=== PATIENT | male | born 1955 | race Caucasian/White ===

== ENCOUNTER 2023-07-09 11:21 | Outpatient (AMB) | payer MEDICARE, SELFPAY ==
--- NOTE | 2023-07-09 11:21 | MHC.PC.OV ---
Vital Signs 07/09/23 11:22 Height 5 ft 8 in BMI Reason not done Patient refused/unable BP 136/60 Blood Pressure Location Lt brachial Position Sitting Pulse 76 Pulse Source Pulse Oximeter Pulse Oximetry (%) 97 Oxygen Delivery Method Room Air Intake Visit Reasons: DM F/U Heel Curver: Not Required per policy Accompanied by: Self / Same As Patient Allergies levofloxacin [Levaquin] Allergy (Unknown, Verified 07/09/23 11:22) hives Medication List - Last Reconciled 07/09/23 by Abilio Chand MD atorvastatin 80 mg PO DAILY blood sugar diagnostic (OneTouch Ultra Test strips) Test 3 times daily blood sugar diagnostic Onetouch Ultra lancets use to check once a day blood-glucose meter (OneTouch Ultra2 Meter) Test 3 times Daily chair, wheel (Wheel chair) As directed chair, wheel (Wheel chair) As directed clopidogrel 75 mg PO DAILY empagliflozin (Jardiance) 10 mg PO QAM glipizide ER 5 mg PO DAILY insulin detemir U-100 (Levemir FlexTouch U-100 Insulin) 85 units (0.85 mL) subcut DAILY 30 days ketoconazole 2% 1 appl topical BID ketoconazole-hydrocortisone 2-2.5 % tid prn topical; lisinopril-hydrochlorothiazide 10-12.5 mg 1 tab PO DAILY metformin 1,000 mg (2 x 500 mg) PO BID 90 days paroxetine HCl 30 mg PO DAILY pen needle, diabetic As directed with insulin daily tamsulosin 0.4 mg PO DAILY trazodone 50 mg PO BEDTIME PRN Tobacco use date assessed: 12/14/22 Fall risk assessment: No Falls in past year Last assessed Fall Risk: 07/09/23 Dental Screening Dental Screen Date: 07/09/23 Did you have a dental visit in the last 12 months?: No Did you have a dental problem in the last 6 months where you did not have access to dental care?: No Was dental information given to patient?: Patient has dentist HPI DM F/U HPI Details DM hypertension and hyperlipidemia; sees endo; stable PFSH Medical History Obesity Adult general medical exam Screening for prostate cancer Peripheral vascular disease Diabetes mellitus Hyperlipidemia Surgical History History of colonoscopy History of angioplasty of vein Amputated right leg History of foot surgery Family History Father No problems noted. Mother No problems noted. Social History Housing: Apartment Alcohol intake: never Patient Tobacco Use Status: Former Tobacco user Quit Date: 20 years ago e-Cigarette/Vaping Use: Never Used Second Hand Smoke Exposure: No service: No Current occupational status: retired and disabled Cognitive needs: Yes Hearing needs: No Vision needs: Yes Questionnaire PHQ-9 Over the last 2 weeks, how often have you been bothered by any of the following problems? 1. Little interest or pleasure in doing things: not at all 2. Feeling down, depressed, or hopeless: not at all 3. Trouble falling or staying asleep, or sleeping too much: not at all 4. Feeling tired or having little energy: not at all 5. Poor appetite or overeating: not at all 6. Feeling bad about yourself - or that you are a failure or have let yourself or your family down: not at all 7. Trouble concentrating on things, such as reading the newspaper or watching television: not at all 8. Moving or speaking so slowly that other people could have noticed. Or the opposite - being so fidgety or restless that you have been moving around a lot more than usual: not at all 9. Thoughts that you would be better off or of hurting yourself in some way: not at all Total score: 0 Depression Screening Interpretation: Negative Source: Developed by Drs. William Salmeron, Anupama Mayo, Koby Mccray and colleagues, with an educational jayce from [employer]. Thrive Questionnaire Date Thrive assessed: 07/09/23 I am a: Patient What is your living situation today?: I have a steady place to live Within the past 12 months, did the food you bought not last and you didn't have the money to get more?: Never true Within the past 12 months, did you worry whether your food would run out before you got money to buy more?: Never true Do you have trouble paying for medicines?: No Do you have trouble getting transportation to medical appointments?: No Do you have trouble paying your heating and electricity bill?: No Do you have trouble taking care of your child, family member or friend?: No Do you have trouble with day-to-day activities such as bathing, preparing meals, shopping, managing finances, etc.?: No Are you currently unemployed and looking for a job?: No Are you interested in more education?: No Please select the resources that you would like help with: None AUDIT C Alcohol Use Questionnaire (AUDIT-C) 1. How often do you have a drink containing alcohol?: Never 3. How often do you have six or more drinks on one occasion?: Never Total Score: 0 Score Reviewed/Action Taken: No IVY-7 AMB Questionnaire IVY-7 Date IVY - 7 assessed: 07/09/23 Feeling nervous, anxious, or on edge: 0 = Not at all Not being able to stop or control worryin = Not at all Worrying too much about different things: 0 = Not at all Trouble relaxin = Not at all Being so restless that it is hard to sit still: 0 = Not at all Becoming easily annoyed or irritable: 0 = Not at all Feeling afraid as if something awful might happen: 0 = Not at all Total IVY-7 score (0-4 normal; 5-9 mild; 10-14 moderate; 15-21 severe): 0 Source: Developed by Drs. William Salmeron, Anupama Mayo, Koby Mccray and colleagues, with an educational jayce from [employer]. Review of Systems Const Denies chills, Denies headache(s) and Denies weight loss ENT Denies headache(s) Card Denies chest pain, Denies syncope, Denies irregular heart rhythm and Denies dyspnea Resp Denies chest congestion, Denies cough and Denies dyspnea GI Denies abdominal pain, Denies change in stool character, Denies nausea and Denies vomiting Musc Denies deformity and Denies joint swelling Neuro Denies syncope and Denies headache(s) Physical exam (Primary Care) Vital Signs: Last Vital Signs Pulse 76 07/09/23 11:22 BP 136/60 07/09/23 11:22 Pulse Ox 97 07/09/23 11:22 Oxygen Delivery Method Room Air 07/09/23 11:22 Tobacco/Smoking Status: Tobacco use Status Tobacco use date assessed 12/14/22 07/09/23 11:24 Patient Tobacco Use Status Former Tobacco user 07/09/23 11:24 e-Cigarette/Vaping Use Never Used 07/09/23 11:24 PHQ-9: PHQ-9 Score PHQ-9: Total score 0 07/09/23 11:24 Depression Screening Interpretation: Negative Thrive Assessment: Date of Thrive Assessment Date Thrive assessed 07/09/23 07/09/23 11:24 Const General: cooperative, comfortable, no acute distress and alert Neck Neck: Yes no lymphadenopathy Thyroid: Thyroid normal Resp Effort & Inspection: normal respiratory effort Auscultation: clear to auscultation bilaterally Percussion: percussion normal Cardio Jugular venous distension: no JVD Palpation: normal PMI Rate: regular rate Rhythm: regular rhythm Heart sounds: S1 normal heart sound present and S2 normal heart sound present GI Inspection: Yes normal to inspection Palpation (GI): No hepatosplenomegaly present Skin General skin exam: no rashes or lesions noted Extrem General: Yes no clubbing, cyanosis or edema Assessment and Plan Assessment & Plan (1) Hyperlipidemia: Code(s): E78.5 - Hyperlipidemia, unspecified Qualifiers: Hyperlipidemia type: unspecified Qualified Code(s): E78.5 - Hyperlipidemia, unspecified (2) Hypertension: Code(s): I10 - Essential (primary) hypertension Qualifiers: Hypertension type: unspecified Qualified Code(s): I10 - Essential (primary) hypertension (3) Diabetes mellitus with coincident hypertension: Code(s): E11.9 - Type 2 diabetes mellitus without complications; I10 - Essential (primary) hypertension Plan: stable; as per endo Orders: Orders Lipid Panel Today E78.5 - Hyperlipidemia, unspecified Complete Blood Count Auto Diff Today D64.9 - Anemia, unspecified Comprehensive Carbon. Panel Fast Today N28.9 - Disorder of kidney and ureter, unspecified Hemoglobin A1c Today R73.9 - Hyperglycemia, unspecified Thyroid Stimulating Hormone Today E03.9 - Hypothyroidism, unspecified Coding Level of Care Code Est Pt Level 4 (72869) Diagnoses Hyperlipidemia, unspecified hyperlipidemia type E78.5 Hyperlipidemia type: unspecified Hypertension, unspecified type I10 Hypertension type: unspecified Diabetes mellitus with coincident hypertension E11.9; I10 Additional Codes PHQ-9 - 83367 - PHQ-9 Billing: ([id number])
[2023-07-09 11:22] VITALS: BP 136/60; PULSE 76; O2SAT 97
== END 2023-07-09 11:37 | disposition home or self-care (01) ==
PROVIDERS: PCP Internal Medicine; Visit Provider Internal Medicine
DX: E78.5 Hyperlipidemia, unspecified (principal); I10 Essential (primary) hypertension; E11.65 Type 2 diabetes mellitus with hyperglycemia; Z89.611 Acquired absence of right leg above knee
CPT/HCPCS: 99214

== ENCOUNTER 2023-10-23 10:28 | Outpatient (AMB) | payer MEDICARE, SELFPAY ==
[2023-10-23 10:36] VITALS: BP 138/72; PULSE 85; O2SAT 98
--- NOTE | 2023-10-23 10:36 | A.OFFPC_ITS ---
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 Actuary Manager: Not Required per policy Accompanied by: Self / Same As Patient Allergies levofloxacin [Levaquin] Allergy (Unknown, Verified 10/23/23 10:36) hives Medication List - Last Reconciled 10/23/23 by Abilio Chand MD atorvastatin 80 mg PO DAILY blood sugar diagnostic (OneTouch Ultra Test strips) Test 3 times daily blood sugar diagnostic Onetouch Ultra lancets use to check once a day blood-glucose meter (OneTouch Ultra2 Meter) Test 3 times Daily chair, wheel (Wheel chair) As directed chair, wheel (Wheel chair) As directed clopidogrel 75 mg PO DAILY empagliflozin (Jardiance) 10 mg PO QAM glipizide ER 5 mg PO DAILY insulin detemir U-100 (Levemir FlexTouch U-100 Insulin) 85 units (0.85 mL) subcut DAILY 30 days ketoconazole 2% 1 appl topical BID ketoconazole-hydrocortisone 2-2.5 % tid prn topical; lisinopril-hydrochlorothiazide 10-12.5 mg 1 tab PO DAILY metformin 1,000 mg (2 x 500 mg) PO BID 90 days paroxetine HCl 30 mg PO DAILY pen needle, diabetic As directed with insulin daily tamsulosin 0.4 mg PO DAILY trazodone 50 mg PO BEDTIME PRN Tobacco use date assessed: 10/23/23 Fall risk assessment: No Falls in past year Last assessed Fall Risk: 10/23/23 Dental Screening Dental Screen Date: 10/23/23 Did you have a dental visit in the last 12 months?: No Did you have a dental problem in the last 6 months where you did not have access to dental care?: No Was dental information given to patient?: Patient has dentist HPI 3 month f/u HPI Details DM hyperlip and htn; stable [facility] Medical History Obesity Adult general medical exam Screening for prostate cancer Peripheral vascular disease Diabetes mellitus Hyperlipidemia Surgical History History of colonoscopy History of angioplasty of vein Amputated right leg History of foot surgery Family History Father No problems noted. Mother No problems noted. Social History Housing: Apartment Alcohol intake: never Patient Tobacco Use Status: Former Tobacco user Quit Date: 20 years ago e-Cigarette/Vaping Use: Never Used Second Hand Smoke Exposure: No service: No Current occupational status: retired and disabled Cognitive needs: Yes Hearing needs: No Vision needs: Yes Questionnaire PHQ-9 Over the last 2 weeks, how often have you been bothered by any of the following problems? 1. Little interest or pleasure in doing things: not at all 2. Feeling down, depressed, or hopeless: not at all 3. Trouble falling or staying asleep, or sleeping too much: not at all 4. Feeling tired or having little energy: not at all 5. Poor appetite or overeating: not at all 6. Feeling bad about yourself - or that you are a failure or have let yourself or your family down: not at all 7. Trouble concentrating on things, such as reading the newspaper or watching television: not at all 8. Moving or speaking so slowly that other people could have noticed. Or the opposite - being so fidgety or restless that you have been moving around a lot more than usual: not at all 9. Thoughts that you would be better off or of hurting yourself in some way: not at all Total score: 0 Depression Screening Interpretation: Negative Depression Screening Done: Yes 14943 - PHQ-9 Billing: Yes Source: Developed by Drs. William Salmeron, Anupama Mayo, Koby Mccray and colleagues, with an educational jayce from [employer]. Thrive Questionnaire Date Thrive assessed: 10/23/23 I am a: Patient What is your living situation today?: I have a steady place to live Within the past 12 months, did the food you bought not last and you didn't have the money to get more?: Never true Within the past 12 months, did you worry whether your food would run out before you got money to buy more?: Never true Do you have trouble paying for medicines?: No Do you have trouble getting transportation to medical appointments?: No Do you have trouble paying your heating and electricity bill?: No Do you have trouble taking care of your child, family member or friend?: No Do you have trouble with day-to-day activities such as bathing, preparing meals, shopping, managing finances, etc.?: No Are you currently unemployed and looking for a job?: No Are you interested in more education?: No Please select the resources that you would like help with: None AUDIT C Alcohol Use Questionnaire (AUDIT-C) 1. How often do you have a drink containing alcohol?: Never 3. How often do you have six or more drinks on one occasion?: Never Total Score: 0 Score Reviewed/Action Taken: No IVY-7 AMB Questionnaire IVY-7 Date IVY - 7 assessed: 10/23/23 Feeling nervous, anxious, or on edge: 0 = Not at all Not being able to stop or control worryin = Not at all Worrying too much about different things: 0 = Not at all Trouble relaxin = Not at all Being so restless that it is hard to sit still: 0 = Not at all Becoming easily annoyed or irritable: 0 = Not at all Feeling afraid as if something awful might happen: 0 = Not at all Total IVY-7 score (0-4 normal; 5-9 mild; 10-14 moderate; 15-21 severe): 0 Source: Developed by Drs. William Salmeron, Anupama Mayo, Koby Mccray and colleagues, with an educational jayce from [employer]. IVY-7 Assessment Billing IVY-7 Assessment Tool: IVY-7 Assessment 45327 Review of Systems Const Denies chills, Denies headache(s) and Denies weight loss ENT Denies headache(s) Card Denies chest pain, Denies syncope, Denies irregular heart rhythm and Denies dyspnea Resp Denies chest congestion, Denies cough and Denies dyspnea GI Denies abdominal pain, Denies change in stool character, Denies nausea and Denies vomiting Musc Denies deformity and Denies joint swelling Neuro Denies syncope and Denies headache(s) Physical exam (Primary Care) Vital Signs: Last Vital Signs Pulse 85 10/23/23 10:36 BP 138/72 10/23/23 10:36 Pulse Ox 98 10/23/23 10:36 Oxygen Delivery Method Room Air 10/23/23 10:36 Tobacco/Smoking Status: Tobacco use Status Tobacco use date assessed 10/23/23 10/23/23 10:37 Patient Tobacco Use Status Former Tobacco user 10/23/23 10:36 e-Cigarette/Vaping Use Never Used 10/23/23 10:36 PHQ-9: PHQ-9 Score PHQ-9: Total score 0 10/23/23 11:00 Depression Screening Interpretation: Negative Thrive Assessment: Date of Thrive Assessment Date Thrive assessed 10/23/23 10/23/23 10:37 Const General: cooperative, comfortable, no acute distress and alert Neck Neck: Yes no lymphadenopathy Thyroid: Thyroid normal Resp Effort & Inspection: normal respiratory effort Auscultation: clear to auscultation bilaterally Percussion: percussion normal Cardio Jugular venous distension: no JVD Palpation: normal PMI Rate: regular rate Rhythm: regular rhythm Heart sounds: S1 normal heart sound present and S2 normal heart sound present GI Inspection: Yes normal to inspection Palpation (GI): No hepatosplenomegaly present Skin General skin exam: no rashes or lesions noted Extrem General: Yes no clubbing, cyanosis or edema Results AMB Hemoglobin A1c AMB Hemoglobin A1c 7.4 % Last Edit by PEÑA Hood on 10/23/23 11:01 Results Reviewed Results Reviewed: Laboratory Last Values Hgb A1c (Clinic) 7.4 % (4.0-6.0) H 10/23/23 10:37 Assessment and Plan Assessment & Plan (1) Diabetes mellitus with coincident hypertension: Code(s): E11.9 - Type 2 diabetes mellitus without complications; I10 - Essential (saurabh tobin) hypertension Plan: sees endo; stable (2) Hypertension: Code(s): I10 - Essential (primary) hypertension Qualifiers: Hypertension type: unspecified Qualified Code(s): I10 - Essential (primary) hypertension Plan: stable; same rx (3) Hyperlipidemia: Code(s): E78.5 - Hyperlipidemia, unspecified Qualifiers: Hyperlipidemia type: unspecified Qualified Code(s): E78.5 - Hyperlipidemia, unspecified Plan: stable; same rx Orders: Orders AMB Hemoglobin A1c Today E11.9 - Type 2 diabetes mellitus without complications, I10 - Essential (primary) hypertension Lipid Panel Today E78.5 - Hyperlipidemia, unspecified Glucose Fasting Today R73.9 - Hyperglycemia, unspecified Hemoglobin A1c Today R73.9 - Hyperglycemia, unspecified Referrals Urology Referral N43.3 - Hydrocele, unspecified Coding Level of Care Code Est Pt Level 4 (58376) Diagnoses Diabetes mellitus with coincident hypertension E11.9; I10 Hypertension, unspecified type I10 Hypertension type: unspecified Hyperlipidemia, unspecified hyperlipidemia type E78.5 Hyperlipidemia type: unspecified Additional Codes IVY-7 Assessment Billing - IVY-7 Assessment Tool: IVY-7 Assessment 22201 ([id number])
== END 2023-10-23 10:57 | disposition home or self-care (01) ==
PROVIDERS: PCP Internal Medicine; Visit Provider Internal Medicine
DX: E11.69 Type 2 diabetes mellitus with other specified complication (principal); Z89.611 Acquired absence of right leg above knee; I10 Essential (primary) hypertension; E78.5 Hyperlipidemia, unspecified
CPT/HCPCS: 83036; 99214

== ENCOUNTER 2023-12-06 09:00 | Outpatient (AMB) | payer MEDICARE, SELFPAY ==
--- NOTE | 2023-12-06 09:04 | A.OFFVIS_ITS ---
Intake Intake Visit Reasons: ?hydrocele Intake Note: New patient presents for initial visit for possible hydrocele Urology Medication: Tamsulosin Blood Thinners: Clopidogrel Objects Conservator Required: No Accompanied by: Self / Same As Patient Allergies levofloxacin [Levaquin] Allergy (Unknown, Verified 12/06/23 16:55) hives Medication List - Last Reconciled 12/06/23 by REJI Alfaro- blood sugar diagnostic (OneTouch Ultra Test strips) Test 3 times daily blood sugar diagnostic Onetouch Ultra lancets use to check once a day blood-glucose meter (OneTouch Ultra2 Meter) Test 3 times Daily chair, wheel (Wheel chair) As directed chair, wheel (Wheel chair) As directed clopidogrel 75 mg PO DAILY empagliflozin (Jardiance) 10 mg PO QAM glipizide ER 5 mg PO DAILY insulin glargine units subcut ketoconazole 2% 1 appl topical BID lisinopril-hydrochlorothiazide 10-12.5 mg 1 tab PO DAILY metformin 1,000 mg (2 x 500 mg) PO BID 90 days paroxetine HCl 30 mg PO DAILY pen needle, diabetic As directed with insulin daily tamsulosin 0.4 mg PO DAILY trazodone 50 mg PO BEDTIME PRN HPI HPI Comments 2 History of Present Illness Details Fco is a 68-year-old male patient of Dr. Chand. He has a past medical history of obesity, peripheral vascular disease, diabetes, hyperlipidemia, right-sided above the knee leg amputation, and partial left- sided toe amputations. He presents to the office today as a new patient for l eft-sided hydrocele. In discussion with the patient today he reports having had previous hydrocelectomy on the left side approximately 10 years ago at [facility] however has noted increased in hydrocele over the last few years however feels it is becoming more bothersome. In assessment of the patient today large left-sided hydrocele noted. Patient with fungal like appearing rash to his groin area. Discussed at length further treatment options for hydrocele with in office drainage verses surgical intervention under anesthesia. Discussed risks and benefits of these treatment options. Also discussed surveillance monitoring however patient does feel hydrocele is very bothersome. In review of patient's chart it appears A1c 10/31 7.4. Discussed importance of managing diabetes as well as tight glucose control for healing process of hydrocelectomy. He otherwise denies any bothersome urinary issues. He denies urinary urgency, urinary frequency, incontinence, nocturia, hematuria, dysuria, foul smelling urine, changes to urinary stream, flank pain, fever, and or chills. He is happy with his current voiding parameters. He discusses losing his in 2016 in shortly thereafter underwent right-sided [id number] leg amputation. [facility] Medical History Obesity Adult general medical exam Screening for prostate cancer Peripheral vascular disease Diabetes mellitus Hyperlipidemia Surgical History History of colonoscopy History of angioplasty of vein Amputated right leg History of foot surgery Family History Father No problems noted. Mother No problems noted. Social History Housing: Apartment Alcohol intake: never Patient Tobacco Use Status: Former Tobacco user Quit Date: 20 years ago e-Cigarette/Vaping Use: Never Used Second Hand Smoke Exposure: No service: No Current occupational status: retired and disabled Cognitive needs: Yes Hearing needs: No Vision needs: Yes Review of Systems ENT Reports no additional complaints and Reports epistaxis Card Reports as per HPI Resp Reports no additional complaints GI Reports no additional complaints Reports as per HPI Musc Reports as per HPI Neuro Reports no additional complaints Psych Reports no additional complaints Endo Reports as per HPI Eliud/Lymph Reports no additional complaints Aller/Immun Reports no additional complaints Physical Exam Const General: cooperative, comfortable, no acute distress, well developed, alert, awake and poor hygiene Nutritional Appearance: overweight Orientation/consciousness: patient oriented x3 Limitations: wheelchair HEENT Head: Yes normal to inspection, Yes normocephalic and Yes atraumatic Eyes General: appearance normal, both eyes and all related structures Neck Neck: Yes normal visual inspection Chest Chest palpation & inspection: normal inspection of the chest Resp Effort & Inspection: normal respiratory effort and able to speak in complete s entences Cardio Rate: regular rate GI Inspection: Yes normal to inspection General: Yes no CVA tenderness Penis: normal penis Meatus: meatus normal Scrotum: Hydrocele present (large) on the left Back/Spine/Pelvis Back: no CVA tenderness Neuro General: patient oriented x3 Extrem Other: Right above the knee leg amputation Left foot wrapped Psych Appearance: grossly normal Mental Status: mental status grossly normal Speech and movement: Normal speech and movement present and Clear speech present Affect: normal affect Attitude: cooperative Thought process: Normal thought process present Thought content: Normal thought content present Insight: Fair insight present (Psych) Judgement: Fair judgement present (Psych) Assessment & Plan Assessment & Plan (1) Hydrocele: Code(s): N43.3 - Hydrocele, unspecified Plan: Risks, benefits and alternatives to therapy were discussed. These include but are not limited to infection, bleeding, damage to local organs and tissues, need for further interventions. ? Anesthetic risks regarding cardiac arrhythmia, blood clots, and potential mortality were discussed. The patient understands the typical recovery time and the outpatient nature of the procedure. After consideration of these risks the patient gives full informed consent and they wish to move ahead with the procedure. Plan In assessment of the patient today large left-sided hydrocele Dr. Hylton in to assess patient Discussed at length surgical option versus surveillance monitoring verses in office drainage; discussed risks and benefits of these interventions Discussed possible surgical clearance given comorbidities. Discussed holding anticoagulation. Patient currently denies any bothersome urinary issues or concerns. He is happy with current voiding parameters. Discussed, educated, and stressed the importance of managing diabetes for improvement in overall health and well-being as well as for healing process of hydrocelectomy. Will schedule for left-sided hydrocelectomy with Dr. Hylton as discussed Follow-up status post left-sided hydrocelectomy per Dr. Hylton's order; or sooner with any issues, concerns, and or questions. Orders: Orders AMB Urinalysis Automated Today Z13.9 - Encounter for screening, unspecified Medications: New nystatin apply to bilateral groin area 1 appl topical TID 90 days 60 grams 0RF Patient Instructions: The patient had an opportunity to ask questions regarding the treatment plan. All questions were answered. Physical exam, labs, and imaging were discussed and reviewed in detail. As well as risks, benefits, and discussion of treatment choices. No major barriers to understanding were identified. The patient expressed understanding and agreement with the above treatment plan. The patient was made aware they should contact our office by phone for worsening of their current condition, the appearance of new symptoms, or with any ques tions or concerns. Compliance is encouraged with any medications and follow up testing that is ordered. It is a privilege to be allowed the opportunity to participate in? your urological care.? Again, if you have any questions or concerns If you have any questions or concerns please do not hesitate to contact me. The office is [phone]. This note is constructed using voice recognition software. While every effort has been made to ensure accuracy licensed appraiser errors may have been included. Yours sincerely, GORAN Alfaro Coding Level of Care Code New Pt Level 4 (05564) Diagnoses Hydrocele N43.3
== END 2023-12-06 09:46 | disposition home or self-care (01) ==
PROVIDERS: PCP Internal Medicine; Visit Provider Nurse Practitioner Family
DX: N43.3 Hydrocele, unspecified (principal)
CPT/HCPCS: 99204

== ENCOUNTER → 2023-12-06 09:00 | Outpatient (BNVA) | payer MEDICARE, SELFPAY | PROVIDERS: PCP Internal Medicine; Visit Provider Nurse Practitioner Family | DX: N43.3 Hydrocele, unspecified (principal) | CPT/HCPCS: 99202 ==

== ENCOUNTER 2024-02-11 07:35 | Day surgery (SDC) | payer MEDICARE, SELFPAY ==
[2024-02-07 11:25] VITALS: BMI 33.8
[2024-02-11 09:11] VITALS: BP 161/70; PULSE 75; RESP 16; TEMP 37.2; O2SAT 95; BMI 33.0
--- NOTE | 2024-02-11 09:26 | HO.ANESPROP2 ---
[facility] Active Problems Active Problems: All Active Problems Hydrocele (Acute) Diabetes mellitus with coincident hypertension (Acute) Cystocele, male (Acute) Hypertension (Acute) Depression (Acute) Obesity (Acute) Adult general medical exam (Acute) Screening for prostate cancer (Acute) Diabetes mellitus (Acute) Hyperlipidemia (Acute) Past Medical History Medical History HTN (hypertension) Obesity Adult general medical exam Screening for prostate cancer Peripheral vascular disease Diabetes mellitus Hyperlipidemia Family History Family History Father No problems noted. Mother No problems noted. Surgical History Surgical History History of colonoscopy History of angioplasty of vein Amputated right leg History of foot surgery History of Problems with Anesthesia: No Social History Social History Housing: Apartment Alcohol intake: never Patient Tobacco Use Status: Former Tobacco user Quit Date: 20 yrs ago e-Cigarette/Vaping Use: Never Used Second Hand Smoke Exposure: No Use of substances other than those prescribed or required for medical reasons: No Are you DNR?: No Advance Directives: No Advance Directives Information Provided: Yes service: No Current occupational status: retired and disabled Cognitive needs: Yes Hearing needs: No Vision needs: Yes Meds Allergies Allergy/AdvReac Type Severity Reaction Status Date / Time levofloxacin [Levaquin] Allergy Unknown hives Verified 02/11/24 08:53 Home Medications ?Medication ?Instructions ?Recorded ?Confirmed ?Last Taken ?Type clopidogrel 75 mg tablet 75 mg PO DAILY 05/26/21 10/23/23 02/04/24 History insulin glargine 100 unit/mL (3 unit subcut 12/06/23 Unknown History mL) subcutaneous pen Exam Height,Weight and Vital Signs: Height 5 ft 7.72 in Weight 97.522 kg Last Vital Signs Temp 98.9 F 02/11/24 09:11 Pulse 75 02/11/24 09:11 Resp 16 02/11/24 09:11 BP 161/70 H 02/11/24 09:11 Pulse Ox 95 02/11/24 09:11 O2 Del Method Room Air 02/11/24 09:11 Airway Mallampati Class: III TM Dist: >3cm Neck ROM: Full Partial: Upper Loose/Missing/Broken Teeth: Yes, Upper and Lower Heart: RRR Lungs: CTA Assessment and Plan Assessment Anesthesia Assessment: Anesthesia Plan Discussed and Chart Reviewed Final Anesthetic Review History of Problems with Anesthesia: No NPO: Yes ASA Class: III Final Preanesthetic Review: Meds/Allgs Chart Reviewed, Consent Obtained/Reviewed and Anes Risks/Benef Reviewed Patient Risk: Intermediate Procedure Risk: Low Anesthetic Plan Anesthetic Plan: GA Disposition: Standard PACU
[2024-02-11 09:40] LABS: Glucose, Whole Blood 148 mg/dL (60-115)
--- NOTE | 2024-02-11 11:40 | MHC.SHP ---
Pre-Procedural Eval Section A - 24 Hr Update-Section A only Date of Service: 02/11/24 The patient is an INPATIENT: No Changes since office visit: No Cold of Flu in the past 2 weeks, No New Medical Problems, No Changes in Medication and No Patient answered all questions The patient has been examined within 24 hours of the surgical procedure. The History & Physical has been completed within 30 days and I have reviewed it.: No Section B - Complete if H&P > 30 days Chief Complaint: Hydrocele, unspecified Relevant Family History (Specify if Yes): No Relevant Social History: Tobacco Use Present Medications: see Short Stay Collaborative assessment Medical History: Significant History History of Previous Operations: Relevant previous surgery/procedure and date(s) Allergies: Allergies Allergy/AdvReac Type Severity Reaction Status Date / Time levofloxacin [Levaquin] Allergy Unknown hives Verified 02/11/24 08:53 Review of Systems Sugical H&P ROS: Negative: Constitution, Cardiovascular, Respiratory, Neurological, Psychiatric, Hem-Onc, Allergic/Immunologic, Gastrointestinal, Genitourinary, Musculoskeletal, Integumentary, Endocrine and Eyes/Ears/Nose/Throat Exam Surgical H&P Exam: Normal: HEENT, Normal: Heart, Normal: Lungs, Normal: Extremities, Normal: Abdomen, Normal: Skin and Normal: Neurological Plan Diagnosis/Plan: Unchanged (Recurrent left hydrocele here for hydrocelectomy) I have reviewed the history and physical and performed a pertinent physical examination on my patient. No changes have occurred unless specified. Time Spent With Patient Time: Total time managing care of this patient today ____ minutes.
--- NOTE | 2024-02-11 13:02 | W.PM.OPN ---
Operative Note Operative Note Date of Service: 02/11/24 Narrative: PreOperative Diagnosis: Large left recurrent hydrocele Post Operative Diagnosis: Large left recurrent hydrocele Procedure: Hydrocelectomy Surgeon: Dr James Hylton Anesthesia: General Indications for procedure: Recurrent left hydrocele with persistent discomfort Procedure: After informed consent was verified the patient was brought to the operating room and placed in a supine position. Anesthesia was administered per protocol. Patient was appropriately shaved and genitals were prepped and draped in sterile fashion. Safety pause time-out was performed. Antibiotics being given. Local anesthetic was infiltrated under the skin in a horizontal fashion on the scrotum. Skin incision was made using a blade through the subdermal layer. The tunica around the testicle was elevated and dissected free from surrounding tissue. The avascular plane around the tunica was entered and using a wet sponge blunt dissection was performed. Any small bleeding perforators were cauterized. The testicle was delivered out of the scrotum and opened in a longitudinal fashion.. Fluid was removed - 650 cc. The testicle sac was inverted. Excess thickened sac was dissected and removed using a Thunderbeat cautery instrument to minimize porst procedure bleeding. A bottle neck procedure was performed to approximate edges using a running 3-0 Vicryl suture. Skin edges of the tunica were cauterized carefully in order to try to minimize postprocedure hematoma. Small accessory appendices were removed from the head of epididymis. The testicle with resected sac was placed back into a dependent portion of the scrotum. Overlying skin fascia layer was closed with a running 3-0 Vicryl suture. Two layers Skin was closed with interrupted 4-0 chromic sutures. Soft fluff sponges were placed with mesh pants as dressing. Local anesthetic was placed in inguinal cord for post procedure pain relief. Patient tolerated procedure well was extubated in operating room transferred in stable condition to the recovery area Pathology: Hydrocele sac Drains: None
[2024-02-11 13:12] VITALS: BP 114/68; PULSE 81; RESP 16; TEMP 36.4; O2SAT 96
[2024-02-11 13:17] VITALS: BP 102/71; PULSE 81; RESP 17; O2SAT 94
[2024-02-11 13:22] VITALS: BP 133/55; PULSE 75; RESP 17; O2SAT 94
[2024-02-11 13:27] VITALS: BP 123/59; PULSE 71; RESP 17; O2SAT 95
[2024-02-11 13:42] VITALS: BP 125/55; PULSE 74; RESP 16; TEMP 36.6; O2SAT 97
== END 2024-02-11 14:37 | disposition home or self-care (01) ==
PROVIDERS: PCP Internal Medicine; Visit Provider Urology
PROC: (CPT 55060; principal; 2024-02-11 09:50)
DX: N43.3 Hydrocele, unspecified (principal); R21 Rash and other nonspecific skin eruption; I73.9 Peripheral vascular disease, unspecified; E78.5 Hyperlipidemia, unspecified; E11.9 Type 2 diabetes mellitus without complications; Z89.611 Acquired absence of right leg above knee; Z89.422 Acquired absence of other left toe(s); E66.9 Obesity, unspecified; Z79.4 Long term (current) use of insulin; Z79.84 Long term (current) use of oral hypoglycemic drugs; Z79.899 Other long term (current) drug therapy; Z88.1 Allergy status to other antibiotic agents; Z87.891 Personal history of nicotine dependence
CPT/HCPCS: 55040; 82947; 88302; J0690; J2795; J3010

== ENCOUNTER → 2024-02-11 07:35 | Outpatient (BNV) | payer MEDICARE, SELFPAY | PROVIDERS: PCP Internal Medicine; Visit Provider Urology | DX: N43.3 Hydrocele, unspecified (principal) | CPT/HCPCS: 55040 ==

== ENCOUNTER 2024-03-13 10:25 | Outpatient (AMB) | payer MEDICARE, SELFPAY ==
--- NOTE | 2024-03-13 10:57 | A.OFFVIS_ITS ---
Intake Visit Reasons: Hydrocelectomy follow up Intake Note: Patient is Present for Follow Up Hydrocelectomy Urology Medication: Tamsulosin Antibiotic Allergies:Levofloxacin Blood Thinners:Clopidogrel Allergies levofloxacin [Levaquin] Allergy (Unknown, Verified 02/11/24 08:53) hives HPI Comments Details: Fco is a pleasant male. He is a patient of Dr. Chand. He has seen for the following urologic conditions - hydrocele Post hydrocelectomy Was recurrent Well healed Will call if has any issues COUNT INCLUDES [facility] Medical History HTN (hypertension) Obesity Adult general medical exam Screening for prostate cancer Peripheral vascular disease Diabetes mellitus Hyperlipidemia Surgical History History of colonoscopy History of angioplasty of vein Amputated right leg History of foot surgery Family History Father No problems noted. Mother No problems noted. Social History Housing: Apartment Alcohol intake: never Patient Tobacco Use Status: Former Tobacco user e-Cigarette/Vaping Use: Never Used Second Hand Smoke Exposure: No service: No Current occupational status: retired and disabled Cognitive needs: Yes Hearing needs: No Vision needs: Yes Review of Systems Const Denies chills and Denies fever(s) Card Reports no additional complaints and Denies syncope Resp Denies cough GI Denies abdominal pain and Denies heartburn Reports as per HPI and Denies change in libido Neuro Denies syncope Psych Denies change in libido Endo Denies change in libido Physical Exam Const General: cooperative, healthy appearing, comfortable and no acute distress Orientation/consciousness: patient oriented x3 HEENT Face and sinus: Yes normal facial exam Mouth: moist mucous membranes Neck Neck: Yes normal visual inspection, Yes full ROM and Yes trachea midline Chest Chest palpation & inspection: normal inspection of the chest Resp Effort & Inspection: normal respiratory effort, able to speak in complete sentences and no respiratory distress GI Inspection: Yes normal to inspection Back/Spine/Pelvis Cervical Spine: normal cervical lordosis Thoracic/Lumbar Spine: thoracic and lumbar spine normal to inspection Skin General skin exam: no rashes or lesions noted Neuro General: patient oriented x3, gait normal, tone normal and moves all extremities Extrem General: Yes normal to inspection and Yes capillary refill normal Assessment & Plan Assessment & Plan (1) Hydrocele: Code(s): N43.3 - Hydrocele, unspecified Category: Medical Plan P.r.n. follow-up Patient Instructions: Imaging studies, laboratory and physical exam results were discussed and reviewed in detail. No major barriers to patient understanding were identified. An opportunity to ask questions regarding the treatment plan was provided. All questions were answered. The patient expressed understanding and agreement with the above treatment plan. The patient is aware they should contact our office by phone for worsening of their current condition or the appearance of new urologic symptoms. Compliance is encouraged with any medications and followup testing that is ordered. It is a privilege to participate in the urologic care of your patient. If you have any questions or concerns regarding treatment for the above conditions, or other urologic issues, please do not hesitate to contact me. The office telephone contact is [phone]. This note is constructed using voice recognition software. While every effort has been made to ensure accuracy system specialist errors may have been included. Yours sincerely, Dr James Hylton MD, [facility] - Urology Providers of Expert, Compassionate Care for the Genitourinary System Coding Level of Care Code Global (03021) Diagnoses Hydrocele N43.3
== END 2024-03-13 11:33 | disposition home or self-care (01) ==
PROVIDERS: PCP Internal Medicine; Visit Provider Urology
DX: N43.3 Hydrocele, unspecified (principal)
CPT/HCPCS: 99024

== ENCOUNTER → 2024-03-13 10:25 | Outpatient (BNVA) | payer MEDICARE, SELFPAY | PROVIDERS: PCP Internal Medicine; Visit Provider Urology | DX: N43.3 Hydrocele, unspecified (principal) | CPT/HCPCS: 99212 ==

== ENCOUNTER 2024-04-28 12:59 | Outpatient (AMB) | payer MEDICARE, SELFPAY ==
[2024-04-28 13:03] VITALS: BP 130/62; PULSE 71; O2SAT 98
--- NOTE | 2024-04-28 13:03 | A.OFFPC_ITS ---
Vital Signs 04/28/24 13:03 Height 5 ft 7.72 in BMI Reason not done Patient refused/unable BP 130/62 Blood Pressure Location Lt brachial Position Sitting Pulse 71 Pulse Source Pulse Oximeter Pulse Oximetry (%) 98 Oxygen Delivery Method Room Air Intake Visit Reasons: [employer] Electric Meter Inspector Required: No Appeals Coordinator: Not Required per policy Accompanied by: Self / Same As Patient Allergies levofloxacin [Levaquin] Allergy (Unknown, Verified 04/28/24 13:04) hives Tobacco use date assessed: 10/23/23 Fall risk assessment: No Falls in past year Last assessed Fall Risk: 04/28/24 Dental Screening Dental Screen Date: 10/23/23 HPI AnnualPe HPI Details DM and HTN; stable on rx PFSH Medical History HTN (hypertension) Obesity Adult general medical exam Screening for prostate cancer Peripheral vascular disease Diabetes mellitus Hyperlipidemia Surgical History History of colonoscopy History of angioplasty of vein Amputated right leg History of foot surgery Family History Father No problems noted. Mother No problems noted. Social History Housing: Apartment Alcohol intake: never Patient Tobacco Use Status: Former Tobacco user e-Cigarette/Vaping Use: Never Used Second Hand Smoke Exposure: No service: No Current occupational status: retired and disabled Cognitive needs: Yes Hearing needs: No Vision needs: Yes Questionnaire Thrive Questionnaire Date Thrive assessed: 10/23/23 IVY-7 AMB Questionnaire IVY-7 Date IVY - 7 assessed: 10/23/23 Source: Developed by Drs. William Salmeron, Anupama Mayo, Koby Mccray and colleagues, with an educational jayce from [employer]. Review of Systems Const Denies chills, Denies fatigue, Denies headache(s) and Denies weight loss Eyes Denies change in vision, Denies diplopia and Denies eye pain ENT Denies vertigo, Denies dizziness, Denies headache(s) and Denies nasal discharge Card Denies chest pain, Denies rapid heart rate and Denies dyspnea on exertion Resp Denies chest congestion, Denies cough, Denies pain with cough and Denies dyspnea on exertion GI Denies abdominal pain, Denies hematochezia and Denies change in bowel habits Musc Denies myalgias, Denies arthralgias and Denies joint swelling Skin/Breast Denies lesions and Denies unusual bruising Neuro Denies vertigo, Denies dizziness, Denies headache(s) and Denies focal weakness Endo Denies fatigue Physical exam (Primary Care) Vital Signs: Last Vital Signs Pulse 71 04/28/24 13:03 BP 130/62 04/28/24 13:03 Pulse Ox 98 04/28/24 13:03 Oxygen Delivery Method Room Air 04/28/24 13:03 Tobacco/Smoking Status: Tobacco use Status Tobacco use date assessed 10/23/23 04/28/24 13:04 Patient Tobacco Use Status Former Tobacco user 04/28/24 13:04 e-Cigarette/Vaping Use Never Used 04/28/24 13:04 Thrive Assessment: Date of Thrive Assessment Date Thrive assessed 10/23/23 04/28/24 13:04 Const General: cooperative, healthy appearing and no acute distress Orientation/consciousness: oriented to person, oriented to place and oriented to time HENMT Head: Yes normal to inspection, Yes normocephalic and Yes atraumatic Mouth: Normal oral and palatal mucosa present and tongue normal Throat: Yes posterior oropharynx normal and Yes uvula midline Eyes General: appearance normal, both eyes and all related structures Neck Neck: Yes normal visual inspection, Yes full ROM and Yes no lymphadenopathy Thyroid: Thyroid normal Carotids: normal carotid upstroke Chest Chest palpation & inspection: normal inspection of the chest Resp Effort & Inspection: normal respiratory effort and able to speak in complete sentences Auscultation: clear to auscultation bilaterally Cardio Jugular venous distension: no JVD Palpation: normal PMI Rate: regular rate Rhythm: regular rhythm Heart sounds: S1 normal heart sound present and S2 normal heart sound present GI Inspection: Yes normal to inspection Palpation (GI): Soft to palpation and No hepatosplenomegaly present Auscultation: normal bowel sounds General: Yes no CVA tenderness Back/Spine/Pelvis Back: no CVA tenderness Skin General skin exam: no rashes or lesions noted Neuro General: oriented to person, oriented to place and oriented to time Extrem Other: right AKA Results AMB Hemoglobin A1c AMB Hemoglobin A1c 7.1 % Last Edit by PEÑA Hood on 04/28/24 13:17 Results Reviewed Results Reviewed: Laboratory Last Values Hgb A1c (Clinic) 7.1 % (4.0-6.0) H 04/28/24 13:05 Assessment and Plan Assessment & Plan (1) Adult general medical exam: Code(s): Z00.00 - Encounter for general adult medical examination without abnormal findings Plan: stable; do labs (2) Diabetes mellitus: Code(s): E11.9 - Type 2 diabetes mellitus without complications Plan: sees endo; stable (3) Hypertension: Code(s): I10 - Essential (primary) hypertension Qualifiers: Hypertension type: unspecified Qualified Code(s): I10 - Essential (primary) hypertension Plan: stable ;same rx Orders: Orders Thyroid Stimulating Hormone 04/28/24 Z13.29 - Encounter for screening for other suspected endocrine disorder Comprehensive [place]. Panel Fast 04/28/24 Z13.9 - Encounter for screening, unspecified Comprehensive [place]. Panel Fast Today Z13.9 - Encounter for screening, unspecified Hemoglobin A1c Today R73.9 - Hyperglycemia, unspecified Thyroid Stimulating Hormone Today Z13.29 - Encounter for screening for other suspected endocrine disorder AMB Hemoglobin A1c 04/28/24 E11.9 - Type 2 diabetes mellitus without complications, I10 - Essential (primary) hypertension Lipid Panel 04/28/24 Z13.220 - Encounter for screening for lipoid disorders Complete Blood Count Auto Diff 04/28/24 Z13.0 - Encounter for screening for diseases of the blood and blood-forming organs and certain disorders involving the immune mechanism Prostate Specific Antigen Scr 04/28/24 Z00.00 - Encounter for general adult medical examination without abnormal findings Lipid Panel Today Z13.220 - Encounter for screening for lipoid disorders Microalbumin, Random (w Creat) Today E11.69 - Type 2 diabetes mellitus with other specified complication, E66.01 - Morbid (severe) obesity due to excess calories Coding Level of Care Code Est Pt Prev Care >65y(03224) Diagnoses Adult general medical exam Z00.00 Diabetes mellitus E11.9 Hypertension, unspecified type I10 Hypertension type: unspecified
== END 2024-04-28 13:24 | disposition home or self-care (01) ==
PROVIDERS: PCP Internal Medicine; Visit Provider Internal Medicine
DX: E11.9 Type 2 diabetes mellitus without complications (principal); I10 Essential (primary) hypertension
CPT/HCPCS: 83036; 99397

== ENCOUNTER 2024-07-29 11:35 | Outpatient (AMB) | payer MEDICARE, SELFPAY ==
[2024-07-29 11:45] VITALS: BP 142/74; PULSE 93; O2SAT 95
--- NOTE | 2024-07-29 11:45 | MHC.PC.OV ---
Vital Signs 07/29/24 11:45 Height 5 ft 8 in BMI Reason not done Patient refused/unable BP 142/74 H Blood Pressure Location Lt brachial Position Sitting Pulse 93 Pulse Source Pulse Oximeter Pulse Oximetry (%) 95 Oxygen Delivery Method Room Air Intake Visit Reasons: 3mth f/u Rac Specialist Required: No Accompanied by: Self / Same As Patient Allergies levofloxacin [Levaquin] Allergy (Unknown, Verified 07/29/24 11:46) hives Medication List - Last Reconciled 07/30/24 by Abilio Chand MD blood sugar diagnostic Onetouch Ultra lancets use to check once a day blood sugar diagnostic (OneTouch Ultra Test strips) Test 3 times daily blood-glucose meter (OneTouch Ultra2 Meter) Test 3 times Daily chair, wheel (Wheel chair) As directed chair, wheel (Wheel chair) As directed clopidogrel 75 mg PO DAILY empagliflozin (Jardiance) 20 mg (2 x 10 mg) PO QAM glipizide ER 5 mg PO DAILY hydrocodone-acetaminophen 5-325 mg 1 tab PO Q4H PRN 7 days insulin glargine units subcut ketoconazole 2% 1 appl topical BID lisinopril-hydrochlorothiazide 10-12.5 mg 1 tab PO DAILY metformin 1,000 mg (2 x 500 mg) PO BID 90 days nystatin 1 appl topical TID 90 days paroxetine HCl 30 mg PO DAILY pen needle, diabetic As directed with insulin daily sulfamethoxazole-trimethoprim 400-80 mg (Bactrim) 1 tab PO DAILY tamsulosin 0.4 mg PO DAILY trazodone 50 mg PO BEDTIME PRN Tobacco use date assessed: 10/23/23 Fall risk assessment: No Falls in past year Last assessed Fall Risk: 07/29/24 Dental Screening Dental Screen Date: 10/23/23 HPI 3mth f/u HPI Details HTN on Rx; doing well and compliant [facility] Medical History HTN (hypertension) Obesity Adult general medical exam Screening for prostate cancer Peripheral vascular disease Diabetes mellitus Hyperlipidemia Surgical History History of colonoscopy History of angioplasty of vein Amputated right leg History of foot surgery Family History Father No problems noted. Mother No problems noted. Social History Housing: Apartment Alcohol intake: never Patient Tobacco Use Status: Former Tobacco user Tobacco use type: Cigarette e-Cigarette/Vaping Use: Never Used Second Hand Smoke Exposure: No service: No Current occupational status: retired and disabled Cognitive needs: Yes Hearing needs: No Vision needs: Yes Questionnaire Thrive Questionnaire Date Thrive assessed: 10/23/23 IVY-7 AMB Questionnaire IVY-7 Date IVY - 7 assessed: 10/23/23 Source: Developed by Drs. William Salmeron, Anupama Mayo, Koby Mccray and colleagues, with an educational jayce from [employer]. Review of Systems Const Denies chills, Denies headache(s) and Denies weight loss ENT Denies headache(s) Card Denies chest pain, Denies syncope, Denies irregular heart rhythm and Denies dyspnea Resp Denies chest congestion, Denies cough and Denies dyspnea GI Denies abdominal pain, Denies change in stool character, Denies nausea and Denies vomiting Musc Denies deformity and Denies joint swelling Neuro Denies syncope and Denies headache(s) Physical exam (Primary Care) Vital Signs: Last Vital Signs Pulse 93 07/29/24 11:45 BP 142/74 H 07/29/24 11:45 Pulse Ox 95 07/29/24 11:45 Oxygen Delivery Method Room Air 07/29/24 11:45 Tobacco/Smoking Status: Tobacco use Status Tobacco use date assessed 10/23/23 07/29/24 11:50 Patient Tobacco Use Status Former Tobacco user 07/29/24 11:50 Tobacco use type Cigarette 07/29/24 11:50 e-Cigarette/Vaping Use Never Used 07/29/24 11:50 Thrive Assessment: Date of Thrive Assessment Date Thrive assessed 10/23/23 07/29/24 11:50 Const General: cooperative, comfortable, no acute distress and alert Neck Neck: Yes no lymphadenopathy Thyroid: Thyroid normal Resp Effort & Inspection: normal respiratory effort Auscultation: clear to auscultation bilaterally Percussion: percussion normal Cardio Jugular venous distension: no JVD Palpation: normal PMI Rate: regular rate Rhythm: regular rhythm Heart sounds: S1 normal heart sound present and S2 normal heart sound present GI Inspection: Yes normal to inspection Palpation (GI): No hepatosplenomegaly present Skin General skin exam: no rashes or lesions noted Extrem General: Yes no clubbing, cyanosis or edema Coding Level of Care Code Est Pt Level 3 (14776) Diagnoses Hypertension, unspecified type I10 Hypertension type: unspecified Assessment & Plan Assessment & Plan (1) Hypertension: Code(s): I10 - Essential (primary) hypertension Category: Medical Qualifiers: Hypertension type: unspecified Qualified Code(s): I10 - Essential (primary) hypertension Plan: stable; same rx
== END 2024-07-29 12:08 | disposition home or self-care (01) ==
PROVIDERS: PCP Internal Medicine; Visit Provider Internal Medicine
DX: I10 Essential (primary) hypertension (principal)

== ENCOUNTER → 2024-07-29 11:35 | Outpatient (BNVA) | payer MEDICARE, SELFPAY | PROVIDERS: PCP Internal Medicine; Visit Provider Internal Medicine | DX: I10 Essential (primary) hypertension (principal); Z79.899 Other long term (current) drug therapy | CPT/HCPCS: 99212 ==

== ENCOUNTER 2025-01-02 14:16 | Outpatient (AMB) | payer MEDICARE, SELFPAY ==
--- NOTE | 2025-01-02 14:17 | MHC.PC.OV ---
Intake Visit Reasons: [facility] 12/29/24/Discharge f/u Intake Note: Patient is here for hospital discharge follow up. Patient was discharged from [facility] on 12/29/24. Lighting Adviser Required: No Sports Broadcasting Internship: Not Required per policy Accompanied by: Self / Same As Patient Allergies levofloxacin [Levaquin] Allergy (Unknown, Verified 01/02/25 14:19) hives Tobacco use date assessed: 01/02/25 Fall risk assessment: No Falls in past year Last assessed Fall Risk: 01/02/25 Dental Screening Dental Screen Date: 01/02/25 Did you have a dental visit in the last 12 months?: No Did you have a dental problem in the last 6 months where you did not have access to dental care?: No Was dental information given to patient?: No HPI HPI Comments History of Present Illness Details 69 y/o male patient who presents today for Tele-health appointment after [facility] (SNF) discharge. S/p Left BKA and was admitted on 12/24 - 12/29 for Physical Therapy. He reports that he has wounds that need to be managed by a Wound Nurse and he has not seen anyone come to his house after discharge. Reports calling Vascular surgery and to be told that they are working on getting him a wound care Nurse. After the discharge he needed to purchase special toilet sit, transfer board and Hospital bed - reports that no one provided these supplies for him and ended up purchasing them out of his pocket. Pt frustrated that no one is helping him. [facility] Medical History HTN (hypertension) Obesity Adult general medical exam Screening for prostate cancer Peripheral vascular disease Diabetes mellitus Hyperlipidemia Surgical History (Updated 01/02/25 @ 14:45 by Kim Mark NP) S/P below knee amputation History of colonoscopy History of angioplasty of vein Amputated right leg History of foot surgery Family History Father No problems noted. Mother No problems noted. Social History Housing: Apartment Alcohol intake: never Patient Tobacco Use Status: Former Tobacco user Tobacco use type: Cigarette e-Cigarette/Vaping Use: Never Used Second Hand Smoke Exposure: No service: No Current occupational status: retired and disabled Cognitive needs: Yes Hearing needs: No Vision needs: Yes Questionnaire PHQ-9 Over the last 2 weeks, how often have you been bothered by any of the following problems? 1. Little interest or pleasure in doing things: not at all 2. Feeling down, depressed, or hopeless: not at all 3. Trouble falling or staying asleep, or sleeping too much: not at all 4. Feeling tired or having little energy: not at all 5. Poor appetite or overeating: not at all 6. Feeling bad about yourself - or that you are a failure or have let yourself or your family down: not at all 7. Trouble concentrating on things, such as reading the newspaper or watching television: not at all 8. Moving or speaking so slowly that other people could have noticed. Or the opposite - being so fidgety or restless that you have been moving around a lot more than usual: not at all 9. Thoughts that you would be better off or of hurting yourself in some way: not at all Total score: 0 Depression Screening Interpretation: Negative Depression Screening Done: Yes Source: Developed by Drs. William Salmeron, Anupama Mayo, Koby Mccray and colleagues, with an educational jayce from [employer]. Thrive Questionnaire Date Thrive assessed: 01/02/25 I am a: Patient What is your living situation today?: I have a steady place to live Within the past 12 months, did the food you bought not last and you didn't have the money to get more?: Never true Within the past 12 months, did you worry whether your food would run out before you got money to buy more?: Never true Do you have trouble paying for medicines?: No Do you have trouble getting transportation to medical appointments?: No Do you have trouble paying your heating and electricity bill?: No Do you have trouble taking care of your child, family member or friend?: No Do you have trouble with day-to-day activities such as bathing, preparing meals, shopping, managing finances, etc.?: No Are you currently unemployed and looking for a job?: No Are you interested in more education?: No Please select the resources that you would like help with: None Currently or been in a relationship where the following occur: No concerns reported THRIVE Score: 0 IVY-7 AMB Questionnaire IVY-7 Date IVY - 7 assessed: 10/23/23 Source: Developed by Drs. William Salmeron, Anupama Mayo, Kboy Mccray and colleagues, with an educational jayce from [employer]. Review of Systems Const All systems reviewed & are unremarkable except as noted in HPI and below Physical exam (Primary Care) Tobacco/Smoking Status: Tobacco use Status Tobacco use date assessed 01/02/25 01/02/25 14:21 Patient Tobacco Use Status Former Tobacco user 01/02/25 14:21 Tobacco use type Cigarette 01/02/25 14:21 e-Cigarette/Vaping Use Never Used 01/02/25 14:21 PHQ-9: PHQ-9 Score PHQ-9: Total score 0 01/02/25 14:45 Depression Screening Interpretation: Negative Thrive Assessment: Date of Thrive Assessment Date Thrive assessed 01/02/25 01/02/25 14:21 Currently or been in a relationship where the following occur: No concerns reported Const Other: PHYSICAL EXAM NOT PERFORMED DUE TO THE NATURE OF THE APPOINTMENT BEING TELEMEDICINE. Telehealth Telehealth Telehealth Platform: [facility] Location of provider rendering services: practice address Location of patient: address on file Patient Identification confirmed using: Name, : Yes Telehealth method: video Patient verbally consented to treatment: Yes Patient verbally consented to billing insurance company: Yes Patient informed of any privacy concerns related to visit: Yes Coding Level of Care Code Est Pt Level 4 (16089) Diagnoses Status post below-knee amputation of left lower extremity Z89.512 Laterality: left Time Spent (min) 20 Assessment & Plan Assessment & Plan (1) S/P below knee amputation: Code(s): Z89.519 - Acquired absence of unspecified leg below knee Category: Surgical Qualifiers: Laterality: left Qualified Code(s): Z89.512 - Acquired absence of left leg below knee Plan: Managed by Vascular team Message PCP to arrange wound care clinic for the patient.
== END 2025-01-02 14:54 | disposition home or self-care (01) ==
LOC: HO.HMCH 14:16
PROVIDERS: Visit Provider Nurse Practitioner Family
DX: Z89.512 Acquired absence of left leg below knee (principal)

== ENCOUNTER → 2025-01-02 14:16 | Outpatient (BNVA) | payer MEDICARE, SELFPAY | PROVIDERS: Visit Provider Nurse Practitioner Family | DX: Z89.512 Acquired absence of left leg below knee (principal) | CPT/HCPCS: 99212 ==

== ENCOUNTER → 2025-01-15 23:59 | Outpatient (BNV) | payer MEDICARE, SELFPAY | DX: T87.81 Dehiscence of amputation stump (principal); L89.313 Pressure ulcer of right buttock, stage 3; E11.51 Type 2 diabetes mellitus with diabetic peripheral angiopathy without gangrene | CPT/HCPCS: G0180 ==

== ENCOUNTER 2025-04-03 09:36 | Outpatient (AMB) | payer MEDICARE, SELFPAY ==
--- NOTE | 2025-04-03 09:41 | A.OFFPC_ITS ---
Vital Signs 04/03/25 09:43 Height 5 ft 7.72 in BMI Reason not done Patient refused/unable BP 120/68 Blood Pressure Location Lt brachial Position Sitting Pulse 84 Pulse Source Pulse Oximeter Temp 97.3 F Temp Source Temporal Artery Scan Pulse Oximetry (%) 96 Oxygen Delivery Method Room Air Intake Visit Reasons: CARLEE Dr Chand - see comments Intake Note: Patient is here today for CARLEE from Dr Chand Electrical Equipment Tester Required: No Soa Integration Architect: Not Required per policy Accompanied by: Self / Same As Patient Allergies levofloxacin (Levaquin) Allergy (Unknown, Verified 04/03/25 10:05) hives Medication List - Last Reconciled 04/03/25 by Alanna John PA-C blood sugar diagnostic Onetouch Ultra lancets use to check once a day blood sugar diagnostic (OneTouch Ultra Test strips) Test 3 times daily blood-glucose meter (OneTouch Ultra2 Meter) Test 3 times Daily chair, wheel (Wheel chair) As directed chair, wheel (Wheel chair) As directed clopidogrel 75 mg PO DAILY doxycycline hyclate 100 mg PO BID empagliflozin (Jardiance) 20 mg (2 x 10 mg) PO QAM glipizide ER 5 mg PO DAILY hydrocodone-acetaminophen 5-325 mg 1 tab PO Q4H PRN 7 days insulin glargine units subcut ketoconazole 2% 1 appl topical BID lisinopril-hydrochlorothiazide 10-12.5 mg 1 tab PO DAILY metformin 1,000 mg (2 x 500 mg) PO BID 90 days nystatin 1 appl topical TID 90 days paroxetine HCl 30 mg PO DAILY pen needle, diabetic As directed with insulin daily tamsulosin 0.4 mg PO DAILY trazodone 50 mg PO BEDTIME PRN Tobacco use date assessed: 04/03/25 Fall risk assessment: No Falls in past year Last assessed Fall Risk: 04/03/25 Dental Screening Dental Screen Date: 01/02/[address] Chand - see comments HPI Details 69-year-old male with past medical histo ry of hyperlipidemia, diabetes mellitus, obesity, depression, hypertension and [id number] amputation last seen 12/2024 by nurse practitioner coming in for CARLEE. Patient was seen via telehealth at that time after d/c from Rehab s/p left BKA. Presenting for management of diabetes mellitus and follow-up on a wound on the amputated limb. Managed by an flatwork feeder with good control, A1c at 6.3. Uses Lantus insulin, adjusting dose based on blood sugar levels, typically 40-50 units. Underwent foot amputation in October due to poor circulation. Follows up with vascular surgeon biweekly for a new wound on the amputated limb. Wound Developed a few weeks ago, receiving wound care thrice weekly, packed with Aquasil, on doxycycline for infection. Depression is Managed with paroxetine, well-controlled. [facility] Medical History HTN (hypertension) Obesity Adult general medical exam Screening for prostate cancer Peripheral vascular disease Diabetes mellitus Hyperlipidemia Surgical History S/P below knee amputation History of colonoscopy History of angioplasty of vein Amputated right leg History of foot surgery Family History Father No problems noted. Mother No problems noted. Social History Housing: Apartment Alcohol intake: never Patient Tobacco Use Status: Former Tobacco user Tobacco use type: Cigarette e-Cigarette/Vaping Use: Never Used Second Hand Smoke Exposure: Yes service: No Current occupational status: retired and disabled Cognitive needs: Yes (Wheelchair) Hearing needs: No Vision needs: Yes Questionnaire PHQ-9 Over the last 2 weeks, how often have you been bothered by any of the following problems? 1. Little interest or pleasure in doing things: not at all 2. Feeling down, depressed, or hopeless: not at all 3. Trouble falling or staying asleep, or sleeping too much: not at all 4. Feeling tired or having little energy: not at all 5. Poor appetite or overeating: not at all 6. Feeling bad about yourself - or that you are a failure or have let yourself or your family down: not at all 7. Trouble concentrating on things, such as reading the newspaper or watching television: not at all 8. Moving or speaking so slowly that other people could have noticed. Or the opposite - being so fidgety or restless that you have been moving around a lot more than usual: not at all 9. Thoughts that you would be better off or of hurting yourself in some way: not at all Total score: 0 Depression Screening Interpretation: Negative Depression Screening Done: Yes 93217 - PHQ-9 Billing: Yes Source: Developed by Drs. William Salmeron, Anupama Mayo, Koby Mccray and colleagues, with an educational jayce from [employer]. Thrive Questionnaire Date Thrive assessed: 01/02/25 I am a: Patient What is your living situation today?: I have a steady place to live Within the past 12 months, did the food you bought not last and you didn't have the money to get more?: Never true Within the past 12 months, did you worry whether your food would run out before you got money to buy more?: Never true Do you have trouble paying for medicines?: No Do you have trouble getting transportation to medical appointments?: No Do you have trouble paying your heating and electricity bill?: No Do you have trouble taking care of your child, family member or friend?: No Do you have trouble with day-to-day activities such as bathing, preparing meals, shopping, managing finances, etc.?: Yes Are you currently unemployed and looking for a job?: Yes Are you interested in more education?: No Please select the resources that you would like help with: None Currently or been in a relationship where the following occur: No concerns reported THRIVE Score: 0 AUDIT C Alcohol Use Questionnaire (AUDIT-C) 1. How often do you have a drink containing alcohol?: Never Total Score: 0 IVY-7 AMB Questionnaire IVY-7 Date IVY - 7 assessed: 04/03/25 Feeling nervous, anxious, or on edge: 0 = Not at all Not being able to stop or control worryin = Not at all Worrying too much about different things: 0 = Not at all Trouble relaxin = Not at all Being so restless that it is hard to sit still: 0 = Not at all Becoming easily annoyed or irritable: 0 = Not at all Feeling afraid as if something awful might happen: 0 = Not at all Total IVY-7 score (0-4 normal; 5-9 mild; 10-14 moderate; 15-21 severe): 0 Source: Developed by Drs. William Salmeron, Anupama Mayo, Koby Mccray and colleagues, with an educational jayce from [employer]. IVY-7 Assessment Billing IVY-7 Assessment Tool: IVY-7 Assessment 81000 Review of Systems Const Denies body aches, Denies chills, Denies fever(s), Denies headache(s) and Denies poor appetite Eyes Reports no additional complaints ENT Denies dysphagia, Denies dizziness, Denies headache(s) and Denies odynophagia Card Denies chest pain, Denies syncope, Denies edema, Denies irregular heart rhythm, Denies lightheadedness and Denies dyspnea Resp Denies cough and Denies dyspnea GI Denies abdominal pain, Denies constipation, Denies dysphagia, Denies diarrhea, Denies nausea, Denies odynophagia and Denies vomiting Reports no additional complaints Musc Reports no additional complaints Skin/Breast Reports system reviewed and no additional complaints, except as documented Neuro Denies dizziness, Denies syncope and Denies headache(s) Psych Reports no additional complaints Physical exam (Primary Care) Vital Signs: Last Vital Signs Temp 97.3 F 04/03/25 09:43 Pulse 84 04/03/25 09:43 BP 120/68 04/03/25 09:43 Pulse Ox 96 04/03/25 09:43 Oxygen Delivery Method Room Air 04/03/25 09:43 Tobacco/Smoking Status: Tobacco use Status Tobacco use date assessed 04/03/25 04/03/25 09:52 Patient Tobacco Use Status Former Tobacco user 04/03/25 09:52 Tobacco use type Cigarette 04/03/25 09:52 e-Cigarette/Vaping Use Never Used 04/03/25 09:52 PHQ-9: PHQ-9 Score PHQ-9: Total score 0 04/03/25 10:17 Depression Screening Interpretation: Negative Thrive Assessment: Date of Thrive Assessment Date Thrive assessed 01/02/25 04/03/25 09:52 Currently or been in a relationship where the following occur: No concerns reported Const General: cooperative, healthy appearing, comfortable and no acute distress Orientation/consciousness: patient oriented x3 HENMT Head: Yes normocephalic Ears: hearing grossly normal bilaterally General nose exam: Normal external nose present Eyes General: appearance normal, both eyes and all related structures Conjunctivae: conjunctivae normal Neck Neck: Yes full ROM and Yes no lymphadenopathy Resp Effort & Inspection: normal respiratory effort Auscultation: clear to auscultation bilaterally, no crackles, no rales, no rhonchi and no wheezes Cardio Rate: regular rate Rhythm: regular rhythm Skin General skin exam: no rashes or lesions noted Neuro General: patient oriented x3 Gait exam (Neuro): Normal gait present Extrem Other: Bilateral lower extremity amputations General: Yes normal to inspection, Yes full ROM and No edema Psych Affect: normal affect Attitude: cooperative Insight: Good insight present (Psych) Judgement: Good judgement present (Psych) Results AMB Hemoglobin A1c AMB Hemoglobin A1c 6.3 % Last Edit by PEÑA Saba on 04/03/25 10:03 Results Reviewed Results Reviewed: Laboratory Last Values Hgb A1c (Clinic) 6.3 % (4.0-6.0) H 04/03/25 09:41 Coding Level of Care Code Est Pt Level 3 (00830) Diagnoses Hypertension, unspecified type I10 Hypertension type: unspecified Depression, unspecified depression type F32.9 Depression Type: unspecified Hyperlipidemia, unspecified hyperlipidemia type E78.5 Hyperlipidemia type: unspecified Diabetes mellitus E11.9 Status post below-knee amputation of left lower extremity Z89.512 Laterality: left Open wound T14.8XXA Additional Codes IVY-7 Assessment Billing - IVY-7 Assessment Tool: IVY-7 Assessment 86008 ([id number]) PHQ-9 - 19758 - PHQ-9 Billing: Yes ([id number]) Assessment & Plan Assessment & Plan (1) Hypertension: Code(s): I10 - Essential (primary) hypertension Category: Medical Qualifiers: Hypertension type: unspecified Qualified Code(s): I10 - Essential (primary) hypertension Plan: Continue on current blood pressure medication. Avoid salt intake and encourage healthy diet and regular exercise. (2) Depression: Code(s): F32.9 - Major depressive disorder, single episode, unspecified Category: Medical Qualifiers: Depression Type: unspecified Qualified Code(s): F32.9 - Major depressive disorder, single episode, unspecified Plan: Well managed on paroxetine. (3) Hyperlipidemia: Code(s): E78.5 - Hyperlipidemia, unspecified Category: Medical Qualifiers: Hyperlipidemia type: unspecified Qualified Code(s): E78.5 - Hyperlipidemia, unspecified Plan: Avoid foods that are high in cholesterol such as red meat, fried foods, eggs and baked goods. Triglyceride goal of less than 150 and LDL goal of less than 100. Patient was taken off of statin by Dr. Chand due to diarrhea. Updated labs ordered (4) Diabetes mellitus: Code(s): E11.9 - Type 2 diabetes mellitus without complications Category: Medical Plan: Decrease the amount of carbohydrates such as pasta, bread, rice, and potatoes and limit the amount of sweets. Although fruits are generally healthy they should be eaten in moderation as they are still high in sugar. Hemoglobin A1c goal of less than 7%. His A1c in the clinic today is 6.3% continue on current medication regimen and continue to follow with endocrinology in [place]. (5) S/P below knee amputation: Code(s): Z89.519 - Acquired absence of unspecified leg below knee Category: Medical Qualifiers: Laterality: left Qualified Code(s): Z89.512 - Acquired absence of left leg below knee Plan: Continue to follow with vascular surgery in [place]. (6) Open wound: Code(s): T14.8XXA - Other injury of unspecified body region, initial encounter Category: Medical Plan: Patient has an open wound on the left stump that is being managed by vascular surgery and [facility]. He has an appointment later today with [facility] and would like to leave the dressing in place until being seen by them. He agrees to take a picture of the wound and update our office. He is on doxycycline by his vascular surgeon and is seeing them every 2 weeks. Continue to follow with [facility] and vascular surgery. Plan The patient will continue diabetes management with regular monitoring of blood sugar levels and A1c testing, maintaining the current insulin regimen. The wound on the amputated limb will be monitored closely with regular dressing changes and follow-up with the vascular surgeon every two weeks. The patient is on doxycycline for infection management and will continue this course as prescribed. Depression management with paroxetine will be maintained as it is effectively controlling symptoms. Cholesterol levels will be re-evaluated with a plan to repeat testing biannually, and adjustments to medication will be c onsidered based on results. Follow-up appointments will be scheduled as needed, with a telehealth visit planned in three months to review blood work and overall progress. This note was constructed using voice recognition software. While every effort has been made to ensure accuracy and data technical lead, still areas may have been included sometimes these areas may affect the content or meeting of the given symptoms. Total time spent caring for the patient today was 30 minutes. This includes time spent before the visit reviewing the chart, time spent during the visit, and time spent after the visit and documentation. Patient was informed and verbally consented to the use of an ambient scribe for clinic note documentation during this visit. Orders: Orders AMB Hemoglobin A1c Today E11.9 - Type 2 diabetes mellitus without complications Lipid Panel Today E78.00 - Pure hypercholesterolemia, unspecified Comprehensive Met. Panel Today E11.9 - Type 2 diabetes mellitus without complications, I10 - Essential (primary) hypertension, Z00.00 - Encounter for general adult medical examination without abnormal findings Complete Blood Count Auto Diff Today E11.9 - Type 2 diabetes mellitus without complications, I10 - Essential (primary) hypertension, Z00.00 - Encounter for general adult medical examination without abnormal findings TSH reflex Free T4 Today E11.9 - Type 2 diabetes mellitus without complications, I10 - Essential (primary) hypertension, Z00.00 - Encounter for general adult medical examination without abnormal findings Vitamin B12 and Folate Today E11.9 - Type 2 diabetes mellitus without complications, I10 - Essential (primary) hypertension, Z13.21 - Encounter for screening for nutritional disorder Medications: Changed From insulin glargine subcut To insulin glargine 40 units subcut Discontinued hydrocodone-acetaminophen 5-325 mg Partial Fill upon patient request. Discontinued Reason: Patient no longer taking 1 tab PO Q4H 7 days PRN 14 tabs 0RF pain
[2025-04-03 09:43] VITALS: BP 120/68; PULSE 84; TEMP 36.3; O2SAT 96
--- OUTSIDE RECORDS SUMMARY | 2025-04-03 10:05 | XMS_ITS | Patient Health Record ---
Author Organization [facility] Address [address] [place] [address] Care Team Providers Care Embedded Linux Developer Name Role Phone Mannie NAVA, Abilio Primary Care Provider Sreekanth Galvan Unavailable [phone] Allergies Allergen (clinical drug ingredient) Drug/Non Drug Allergy documented on EMR Reaction Allergy Type Onset Date Status Levaquin swelling Drug Allergy Active Reason For Referral No Information Medications Medication SIG (Take, Route, Frequency, Duration) Notes Start Date End Date Status Neosporin Active metFORMIN HCl 500 mg twice daily Active Jardiance 10 MG 1 tablet Orally Once a day Active Lantus 40 units 0.1 ml Subcutaneous Once a day; Duration: 30 day(s) Not-Taking Ketoconazole Active Tylenol 325 MG 1 tablet as needed Orally every 4 hrs Not-Taking Levemir FlexPen Acti ve Paxil 30 MG 1 tablet in the morn ing Orally Once a day Not-Taking Lisinopril-hydroCHLOROth iazide 10-12.5 MG 1 tablet Orally Once a day; Duration: 30 day(s) Active Dakins (1/4 strength) Not-Taking Pravastatin Sodium 40 mg Not-Taking Doxycycline Hyclate 100 MG TAKE ONE TABLET BY MOUTH TWICE A DAY WITH FOOD Oral; Duration: 14 Not-Taking Clopidogrel Bisulfate 75 MG 1 tablet Orally Once a day Active Amitriptyline HCl 25 MG TAKE ONE TABLET( S) AT BEDTIME; Duration: 30 Not-Taking glipiZIDE 5 MG 1 tablet 30 minutes before breakfast Orally Once a day Active clonazePAM 0.5 mg No t-Taking Cephalexin 500 MG 1 capsule Orally puneet ry 12 hrs; Duration: 10 day(s) Not-Taking Torsemide 20 MG 1 tablet Once a day Not-Taking Cephalexin 500 MG 1 capsule Orally puneet ry 12 hrs; Duration: 10 day(s) Not-Taking Aspirin 81 mg Not-Ta juliano Atorvastatin Calcium 80 MG 1 tablet Orally Once a day Not-Taking Tresiba FlexTouch 100 UNIT/ML INJECT 100 UNITS UNDER THE SKIN EVERY EVENING Subcutaneous; Duration: 30 Not-Taking Compression Stockings 20-30mm Hg as directed . Dx: intractable edema bilateral legs; Duration: . 02/18/2013 Active Plavix 75 MG 1 tablet Orally Once a day Not-Taking BD Pen Needle Zeinab U/F 32G X 4 MM USE TO INJECT INSULIN ONCE DAILY; Duration: 30 Not-Juan ing Trulicity Not-Taking Tamsulosin HCl 0.4 MG 1 capsule Orally O nce a day; Duration: 30 day(s) Active Trazodone & Diet Manage Prod 50 mg Active Vitamin B12 Active zzzExtra Depth Orthopedic Shoes (1 Pair) with Customized Heat Molded Multidensity Innersoles (3 Pair) . . . Dx: IDDM (E10.9), Hammertoe Foot Deformity (M20.41,M20.42), Preulcerative Skin Lesion(s) (L85.1); Duration: . 11/30/2015 Active PARoxetine HCl 30 mg Active Immunizations Vaccine Route Administration Date Status Comme nts Influenza Unknown 12/20/2015 Administered Influenza Unknown 08/24/2016 Administered Influenza Unknown 07/08/2018 Administered Influenza Unknown 02/17/2019 Administered Influenza Unknown 08/05/2019 Administered Pneumococcal Unknown 12/20/2015 Administered Social History Tobacco Use: Social History Observation Description Date Details (start date - stop date) Former Smoker NA - NA Tobacco Use/Smoking Question Answer Notes Are you a: former smoker When did you stop smoking? 15 yrs yrs ago Alcohol Screen Question Answer Notes Did you have a drink containing alcohol in the p ast year? No Points 0 Interpretation Negative Tobacco use other than smoking: Question Answer Notes Are you an other tobacco user? No Section Notes: A1C 07/23/15 7.8 Flu Shot 07/23/15 Eye Exam 04/2015 A1C 07/23/15 7.8 Flu Shot 07/23/15 Eye Exam 04/2015 Problems Problem Type SNOMED Code ICD Code Onset Dates Problem Status W/U Status Risk Notes Problem Information temporarily unavailable Type 2 diabetes mellitus with diabetic polyneuropathy (E11.42) Active confirmed Problem Information temporarily unavailable Unspecified atherosclerosis of telida arteries of extremities, bilateral legs (I70.203) Active confirmed Problem Information temporarily unavailable Non-pressure chronic ulcer of other part of left foot with fat layer exposed (L97.522) Active confirmed Problem Information temporarily unavailable Primary osteoarthritis, left ankle and foot (M19.072) Active confirmed Problem Information temporarily unavailable Type 1 diabetes mellitus with diabetic polyneuropathy (E10.42) Active confirmed Problem Information temporarily unavailable Unspecified atherosclerosis of telida arteries of extremities, bilateral legs (I70.203) Active confirmed Problem Information temporarily unavailable Non-pressure chronic ulcer of other part of left foot limited to breakdown of skin (L97.521) Active confirmed Problem Information temporarily unavailable Other hammer toe(s) (acquired), left foot (M20.42) Active confirmed Problem Information temporarily unavailable Osteomyelitis of left foot, unspecified type (M86.9) Active confirmed Plan Of Treatment Pending Test Test Name Order Date Hemoglobin A1c 10/28/2018 X ray : Foot, left 3V 01/22/2024 91047-NPMUFTY NAIL, 6 OR MORE 04/07/2016 82081-DTKKVAP NAIL, 6 OR MORE 06/06/2016 22469-TVVHOUT NAIL, 6 OR MORE 08/11/2016 42789-UVOOOSG NAIL, 6 OR MORE 10/10/2016 48169-XDZXAQH NAIL, 6 OR MORE 12/12/2016 26229-NUHJSGE NAIL, 6 OR MORE 09/19/2011 54387-YQPOOUU NAIL, 6 OR MORE 10/20/2011 12809-FOLHEMM NAIL, 6 OR MORE 11/24/2011 77415-CEHUMOZ NAIL, 6 OR MORE 01/19/2012 51204-TTBYONN NAIL, 6 OR MORE 03/29/2012 93992-UUFWLVL NAIL, 6 OR MORE 06/04/2012 21929-FXEQAML NAIL, 6 OR MORE 08/06/2012 74110-XDBTJNO NAIL, 6 OR MORE 10/15/2012 72792-GKHMEUR NAIL, 6 OR MORE 12/17/2012 68542-DRYLKZE NAIL, 6 OR MORE 02/18/2013 29101-MEJEWAE NAIL, 6 OR MORE 05/09/2013 06338-ZRWUEUF NAIL, 6 OR MORE 07/11/2013 44379-LPGJSYL NAIL, 6 OR MORE 09/30/2013 70806-NXXYARZ NAIL, 6 OR MORE 12/09/2013 48861-RJZJQRP NAIL, 6 OR MORE 02/17/2014 47993-RCAQLEJ NAIL, 6 OR MORE 04/24/2014 38789-PIBAOIS NAIL, 6 OR MORE 06/30/2014 51093-VKWCYZF NAIL, 6 OR MORE 09/01/2014 45260-DOSTQIE NAIL, 6 OR MORE 12/11/2014 28703-BIUCIVN NAIL, 6 OR MORE 02/23/2015 42918-EPSIJNJ NAIL, 6 OR MORE 04/27/2015 45624-HYNPGZB NAIL, 6 OR MORE 07/06/2015 78559-BOGDQGW NAIL, 6 OR MORE 09/28/2015 24031-IUZNFNY NAIL, 6 OR MORE 11/30/2015 88604-EHUOTTC NAIL, 6 OR MORE 02/01/2016 35233-BSPHAJK NAIL, 1-5 11/28/2018 21923-XSGQYEE NAIL, 1-5 03/06/2019 80493-Awuywdck Plate 03/03/2016 45354- Debride <25 sq cm 03/03/2016 31224- Debride <25 sq cm 03/17/2016 63885- Debride <25 sq cm 03/09/2015 88845- Debride <25 sq cm 02/15/2016 09049- Debride <25 sq cm 11/21/2013 96671- Debride <25 sq cm 12/09/2013 71620- Debride <25 sq cm 09/30/2013 50146- Debride <25 sq cm 07/11/2013 34735- Debride <25 sq cm 05/09/2013 15901- Debride <25 sq cm 10/20/2011 29835- Debride <25 sq cm 09/19/2011 50006- Debride <25 sq cm 07/18/2011 75355- Debride <25 sq cm 08/25/2011 03762- Debride <25 sq cm 09/12/2016 09769- Debride <25 sq cm 01/22/2024 65501- Debride <25 sq cm 05/09/2016 94550- Debride <25 sq cm 06/06/2016 19381- Debride <25 sq cm 04/07/2016 52313-KRAETMD SKIN/TISSUE 08/29/2016 02743-XQPVKPA SKIN/TISSUE 08/11/2016 61329-HGWMIVI SKIN/TISSUE 12/12/2016 94972-KNPOTDH SKIN/TISSUE 11/07/2016 14989-FAUGRGC SKIN/TISSUE 11/21/2016 50117-BAXNOJF SKIN/TISSUE 01/22/2024 98109-YZCNCTO SKIN/TISSUE 10/10/2019 00532-FMDMDRR SKIN/TISSUE 08/20/2013 82234-SIFIZES SKIN/TISSUE 11/11/2013 17948-BDKPGQZ SKIN/TISSUE 11/21/2013 26073-MQEYKMD SKIN/TISSUE 02/23/2015 39484 I&D ABSCESS- SIMPLE,SINGLE 016 61430 I&D ABSCESS- SIMPLE,SINGLE 011 17140-DFDD SKIN LESIONS, OVER 4 09/30/20 13 97179-HXGT SKIN LESIONS, OVER 4 05/09/20 13 71259-XFGG SKIN LESIONS, OVER 4 07/11/20 13 42231-MPAG SKIN LESIONS, OVER 4 02/19/20 13 34348-HUPE SKIN LESIONS, OVER 4 12/18/19 13 14371-OCAO SKIN LESIONS, OVER 4 10/15/19 13 77399-UTQL SKIN LESIONS, OVER 4 08/06/20 12 95415-VKDI SKIN LESIONS, OVER 4 09/19/20 11 43004-HMNR SKIN LESIONS, OVER 4 10/20/19 12 94364-WBWQ SKIN LESIONS, OVER 4 06/04/20 12 91371-FPMY SKIN LESIONS, OVER 4 03/29/20 12 19387-NKIZ SKIN LESIONS, OVER 4 01/19/20 12 03582-HURZ SKIN LESIONS, OVER 4 11/24/19 12 29791-YNHQ SKIN LESIONS, OVER 4 02/01/20 16 76785-OEZD SKIN LESIONS, OVER 4 11/30/19 16 07211-MIWS SKIN LESIONS, OVER 4 04/27/20 15 46906-YUPB SKIN LESIONS, OVER 4 09/28/20 15 06964-ZRBQ SKIN LESIONS, OVER 4 07/06/20 15 93130-UYXV SKIN LESIONS, OVER 4 12/10/19 14 33147-TXJP SKIN LESIONS, OVER 4 04/24/20 14 37619-HSJA SKIN LESIONS, OVER 4 02/18/20 14 13278-FEOR SKIN LESIONS, OVER 4 02/24/20 15 25799-KGSV SKIN LESIONS, OVER 4 12/12/19 15 94170-THXP SKIN LESIONS, OVER 4 09/01/20 14 96346-HZEW SKIN LESIONS, OVER 4 06/30/20 14 90548-ETOZ SKIN LESIONS, OVER 4 01/22/20 24 45278-WKQR SKIN LESIONS, OVER 4 10/10/19 17 59527-QLAS SKIN LESIONS, OVER 4 12/13/19 17 21666-ETLI SKIN LESIONS, OVER 4 08/11/20 16 27867-BCCG SKIN LESIONS, OVER 4 04/07/20 16 46996-LPDE SKIN LESIONS, OVER 4 06/06/20 16 74352-TUHX SKIN LESIONS, 2 TO 4 11/28/19 19 96244-KRUJ SKIN LESIONS, 2 TO 4 03/06/20 19 03698-IDNIJBSY OF HEMATOMA/FLUID 019 67373-JCOCAYVO OF HEMATOMA/FLUID 011 Insurance Providers Payer Name Payer Address Payer Phone Subscriber Number Group Number Insured Name Patient Relationship to Insured Coverage Start Date Coverage End Date [employer] Medicare [id number] [address] [address] [place] [address] [id number] Fco Burns Self - patient is the insured Medical (General) History Medical History History ICD Code diabetes mellitus hypertension measles mumps neuropathy Osteomylitis Peripheral vascular disease Cataracts covid-19 Poor circulation ulcer Surgical History Surgery Date(Month/Year) foot surgery stent insertion right leg 09/16/12 angioplasty 09/06/15 Vein blockage on RT [facility] 08/24/20 16 veins opened to check for bl ood flow, no blood flow, tried to save leg and then amputated it below knee. 12/2016 sx to clean out amputation knee and above - Right 7 Stent removed from rt leg 10/2017 incision and drainage 10/16/17 great toe, amputation Hospitalization History Reason Date(Month/Year) [facility] -03/2017 [facility] -01/2017 [facility] angioplasty, Dr Xie 09/06/15 [facility]- stent insertion right le g 09/16/12
== END 2025-04-03 10:27 | disposition home or self-care (01) ==
LOC: HO.HMCH 09:36
DX: I10 Essential (primary) hypertension (principal); F32.9 Major depressive disorder, single episode, unspecified; E11.69 Type 2 diabetes mellitus with other specified complication; Z89.512 Acquired absence of left leg below knee; E78.5 Hyperlipidemia, unspecified; T14.8XXA Other injury of unspecified body region, initial encounter

== ENCOUNTER → 2025-04-03 09:36 | Outpatient (BNVA) | payer MEDICARE, SELFPAY | DX: I10 Essential (primary) hypertension (principal); F32.9 Major depressive disorder, single episode, unspecified; E78.5 Hyperlipidemia, unspecified; E11.9 Type 2 diabetes mellitus without complications; Z89.512 Acquired absence of left leg below knee | CPT/HCPCS: 83036; 96127; 99212 ==

== ENCOUNTER → 2025-06-17 23:59 | Outpatient (BNV) | payer MEDICARE, SELFPAY | DX: E11.51 Type 2 diabetes mellitus with diabetic peripheral angiopathy without gangrene (principal); E11.65 Type 2 diabetes mellitus with hyperglycemia; N39.0 Urinary tract infection, site not specified | CPT/HCPCS: G0180 ==

== ENCOUNTER 2025-07-07 09:41 | Outpatient (AMB) | payer MEDICARE, SELFPAY ==
--- NOTE | 2025-07-07 09:41 | MHC.PC.OV ---
Intake Visit Reasons: f/u [facility] telehealth Intake Note: Patient is here to follow up on [facility]. Glost Kiln Placer Required: No Computer Hardware Technician: Not Required per policy Accompanied by: Self / Same As Patient Allergies levofloxacin (Levaquin) Allergy (Unknown, Verified 07/07/25 09:46) hives Medication List - Last Reconciled 07/07/25 by Alanna John PA-C blood sugar diagnostic Onetouch Ultra lancets use to check once a day blood sugar diagnostic (OneTouch Ultra Test strips) Test 3 times daily blood-glucose meter (OneTouch Ultra2 Meter) Test 3 times Daily chair, wheel (Wheel chair) As directed chair, wheel (Wheel chair) As directed clopidogrel 75 mg PO DAILY empagliflozin (Jardiance) 25 mg PO DAILY glipizide ER 5 mg PO DAILY insulin glargine 40 units subcut QPM ketoconazole 2% 1 appl topical BID lisinopril-hydrochlorothiazide 10-12.5 mg 1 tab PO DAILY metformin 1,000 mg (2 x 500 mg) PO BID 90 days paroxetine HCl 30 mg PO DAILY pen needle, diabetic As directed with insulin daily simvastatin 20 mg PO BEDTIME tamsulosin 0.4 mg PO DAILY trazodone 50 mg PO BEDTIME PRN Tobacco use date assessed: 04/03/25 Fall risk assessment: No Falls in past year Last assessed Fall Risk: 07/07/25 Dental Screening Dental Screen Date: 01/02/25 HPI f/u [facility] telehealth HPI Details 69-year-old male with past medical history of hyperlipidemia, diabetes mellitus, obesity, depression, hypertension and yhdag-ueg-bucw amputation last seen 04/01 presenting via telehealth for follow up. In review of the notes, patient was seen by vascular surgery 06/10/2025 advised to follow up on as-needed basis. Patient tells us today he missed his most recent appointment as he had recurrent cellulitis resulting in admission to the hospital and subsequent rehab facility. He is feeling generally well and has seen improvement in his overall strength since discharge from rehab. He was questioning if he should be on cholesterol medication as he was previously taken off of Simvastatin due to diarrhea. He has not yet completed his labs. [facility] Medical History HTN (hypertension) Obesity Adult general medical exam Screening for prostate cancer Peripheral vascular disease Diabetes mellitus Hyperlipidemia Surgical History S/P below knee amputation History of colonoscopy History of angioplasty of vein Amputated right leg History of foot surgery Family History Father No problems noted. Mother No problems noted. Social History Housing: Apartment Alcohol intake: never Patient Tobacco Use Status: Former Tobacco user Tobacco use type: Cigarette e-Cigarette/Vaping Use: Never Used Second Hand Smoke Exposure: Yes service: No Current occupational status: retired and disabled Cognitive needs: Yes (Wheelchair) Hearing needs: No Vision needs: Yes Questionnaire Thrive Questionnaire Date Thrive assessed: 01/02/25 IVY-7 AMB Questionnaire IVY-7 Date IVY - 7 assessed: 04/03/25 Source: Developed by Drs. William Salmeron, Anupama Mayo, Koby Mccray and colleagues, with an educational jayce from [employer]. Review of Systems Const Denies body aches, Denies chills, Denies fever(s), Denies headache(s) and Denies poor appetite Eyes Reports no additional complaints ENT Denies dizziness and Denies headache(s) Card Denies chest pain, Denies lightheadedness and Denies dyspnea Resp Denies dyspnea GI Denies abdominal pain, Denies diarrhea, Denies nausea and Denies vomiting Neuro Denies dizziness and Denies headache(s) Psych Reports no additional complaints Physical exam (Primary Care) Vital Signs: Vital signs and PE not performed today due to nature of telehealth visit. Tobacco/Smoking Status: Tobacco use Status Tobacco use date assessed 04/03/25 07/07/25 09:46 Patient Tobacco Use Status Former Tobacco user 07/07/25 09:46 Tobacco use type Cigarette 07/07/25 09:46 e-Cigarette/Vaping Use Never Used 07/07/25 09:46 Thrive Assessment: Date of Thrive Assessment Date Thrive assessed 01/02/25 07/07/25 09:46 Telehealth Telehealth Telehealth Platform: Telephone Location of provider rendering services: practice address Location of patient: address on file Patient Identification confirmed using: Name, : Yes Telehealth method: voice only Patient verbally consented to treatment: Yes Patient verbally consented to billing insurance company: Yes Patient informed of any privacy concerns related to visit: Yes Coding Level of Care Code Tele Est Pt Level 3 (84217) Diagnoses Hypertension, unspecified type I10 Hypertension type: unspecified Hyperlipidemia, unspecified hyperlipidemia type E78.5 Hyperlipidemia type: unspecified Diabetes mellitus E11.9 Status post below-knee amputation of left lower extremity Z89.512 Laterality: left Assessment & Plan Assessment & Plan (1) Hypertension: Code(s): I10 - Essential (primary) hypertension Category: Medical Qualifiers: Hypertension type: unspecified Qualified Code(s): I10 - Essential (primary) hypertension Plan: Continue on current blood pressure medication. Avoid salt intake and encourage healthy diet and regular exercise. Unable to determine blood pressure today but states his BP readings at home have been WNL (2) Hyperlipidemia: Code(s): E78.5 - Hyperlipidemia, unspecified Category: Medical Qualifiers: Hyperlipidemia type: unspecified Qualified Code(s): E78.5 - Hyperlipidemia, unspecified Plan: Avoid foods that are high in cholesterol such as red meat, fried foods, eggs and baked goods. Triglyceride goal of less than 150 and LDL goal of less than 100. Patient was taken off of statin by Dr. Chand due to diarrhea. Updated labs ordered and reminded about blood work. PLan to fax order to lab local to the patient. Given history of diabetes mellitus statin is indicated and low dose Atorvastatin was sent to pharmacy. (3) Diabetes mellitus: Code(s): E11.9 - Type 2 diabetes mellitus without complications Category: Medical Plan: Decrease the amount of carbohydrates such as pasta, bread, rice, and potatoes and limit the amount of sweets. Although fruits are generally healthy they should be eaten in moderation as they are still high in sugar. Hemoglobin A1c goal of less than 7%. His A1c in at [facility] last visit 6.3% continue on current medication regimen and continue to follow with endocrinology in [place]. (4) S/P below knee amputation: Code(s): Z89.519 - Acquired absence of unspecified leg below knee Category: Surgical Qualifiers: Laterality: left Qualified Code(s): Z89.512 - Acquired absence of left leg below knee Plan: Recently seen by [facility] vascular surgery 06/10/2025 he was provided with a stump mold machine operator and advised to follow up as needed Plan This note was constructed using voice recognition software. While every effort has been made to ensure accuracy and cable testers helper, still areas may have been included sometimes these areas may affect the content or meeting of the given symptoms. Total time spent caring for the patient today was 20 minutes. This includes time spent before the visit reviewing the chart, time spent during the visit, and time spent after the visit and documentation. Orders: Orders Hemoglobin A1c Today Alanna John PA-C E11.65 - Type 2 diabetes mellitus with hyperglycemia Medications: New atorvastatin (Lipitor) 10 mg PO BEDTIME 90 tabs 0RF Alanna John PA-C Changed From glipizide ER 5 mg PO DAILY 90 tabs 7RF E11.9 - Type 2 diabetes mellitus without complications To glipizide ER 1 TAB IN AM AND 2 TAB AT NIGHT 5 mg PO DAILY E11.9 - Type 2 diabetes mellitus without complications Abilio Chand MD
--- OUTSIDE RECORDS SUMMARY | 2025-07-07 10:33 | XMS_ITS | Encounter Summary ---
Author Organization [facility] Address [address] [place] [address] Care Team Providers Care Insurance Producer Name Role Phone Abilio Chand MD Primary Care Provider [phone] Encounter Details Date Type Department Care Team (Latest Contact Info) Description 10/29/2024 Lab Requisition [facility] - Main Lab [address] [facility] [place] [phone] Tremayne Collazo MD [address] [place] [id number] Peripheral vascular disease, unspecified (CMS/HCC V24); Type 2 diabetes mellitus with foot ulcer (CODE) (CMS/HCC V24, CMS/HCC V28); Vitamin D deficiency, unspecified; Type 2 diabetes mellitus with unspecified complications (CMS/HCC V24, CMS/HCC V28) Social History Tobacco Use Types Packs/Day Years Used Date Smoking Tobacco: Former Smokeless Tobacco: Never Alcohol Use Standard Drinks/Week Comments Yes 0 (1 standard drink = 0.6 oz pur e alcohol) Sex and Gender Information Value Date Recorded Sex Assigned at Not on file Legal Sex Male 9:01 AM EST Gender Identity Not on file Sexual Orientation Not on file documented as of this encounter Plan of Treatment Not on file documented as of this encounter Procedures Procedure Name Priority Date/Time Associated Diagnosis Comments LIPID PANEL WITH REFLEX TO DIRECT LDL Routine 10/29/2024 7:09 AM EST Peripheral vascular disease, unspecified (CMS/HCC) Type 2 diabetes mellitus with foot ulcer (CODE) (CMS/HCC) Vitamin D deficiency, unspecified Type 2 diabetes mellitus with unspecified complications (CMS/HCC) CBC WITH AUTO DIFFERENTIAL Routine 10/29/2024 7:09 AM EST Peripheral vascular disease, unspecified (CMS/HCC) Type 2 diabetes mellitus with foot ulcer (CODE) (CMS/HCC) Vitamin D deficiency, unspecified Type 2 diabetes mellitus with unspecified complications (CMS/HCC) VITAMIN D 25 HYDROXY Routine 10/29/2024 7:09 AM EST Peripheral vascular disease, unspecified (CMS/HCC) Type 2 diabetes mellitus with foot ulcer (CODE) (CMS/HCC) Vitamin D deficiency, unspecified Type 2 diabetes mellitus with unspecified complications (CMS/HCC) CBC AND DIFFERENTIAL Routine 10/29/2024 7:09 AM EST Peripheral vascular disease, unspecified (CMS/HCC) Type 2 diabetes mellitus with foot ulcer (CODE) (CMS/HCC) Vitamin D deficiency, unspecified Type 2 diabetes mellitus with unspecified complications (CMS/HCC) THYROID STIMULATING HORMONE Routine 10/29/2024 7:09 AM EST Peripheral vascular disease, unspecified (CMS/HCC) Type 2 diabetes mellitus with foot ulcer (CODE) (CMS/HCC) Vitamin D deficiency, unspecified Type 2 diabetes mellitus with unspecified complications (CMS/HCC) HEMOGLOBIN A1C Routine 10/29/2024 7:09 AM EST Peripheral vascular disease, unspecified (CMS/HCC) Type 2 diabetes mellitus with foot ulcer (CODE) (CMS/HCC) Vitamin D deficiency, unspecified Type 2 diabetes mellitus with unspecified complications (CMS/HCC) FOLATE Routine 10/29/2024 7:09 AM EST Peripheral vascular disease, unspecified (CMS/HCC) Type 2 diabetes mellitus with foot ulcer (CODE) (CMS/HCC) Vitamin D deficiency, unspecified Type 2 diabetes mellitus with unspecified complications (CMS/HCC) VITAMIN B12 Routine 10/29/2024 7:09 AM EST Peripheral vascular disease, unspecified (CMS/HCC) Type 2 diabetes mellitus with foot ulcer (CODE) (CMS/HCC) Vitamin D deficiency, unspecified Type 2 diabetes mellitus with unspecified complications (CMS/HCC) COMPREHENSIVE METABOLIC PANEL Routine 10/29/2024 7:09 AM EST Peripheral vascular disease, unspecified (CMS/HCC) Type 2 diabetes mellitus with foot ulcer (CODE) (CMS/HCC) Vitamin D deficiency, unspecified Type 2 diabetes mellitus with unspecified complications (CMS/HCC) documented in this encounter Results * (ABNORMAL) CBC auto differential (10/29/2024 7:09 AM EST) WBC 13.8(H) 4.8 - 10.8 K/mcL LAB HEMETOLOGY METHOD 10/29/2024 10:37 AM [facility] RBC 3.30(L) 4.50 - 5.50 M/mcL LAB HEMETOLOGY METHOD 10/29/2024 10:37 AM [facility] Hemoglobin 9.5(L) 13.5 - 17.5 g/dL LAB HEMETOLOGY METHOD 10/29/2024 10:37 AM [facility] Hematocrit 31.3(L) 42.0 - 54.0 % LAB HEMETOLOGY METHOD 10/29/2024 10:37 AM [facility] MCV 96.3 79.0 - 98.0 FL LAB HEMETOLOGY METHOD 10/29/2024 10:37 AM [facility] MCH 29.2 27.0 - 32.0 pcg LAB HEMETOLOGY METHOD 10/29/2024 10:37 AM [facility] MCHC 30.4(L) 32.0 - 37.0 g/dL LAB HEMETOLOGY METHOD 10/29/2024 10:37 AM [facility] RDW 14.1 11.0 - 15.0 % LAB HEMETOLOGY METHOD 10/29/2024 10:37 AM [facility] Platelets 479(H) 130 - 400 K/mcL LAB HEMETOLOGY METHOD 10/29/2024 10:37 AM [facility] MPV 9.1 7.0 - 11.0 FL LAB HEMETOLOGY METHOD 10/29/2024 10:37 AM [facility] NRBC 0.0 <1.0 % LAB HEMETOLOGY METHOD 10/29/2024 10:37 AM [facility] NRBC Absolute 0.00 <0.10 K/mcL LAB HEMETOLOGY METHOD 10/29/2024 10:37 AM [facility] Neutrophils Relative 93.0 % LAB HEMETOLOGY METHOD 10/29/2024 10:37 AM [facility] Lymphocytes Relative 1.0 % LAB HEMETOLOGY METHOD 10/29/2024 10:37 AM [facility] Monocytes Relative 4.5 % LAB HEMETOLOGY METHOD 10/29/2024 10:37 AM [facility] Eosinophils Relative 0.4 % LAB HEMETOLOGY METHOD 10/29/2024 10:37 AM [facility] Basophils Relative 0.1 % LAB HEMETOLOGY METHOD 10/29/2024 10:37 AM [facility] Immature Granulocytes Relative 1.0 % LAB HEMETOLOGY METHOD 10/29/2024 10:37 AM [facility] Neutrophils Absolute 12.81(H) 1.50 - 7.00 K/mcL LAB HEMETOLOGY METHOD 10/29/2024 10:37 AM [facility] Lymphocytes Absolute 0.14(L) 1.00 - 5.00 K/mcL LAB HEMETOLOGY METHOD 10/29/2024 10:37 AM [facility] Monocytes Absolute 0.62 0.20 - 1.00 K/mcL LAB HEMETOLOGY METHOD 10/29/2024 10:37 AM [facility] Eosinophils Absolute 0.06 0.00 - 0.50 K/mcL LAB HEMETOLOGY METHOD 10/29/2024 10:37 AM [facility] Basophils Absolute 0.02 0.00 - 0.20 K/mcL LAB HEMETOLOGY METHOD 10/29/2024 10:37 AM [facility] Immature Granulocytes Absolute 0.14(H) 0.00 - 0.03 K/[facility] LAB HEMETOLOGY METHOD 10/29/2024 10:37 AM [facility] Blood Venous blood specimen / Unknown Venipuncture / Unknown 10/29/2024 7:09 AM EST 10/29/2024 10:19 AM EST us Tremayne Collazo MD LAB BLOOD ORDERABLES Final Resu lt [facility] [address] [place] [address], [place] [phone] * (ABNORMAL) Lipid panel with reflex to direct LDL (10/29/2024 7:09 AM EST) Cholesterol 118 0 - 200 mg/dL LAB CHEMISTRY METHOD 10/29/2024 12:24 PM [facility] Triglycerides 81 0 - 150 mg/dL LAB CHEMISTRY METHOD 10/29/2024 12:24 PM [facility] HDL 31(L) >=40 mg/dL LAB CHEMISTRY METHOD 10/29/2024 12:24 PM [facility] LDL Calculated 71 0 - 100 mg/dL LAB CHEMISTRY METHOD 10/29/2024 12:24 PM [facility] VLDL Cholesterol Laron 16.2 mg/dL LAB CHEMISTRY METHOD 10/29/2024 12:24 PM [facility] Non HDL Chol. (LDL+VLDL) 87 <145 mg/dL LAB CHEMISTRY METHOD 10/29/2024 12:24 PM [facility] Chol/HDL Ratio 3.8 0.0 - 4.4 LAB CHEMISTRY METHOD 10/29/2024 12:24 PM [facility] Blood Venous blood specimen / Unknown Venipuncture / Unknown 10/29/2024 7:09 AM EST 10/29/2024 10:19 AM EST us Tremayne Collazo MD LAB BLOOD ORDERABLES Final Resu lt Performing Organization Address City/[facility]/ZIP Co de Phone Number [facility] [address] [place] [address], [place] [phone] * (ABNORMAL) Vitamin D 25 hydroxy (10/29/2024 7:09 AM EST) [facility] Vit D, 25-Hydroxy 16.2(L) 30.0 - 80.0 ng/mL LAB CHEMISTRY METHOD 10/29/2024 11:58 AM EST [facility] Blood Venous blood specimen / Unknown Venipuncture / Unknown 10/29/2024 7:09 AM EST 10/29/2024 10:19 AM EST us Tremayne Collazo MD LAB BLOOD ORDERABLES Final Resu lt Performing Organization Address City/[facility]/ZIP Co de Phone Number [facility] [address] [place] [address], [place] [phone] * Vitamin B12 (10/29/2024 7:09 AM EST) [facility] Vitamin B-12 860 250 - 900 pcg/mL LAB CHEMISTRY METHOD 10/29/2024 12:24 PM EST [facility] Blood Venous blood specimen / Unknown Venipuncture / Unknown 10/29/2024 7:09 AM EST 10/29/2024 10:19 AM EST us Tremayne Collazo MD LAB BLOOD ORDERABLES Final Resu lt Performing Organization Address City/[facility]/ZIP Co de Phone Number [facility] [address] [place] [address], [place] [phone] * Folate (10/29/2024 7:09 AM EST) [facility] Folate 3.2 2.8 - 17.0 ng/ml LAB CHEMISTRY METHOD 10/29/2024 12:24 PM EST [facility] Blood Venous blood specimen / Unknown Venipuncture / Unknown 10/29/2024 7:09 AM EST 10/29/2024 10:19 AM EST us Tremayne Collazo MD LAB BLOOD ORDERABLES Final Resu lt [facility] [address] [place] [address], [place] [phone] * Thyroid stimulating hormone (10/29/2024 7:09 AM EST) TSH 0.58 0.40 - 4.00 mcIU/mL LAB CHEMISTRY METHOD 10/29/2024 11:58 AM EST [facility] Blood Venous blood specimen / Unknown Venipuncture / Unknown 10/29/2024 7:09 AM EST 10/29/2024 10:19 AM EST us Tremayne Collazo MD LAB BLOOD ORDERABLES Final Resu lt [facility] [address] [place] [address], [place] [phone] * (ABNORMAL) Hemoglobin A1c (10/29/2024 7:09 AM EST) Hemoglobin A1C 6.9(H) <6.5 % LAB CHEMISTRY METHOD 10/29/2024 11:42 AM EST [facility] Mean Bld Glu Estim. 151 mg/dL LAB CHEMISTRY METHOD 10/29/2024 11:42 AM EST [facility] Blood Venous blood specimen / Unknown Venipuncture / Unknown 10/29/2024 7:09 AM EST 10/29/2024 10:19 AM EST us Tremayne Collazo MD LAB BLOOD ORDERABLES Final Resu lt [facility] [address] [place] [address], * (ABNORMAL) Comprehensive metabolic panel (10/29/2024 7:09 AM EST) Sodium 137 133 - 145 mmol/L LAB CHEMISTRY METHOD 10/29/2024 12:24 PM [facility] Potassium 5.2 3.5 - 5.5 mmol/L LAB CHEMISTRY METHOD 10/29/2024 12:24 PM [facility] Chloride 103 96 - 110 mmol/L LAB CHEMISTRY METHOD 10/29/2024 12:24 PM [facility] CO2 28 21 - 32 mmol/L LAB CHEMISTRY METHOD 10/29/2024 12:24 PM [facility] Anion Gap 6 3 - 11 LAB CHEMISTRY METHOD 10/29/2024 12:24 PM [facility] Glucose 164(H) 70 - 100 mg/dL LAB CHEMISTRY METHOD 10/29/2024 12:24 PM [facility] BUN 26(H) 5 - 25 mg/dL LAB CHEMISTRY METHOD 10/29/2024 12:24 PM [facility] Creatinine 0.77 0.70 - 1.30 mg/dL LAB CHEMISTRY METHOD 10/29/2024 12:24 PM [facility] eGFR 96 >=60 mL/min/1. 73m2 LAB CHEMISTRY METHOD 10/29/2024 12:24 PM [facility] Comment:Calculation based on the Chronic Kidney Disease Epidemiology Collaboration (CKD-EPI) equation refit without adjustment for race. BUN/Creatinine Ratio 33.8 LAB CHEMISTRY METHOD 10/29/2024 12:24 PM [facility] Calcium 8.0(L) 8.5 - 10.5 mg/dL LAB CHEMISTRY METHOD 10/29/2024 12:24 PM [facility] AST (SGOT) 15 10 - 42 unit/L LAB CHEMISTRY METHOD 10/29/2024 12:24 PM [facility] ALT (SGPT) 15 10 - 60 unit/L LAB CHEMISTRY METHOD 10/29/2024 12:24 PM [facility] Alkaline Phosphatase 56 42 - 121 unit/L LAB CHEMISTRY METHOD 10/29/2024 12:24 PM [facility] Total Protein 5.3(L) 6.0 - 8.0 g/dL LAB CHEMISTRY METHOD 10/29/2024 12:24 PM [facility] Albumin 2.0(L) 3.2 - 5.0 g/dL LAB CHEMISTRY METHOD 10/29/2024 12:24 PM [facility] Total Bilirubin 0.3 0.0 - 1.4 mg/dL LAB CHEMISTRY METHOD 10/29/2024 12:24 PM [facility] Blood Venous blood specimen / Unknown Venipuncture / Unknown 10/29/2024 7:09 AM EST 10/29/2024 10:19 AM EST us Tremayne Collazo MD LAB BLOOD ORDERABLES Final Resu lt [facility] [address] [place] [address], documented in this encounter Visit Diagnoses Diagnosis Peripheral vascular disease, unspecified (CMS/HCC V24) Peripheral vascular disease, unspecified Type 2 diabetes mellitus with foot ulcer (CODE) (CMS/HCC V24, CMS/HCC V28) Vitamin D deficiency, unspecified Type 2 diabetes mellitus with unspecified complications (CMS/HCC V24, CMS/HCC V28) documented in this encounter Care Teams Insurance Producer Relationship Specialty Start Date End Date Abilio Chand MD [address] [place] [address] PCP - General Internal Medicine 10/24/24 documented as of this encounter
--- OUTSIDE RECORDS SUMMARY | 2025-07-07 10:33 | XMS_ITS | Encounter Summary ---
Author Organization [facility] Address [address] [place] [address] Care Team Providers Care Welding Equipment Sales Representative Name Role Phone Abilio Chand MD Primary Care Provider [phone] Encounter Details Date Type Department Care Team (Latest Contact Info) Description 05/26/2025 Lab Requisition [facility] - Main Lab [address] [facility] [place] [phone] Tremayne Collazo MD [address] [place] [address] Type 2 diabetes mellitus without complications (CMS/HCC V24, CMS/HCC V28); Peripheral vascular disease, unspecified (CMS/HCC V24) Social History Tobacco Use Types Packs/Day Years [...] Procedure Name Priority Date/Time Associated Diagnosis Comments COMPLETE BLOOD COUNT Routine 05/26/2025 5:07 AM EDT Type 2 diabetes mellitus without complications (CMS/HCC V24, CMS/HCC V28) Peripheral vascular disease, unspecified (CMS/HCC V24) HEMOGLOBIN A1C Routine 05/26/2025 5:07 AM EDT Type 2 diabetes mellitus without complications (CMS/HCC V24, CMS/HCC V28) Peripheral vascular disease, unspecified (CMS/HCC V24) BASIC METABOLIC PANEL Routine 05/26/2025 5:07 AM EDT Type 2 diabetes mellitus without complications ([facility] V24, [facility] V28) Peripheral vascular disease, unspecified ([facility] V24) documented in this encounter Results * (ABNORMAL) Hemoglobin A1c (05/26/2025 5:07 AM EDT) Pathologist [facility] Hemoglobin A1C 6.8(H) <6.5 % LAB CHEMISTRY METHOD 05/26/2025 1:31 PM EDT [facility] Mean Bld Glu Estim. 148 mg/dL LAB CHEMISTRY METHOD 05/26/2025 1:31 PM EDT [facility] Blood Venous blood specimen / Unknown Venipuncture / Unknown 05/26/2025 5:07 AM EDT 05/26/2025 7:33 AM EDT us Tremayne Collazo MD LAB BLOOD ORDERABLES Final Resu lt [facility] [address] [place] [address], [place] [phone] * (ABNORMAL) Basic metabolic panel (05/26/2025 5:07 AM EDT) [facility] Sodium 142 133 - 145 mmol/L LAB CHEMISTRY METHOD 05/26/2025 8:42 AM EDT [facility] Potassium 4.2 3.5 - 5.5 mmol/L LAB CHEMISTRY METHOD 05/26/2025 8:42 AM EDT [facility] Chloride 107 96 - 110 mmol/L LAB CHEMISTRY METHOD 05/26/2025 8:42 AM EDT [facility] CO2 31 21 - 32 mmol/L LAB CHEMISTRY METHOD 05/26/2025 8:42 AM EDT [facility] Anion Gap 4 3 - 11 LAB CHEMISTRY METHOD 05/26/2025 8:42 AM EDT [facility] Glucose 56(L) 70 - 100 mg/dL LAB CHEMISTRY METHOD 05/26/2025 8:42 AM EDT [facility] BUN 13 5 - 25 mg/dL LAB CHEMISTRY METHOD 05/26/2025 8:42 AM EDT [facility] Comment:Results verified by repeat testing Creatinine 0.60(L) 0.70 - 1.30 mg/dL LAB CHEMISTRY METHOD 05/26/2025 8:42 AM EDT [facility] eGFR 103 >=60 mL/min/1. 73m2 LAB CHEMISTRY METHOD 05/26/2025 8:42 AM EDT [facility] Comment:Calculation based on the Chronic Kidney Disease Epidemiology Collaboration (CKD-EPI) equation refit without adjustment for race. BUN/Creatinine Ratio 21.7 LAB CHEMISTRY METHOD 05/26/2025 8:42 AM [facility] Calcium 7.9(L) 8.5 - 10.5 mg/dL LAB CHEMISTRY METHOD 05/26/2025 8:42 AM T [facility] Blood Venous blood specimen / Unknown Venipuncture / Unknown 05/26/2025 5:07 AM EDT 05/26/2025 7:33 AM EDT us Tremayne Collazo MD LAB BLOOD ORDERABLES Final Resu lt [facility] [address] [place] [address], * (ABNORMAL) Complete blood count (05/26/2025 5:07 AM EDT) WBC 6.2 4.8 - 10.8 K/mcL LAB HEMETOLOGY METHOD 05/26/2025 8:07 AM EDT [facility] RBC 3.50(L) 4.50 - 5.50 M/mcL LAB HEMETOLOGY METHOD 05/26/2025 8:07 AM EDT [facility] Hemoglobin 10.0(L) 13.5 - 17.5 g/dL LAB HEMETOLOGY METHOD 05/26/2025 8:07 AM EDT [facility] Hematocrit 33.6(L) 42.0 - 54.0 % LAB HEMETOLOGY METHOD 05/26/2025 8:07 AM EDT [facility] MCV 95.5 79.0 - 98.0 FL LAB HEMETOLOGY METHOD 05/26/2025 8:07 AM EDT [facility] MCH 28.4 27.0 - 32.0 pcg LAB HEMETOLOGY METHOD 05/26/2025 8:07 AM EDT [facility] MCHC 29.8(L) 32.0 - 37.0 g/dL LAB HEMETOLOGY METHOD 05/26/2025 8:07 AM EDT [facility] RDW 15.0 11.0 - 15.0 % LAB HEMETOLOGY METHOD 05/26/2025 8:07 AM EDT [facility] Platelets 322 130 - 400 K/mcL LAB HEMETOLOGY METHOD 05/26/2025 8:07 AM EDT [facility] MPV 9.5 7.0 - 11.0 FL LAB HEMETOLOGY METHOD 05/26/2025 8:07 AM EDT [facility] NRBC 0.0 <1.0 % LAB HEMETOLOGY METHOD 05/26/2025 8:07 AM EDT [facility] NRBC Absolute 0.00 <0.10 K/mcL LAB HEMETOLOGY METHOD 05/26/2025 8:07 AM EDT [facility] Blood Venous blood specimen / Unknown Venipuncture / Unknown 05/26/2025 5:07 AM EDT 05/26/2025 7:33 AM EDT us Tremayne Collazo MD LAB BLOOD ORDERABLES Final Resu lt [facility] [address] [place] [address], documented in this encounter Visit Diagnoses Diagnosis Type 2 diabetes mellitus without complications (CMS/HCC V24, CMS/HCC V28) Peripheral vascular disease, unspecified (CMS/HCC V24) Peripheral vascular disease, unspecified documented in this encounter Care Teams Welding Equipment Sales Representative Relationship Specialty Start Date End Date Abilio Chand MD [address] [place] [address] PCP - General Internal Medicine 10/24/24 documented as of this encounter
--- OUTSIDE RECORDS SUMMARY | 2025-07-07 10:33 | XMS_ITS | Encounter Summary ---
Author Organization [facility] Address [address] [place] [address] Care Team Providers Care Instrumentation And Controls Designer Name Role Phone Aiblio Chand MD Primary Care Provider [phone] Encounter Details Date Type Department Care Team (Late st Contact Info) Description 11/25/2024 Lab Requisition [facility] - Main Lab [address] [place] [phone] Tremayne Collazo MD [address] [place] [id number] Vitamin D deficiency, unspecified Social History Tobacco Use Types Packs/Day Years [...] Procedure Name Priority Date/Time Associated Diagnosis Comments VITAMIN D 25 HYDROXY Routine 11/26/2024 6:48 AM EST Vitamin D deficiency, unspecified documented in this encounter Results * (ABNORMAL) Vitamin D 25 hydroxy (11/26/2024 6:48 AM EST) Vit D, 25-Hydroxy 22.6(L) 30.0 - 80.0 ng/mL LAB CHEMISTRY METHOD 11/26/2024 12:00 PM EST [facility] Blood Venous blood specimen / Unknown Venipuncture / Unknown 11/26/2024 6:48 AM EST 11/26/2024 12:00 PM EST us Tremayne Collazo MD LAB BLOOD ORDERABLES Final [facility] [address] [place] [address], documented in this encounter Visit Diagnoses Diagnosis Vitamin D deficiency, unspecified documented in this encounter Care Teams Instrumentation And Controls Designer Relationship Specialty Start Date End Date Abilio Chand MD [address] [place] [address] PCP - General Internal Medicine 10/24/24 documented as of this encounter
--- OUTSIDE RECORDS SUMMARY | 2025-07-07 10:33 | XMS_ITS | Patient Health Record ---
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, bilateral legs (I70.203) Active confirmed Problem Information temporarily unavailable Non-pressure chronic ulcer of other part of left foot with fat layer exposed (L97.522) Active confirmed Problem Information temporarily unavailable Primary osteoarthritis, left ankle and foot (M19.072) Active confirmed Problem Information temporarily unavailable Type 1 diabetes mellitus with diabetic polyneuropathy (E10.42) Active confirmed Problem Information temporarily unavailable 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, bilateral legs (I70.203) Active [...] X ray : Foot, left 3V 01/22/2024 82438-YYBVNLM NAIL, 6 OR MORE 04/07/2016 37228-XKPHBRD NAIL, 6 OR MORE 06/06/2016 87971-VOCUZHY NAIL, 6 OR MORE 08/11/2016 48058-XTRJHGA NAIL, 6 OR MORE 10/10/2016 40338-CDISJRI NAIL, 6 OR MORE 12/12/2016 90702-VWMVXCA NAIL, 6 OR MORE 09/19/2011 93838-IMUEFQV NAIL, 6 OR MORE 10/20/2011 30600-NTNFKGP NAIL, 6 OR MORE 11/24/2011 38362-MLHSUHD NAIL, 6 OR MORE 01/19/2012 24172-CNFWUYK NAIL, 6 OR MORE 03/29/2012 62284-UYXPURQ NAIL, 6 OR MORE 06/04/2012 56237-CMGVEMG NAIL, 6 OR MORE 08/06/2012 43581-CLJNNVF NAIL, 6 OR MORE 10/15/2012 36521-ANZVFAN NAIL, 6 OR MORE 12/17/2012 39357-QXGGJQY NAIL, 6 OR MORE 02/18/2013 15128-VFILOIN NAIL, 6 OR MORE 05/09/2013 34338-AZFZAKO NAIL, 6 OR MORE 07/11/2013 27922-OEHCAKM NAIL, 6 OR MORE 09/30/2013 08293-KEIAMAU NAIL, 6 OR MORE 12/09/2013 61412-ZGJERNI NAIL, 6 OR MORE 02/17/2014 45366-DKCWGVO NAIL, 6 OR MORE 04/24/2014 20692-EEVEVWV NAIL, 6 OR MORE 06/30/2014 51774-ZYUYSPA NAIL, 6 OR MORE 09/01/2014 93066-QXEFBDY NAIL, 6 OR MORE 12/11/2014 08621-OJTIMQN NAIL, 6 OR MORE 02/23/2015 70298-QVFYSNU NAIL, 6 OR MORE 04/27/2015 00329-TCDOZKE NAIL, 6 OR MORE 07/06/2015 87333-NNIBDZF NAIL, 6 OR MORE 09/28/2015 94484-JFFSETL NAIL, 6 OR MORE 11/30/2015 93207-ALBQJAM NAIL, 6 OR MORE 02/01/2016 56562-RZCTFCU NAIL, 1-5 11/28/2018 65651-QUGWHIH NAIL, 1-5 03/06/2019 21787-Zdvdmhlg Plate 03/03/2016 52366- Debride <25 sq cm 03/03/2016 27217- Debride <25 sq cm 03/17/2016 19554- Debride <25 sq cm 03/09/2015 67562- Debride <25 sq cm 02/15/2016 04759- Debride <25 sq cm 11/21/2013 65827- Debride <25 sq cm 12/09/2013 98130- Debride <25 sq cm 09/30/2013 29797- Debride <25 sq cm 07/11/2013 34965- Debride <25 sq cm 05/09/2013 39698- Debride <25 sq cm 10/20/2011 90035- Debride <25 sq cm 09/19/2011 39919- Debride <25 sq cm 07/18/2011 21994- Debride <25 sq cm 08/25/2011 08214- Debride <25 sq cm 09/12/2016 98595- Debride <25 sq cm 01/22/2024 10171- Debride <25 sq cm 05/09/2016 93377- Debride <25 sq cm 06/06/2016 43504- Debride <25 sq cm 04/07/2016 57534-QSXVKRB SKIN/TISSUE 08/29/2016 20936-CZCGMXA SKIN/TISSUE 08/11/2016 23553-UVQTNQD SKIN/TISSUE 12/12/2016 66645-ODQAQCR SKIN/TISSUE 11/07/2016 66744-XKMBQUE SKIN/TISSUE 11/21/2016 57985-FZUCWIZ SKIN/TISSUE 01/22/2024 48084-QFSWNRB SKIN/TISSUE 10/10/2019 62332-KHXZPLB SKIN/TISSUE 08/20/2013 53861-HQKXNBR SKIN/TISSUE 11/11/2013 98947-ISQQXFG SKIN/TISSUE 11/21/2013 85903-IHZHIEQ SKIN/TISSUE 02/23/2015 48826 I&D ABSCESS- SIMPLE,SINGLE 016 14819 I&D ABSCESS- SIMPLE,SINGLE 011 86511-QYJN SKIN LESIONS, OVER 4 09/30/20 13 27210-SIBI SKIN LESIONS, OVER 4 05/09/20 13 50701-LEVE SKIN LESIONS, OVER 4 07/11/20 13 84977-XUVR SKIN LESIONS, OVER 4 02/19/20 13 13580-DTMK SKIN LESIONS, OVER 4 12/18/19 13 53684-WHRE SKIN LESIONS, OVER 4 10/15/19 13 16354-NOVU SKIN LESIONS, OVER 4 08/06/20 12 69302-GABB SKIN LESIONS, OVER 4 09/19/20 11 19115-MDKF SKIN LESIONS, OVER 4 10/20/19 12 72425-SRGX SKIN LESIONS, OVER 4 06/04/20 12 57510-SCPZ SKIN LESIONS, OVER 4 03/29/20 12 06428-SRQF SKIN LESIONS, OVER 4 01/19/20 12 47997-CMEW SKIN LESIONS, OVER 4 11/24/19 12 79999-IYIL SKIN LESIONS, OVER 4 02/01/20 16 72002-VBCT SKIN LESIONS, OVER 4 11/30/19 16 29154-QRSO SKIN LESIONS, OVER 4 04/27/20 15 55471-DZED SKIN LESIONS, OVER 4 09/28/20 15 61497-RZIK SKIN LESIONS, OVER 4 07/06/20 15 84476-BHFW SKIN LESIONS, OVER 4 12/10/19 14 61366-XIZK SKIN LESIONS, OVER 4 04/24/20 14 58490-FOQN SKIN LESIONS, OVER 4 02/18/20 14 52218-GRRM SKIN LESIONS, OVER 4 02/24/20 15 71005-QUFW SKIN LESIONS, OVER 4 12/12/19 15 37589-QPFL SKIN LESIONS, OVER 4 09/01/20 14 32723-FUNG SKIN LESIONS, OVER 4 06/30/20 14 00122-BKPS SKIN LESIONS, OVER 4 01/22/20 24 24352-IJSU SKIN LESIONS, OVER 4 10/10/19 17 63297-QCCJ SKIN LESIONS, OVER 4 12/13/19 17 53072-DHJV SKIN LESIONS, OVER 4 08/11/20 16 81485-OMBH SKIN LESIONS, OVER 4 04/07/20 16 89187-ZCPY SKIN LESIONS, OVER 4 06/06/20 16 45349-FMYU SKIN LESIONS, 2 TO 4 11/28/19 19 98940-KQGH SKIN LESIONS, 2 TO 4 03/06/20 19 07408-AKZAXVCE OF HEMATOMA/FLUID 019 55973-QQFLDMYJ OF HEMATOMA/FLUID 011 Insurance Providers Payer Name Payer Address Payer Phone Subscriber Number Group Number Insured Name Patient Relationship to Insured Coverage Start Date Coverage End Date [employer] Medicare Adv-[id number] [address] [address] [place] [address] [id number] [employer] Bursn Self - patient is the insured Medical (General) History Medical History History ICD Code diabetes mellitus hypertension measles mumps neuropathy Osteomylitis Peripheral vascular disease Cataracts covid-19 Poor circulation ulcer Surgical History Surgery Date(Month/Year) foot surgery stent insertion right leg 09/16/12 angioplasty 09/06/15 Vein blockage on RT [facility] 08/24/20 16 veins opened to check for bl ood flow, no blood flow, tried to save leg and then amputated it below knee. 12/2016 sx to clean out amputation knee and above - Right 7 Stent removed from rt leg 10/2017 incision and drainage 10/16/17 great toe, amputation Hospitalization History Reason Date(Month/Year) [place] -03/2017 [facility] -01/2017 [facility] angioplasty, Dr Xie 09/06/15 [facility]- stent insertion right le g 09/16/12
--- OUTSIDE RECORDS SUMMARY | 2025-07-07 10:33 | XMS_ITS | Encounter Summary ---
Author Organization [facility] Address [address] [address] Phone Care Team Providers Care Core Rescuer Name Role Phone Sanya Araya MD Unavailable [phone] Abilio Chand MD Primary Care Provider [phone] Reason for Visit * Reason Onset Date Comments Medication Refill 07/03/2025 Encounter Details Date Type Department Care Team (Late st Contact Info) Description 07/03/2025 Refill [facility] [address] [place] [address] Brook Villarreal MD [address] [place] [phone] [email or web address] Medication Refill Social History Tobacco Use Types Packs/Day Years Used Date Smoking Tobacco: Former Cigarettes 1 2007 Passive Smoke Exposure: Past Smokeless Tobacco: Never Alcohol Use Standard Drinks/Week Comments Never 0 (1 standard drink = 0.6 oz pur e alcohol) Education Answer Date Recorded Are you interested in more education? Not on [place] e 02/02/2023 Are you concerned about learning? Not on file 02/02/2023 No 02/02/2023 No 02/02/2023 Digital Access Answer Date Recorded No 03/06/2023 No 03/06/2023 Reliable internet access at home? Not on file 03/06/2023 Device with a working camera? Not on file Sex and Gender Information Value Date Recorded Sex Assigned at Not on file Legal Sex Male 11:38 AM EST Gender Identity Not on file Sexual Orientation Not on file documented as of this encounter Progress Notes * Suzanne Ren, MA - 07/03/2025 2:47 PM EDTAddended by: SUZANNE REN on: 07/03/2025 02:47 PM Modules accepted: Orders * Suzanne Ren MA - 07/03/2025 2:47 PM EDT Rx Care Gap Status - Instructions for Clinical Staff (prescriber discretion applies): > Mismatch review guide > At least one request does not meet full criteria. Specifics below. > Labs due: Please remind patient. > Orders needed: Click OPA and Accept to open SmartSet. A1c BMP Lipid panel - Needs order * Visit Info Last visit: 01/13/2025 Erica Ovalle PA-C - Endocrinology [facility] > Requested f/u: Return in about 4 months (around 05/15/2025). Upcoming visit: 09/14/2025 Brook Villarreal MD - Endocrinology [facility] ACTIONS TAKEN BY Suzanne Ren MA - Labs needed - Teed up orders and/or reminded pt. Diabetes Rx Protocol (on Diabetes Registry) - insulin glargine,hum.rec.anlog Criteria not met; renew for up to 3 months. Visit in the past 14 months: Yes Clinical criteria: - BMP within past year: None (has active order) - A1c within past 6 months: None (has active order) - Lipid panel within past year: No (No prior value) - Urine microalbumin within past year or on CALLUM/ARB: Yes Lab Results Component Value Date SODIUM 141 04/03/2023 POTASSIUM 4.9 04/03/2023 CHLORIDE 103 04/03/2023 CO2 28 04/03/2023 BUN 21 (H) 04/03/2023 CREATININE 0.90 04/03/2023 EGFR 92 04/03/2023 Lab Results Component Value Date HEMOGLOBIN A1C 7.6 (H) 04/03/2023 Health Maintenance Labs Due / Due Soon Topic Date Due CREATININE LEVEL 02/07/2025 POTASSIUM LEVEL 02/07/2025 HEMOGLOBIN A1C 04/28/2025 * Darinel Shaver - 07/03/2025 2:38 PM EDT Pt lvm looking for a refill of LANTUS SOLOSTAR U-100 INSULIN 100 unit/mL (3 mL) InPn injection pen Thanks. documented in this encounter Plan of Treatment Upcoming Encounters Date Type Department Care Team (Late st Contact Info) Description 09/14/2025 10:00 AM EST Office Visit [facility] [address] [place] [address] [place] [address] Brook Villarreal MD [address] [place] [phone] [email or web address] documented as of this encounter Visit Diagnoses Diagnosis Type 2 diabetes mellitus with diabetic peripheral angiopathy without gangrene, with long-term current use of insulin documented in this encounter Care Teams Core Rescuer Relationship Specialty Start Date End Date Abilio Chand MD [address] [place] [address] PCP - General Internal Medicine 04/07/24 Sanya Araya MD [address] [address] Vascular Surgery 04/08/23 documented as of this encounter Additional Source Comments The information contained in this document represents components of the legal health record. It is not the complete legal health record.[facility]
--- OUTSIDE RECORDS SUMMARY | 2025-07-07 10:33 | XMS_ITS | Encounter Summary ---
Author Organization [facility] Address [address] [place] [address] Care Team Providers Care Sole Buffer Name Role Phone Abilio Chand MD Primary Care Provider [phone] Encounter Details Date Type Department Care Team (Late st Contact Info) Description 10/30/2024 Lab Requisition [facility] - [facility] Lab [address] [place] [id number] Tremayne Collazo MD [address] [place] [id number] Encounter for other specified aftercare Social History Tobacco Use Types Packs/Day Years [...] Associated Diagnosis Comments COMPLETE BLOOD COUNT Routine 10/30/2024 4:57 AM EST Encounter for other specified aftercare BASIC METABOLIC PANEL Routine 10/30/2024 4:57 AM EST Encounter for other specified aftercare documented in this encounter Results * (ABNORMAL) Basic metabolic panel (10/30/2024 4:57 AM EST) Sodium 135 133 - 145 mmol/L LAB CHEMISTRY METHOD 10/30/2024 9:[address] [facility] Potassium 4.1 3.5 - 5.5 mmol/L LAB CHEMISTRY METHOD 10/30/2024 9:16 AM [facility] Chloride 102 96 - 110 mmol/L LAB CHEMISTRY METHOD 10/30/2024 9:16 AM [facility] CO2 27 21 - 32 mmol/L LAB CHEMISTRY METHOD 10/30/2024 9:16 AM [facility] Anion Gap 6 3 - 11 LAB CHEMISTRY METHOD 10/30/2024 9:16 AM [facility] Glucose 79 70 - 100 mg/dL LAB CHEMISTRY METHOD 10/30/2024 9:16 AM [facility] BUN 38(H) 5 - 25 mg/dL LAB CHEMISTRY METHOD 10/30/2024 9:16 AM [facility] Creatinine 0.88 0.70 - 1.30 mg/dL LAB CHEMISTRY METHOD 10/30/2024 9:16 AM [facility] eGFR 92 >=60 mL/min/1. 73m2 LAB CHEMISTRY METHOD 10/30/2024 9:16 AM [facility] Comment:Calculation based on the Chronic Kidney Disease Epidemiology Collaboration (CKD-EPI) equation refit without adjustment for race. BUN/Creatinine Ratio 43.2 LAB CHEMISTRY METHOD 10/30/2024 9:16 AM [facility] Calcium 7.2(L) 8.5 - 10.5 mg/dL LAB CHEMISTRY METHOD 10/30/2024 9:16 AM [facility] Blood Venous blood specimen / Unknown Venipuncture / Unknown 10/30/2024 4:57 AM EST 10/30/2024 8:32 AM EST us Tremayne Collazo MD LAB BLOOD ORDERABLES Final Resu lt [facility] [address] [place] [address], [place] [phone] * (ABNORMAL) Complete blood count (10/30/2024 4:57 AM EST) [facility] WBC 5.2 4.8 - 10.8 K/mcL LAB HEMETOLOGY METHOD 10/30/2024 9:04 AM [facility] RBC 2.60(L) 4.50 - 5.50 M/mcL LAB HEMETOLOGY METHOD 10/30/2024 9:04 AM [facility] Hemoglobin 7.5(L) 13.5 - 17.5 g/dL LAB HEMETOLOGY METHOD 10/30/2024 9:04 AM [facility] Hematocrit 24.7(L) 42.0 - 54.0 % LAB HEMETOLOGY METHOD 10/30/2024 9:04 AM [facility] MCV 93.9 79.0 - 98.0 FL LAB HEMETOLOGY METHOD 10/30/2024 9:04 AM [facility] MCH 28.5 27.0 - 32.0 pcg LAB HEMETOLOGY METHOD 10/30/2024 9:04 AM [facility] MCHC 30.4(L) 32.0 - 37.0 g/dL LAB HEMETOLOGY METHOD 10/30/2024 9:04 AM [facility] RDW 14.3 11.0 - 15.0 % LAB HEMETOLOGY METHOD 10/30/2024 9:04 AM [facility] Platelets 397 130 - 400 K/mcL LAB HEMETOLOGY METHOD 10/30/2024 9:04 AM [facility] MPV 9.1 7.0 - 11.0 FL LAB HEMETOLOGY METHOD 10/30/2024 9:04 AM [facility] NRBC 0.0 <1.0 % LAB HEMETOLOGY METHOD 10/30/2024 9:04 AM [facility] NRBC Absolute 0.00 <0.10 K/mcL LAB HEMETOLOGY METHOD 10/30/2024 9:[address] [facility] Blood Venous blood specimen / Unknown Venipuncture / Unknown 10/30/2024 4:57 AM EST 10/30/2024 8:32 AM EST us Tremayne Collazo MD LAB BLOOD ORDERABLES Final Resu lt [facility] [address] [place] [address], documented in this encounter Visit Diagnoses Diagnosis Encounter for other specified aftercare documented in this encounter Care Teams Sole Buffer Relationship Specialty Start Date End Date Abilio Chand MD [address] [place] [address] PCP - General Internal Medicine 10/24/24 documented as of this encounter
--- OUTSIDE RECORDS SUMMARY | 2025-07-07 10:33 | XMS_ITS | Clinical Summary ---
Author Organization [facility] Address [address] [id number] Phone Care Team Providers Care Supervisor Reinforced Steel Placing Name Role Phone Sanya Araya MD Unavailable Abilio Chand MD Primary Care Provider [phone] Allergies No known active allergies Medications traZODone (DESYREL) 50 MG tablet 3 Active tamsulosin (FLOMAX) 0.4 mg Cap 3 Active PARoxetine (PAXIL) 30 MG tablet 3 Active lisinopril-hydr oCHLOROthiazide (PRINZIDE,ZESTO RETIC) 10-12.5 mg per tablet Take 1 tablet by mouth daily. 3 Active ketoconazole 2 % cream daily as needed. 3 Active cyanocobalamin, vitamin B-12, 250 MCG tablet Take 250 mcg by mouth daily. Active clopidogrel (PLAVIX) 75 mg tablet Take 75 mg by mouth daily. 3 Active metFORMIN (GLUCOPHAGE) 500 MG tablet Take 2 tablets (1,000 mg total) by mouth 2 (two) times a day. 360 tablet 2 4 Active ONETOUCH DELICA PLUS LANCET 33 gauge Misc Inject 1 each into the skin 2 (two) times a day. 200 each 3 4 Active COMFORT EZ PEN NEEDLES 33 gauge x 1/4 Ndle Inject 1 each under the skin daily. 100 each 3 4 Active ONETOUCH ULTRA TEST Strp strips Place 1 strip onto the skin 2 (two) times a day. 200 strip 3 4 Active glipiZIDE (GLUCOTROL XL) 5 MG 24 hr tablet Take 3 tablets (15 mg total) by mouth daily. 1 in the am 2 in the pm 270 tablet 2 4 Active empagliflozin (JARDIANCE) 25 mg tablet Take 1 tablet (25 mg total) by mouth daily. 90 tablet 1 5 Active LANTUS SOLOSTAR U-100 INSULIN 100 unit/mL (3 mL) InPn injection penIndications: Type 2 diabetes mellitus with diabetic peripheral angiopathy without gangrene, with long-term current use of insulin Inject 46-50 Units under the skin nightly at bedtime. 15 mL 5 5 Active LANTUS SOLOSTAR U-100 INSULIN 100 unit/mL (3 mL) InPn injection penIndications: Type 2 diabetes mellitus with diabetic peripheral angiopathy without gangrene, with long-term current use of insulin Inject 46-50 Units under the skin nightly at bedtime. 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 PAD. Lt 1 toe amp. Lt 4-5th toe partial amp. 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 Angioplasty 2020-Dr Araya. DRP, s/p bleed-laser. Dr Frausto. U micro/eGFR nl Assessment & Plan (01/13/2025 9:26 AM EDT): Control is improving based upon the patient's recalls of his SMBG readings since being home from rehab. No frequent or severe hypoglycemia. He recalls having a low to 47 while in rehab. Since being home his glucose levels have been better. Will maintain his regimen. Continue to work on eating healthy and being active. To call or message with any issues managing his glucose levels. Needs to reschedule ophtho. Will order labs at next visit Assessment & Plan (07/15/2024 9:27 AM EDT): Control is good based upon the patient's SMBG readings. No frequent or severe hypoglycemia. He had a low this morning to 61. He had take too much insulin last night. He corrected and then was fine. We are having to change his glargine to Lantus due to insurance coverage. Continue to work on eating healthy and being active. To call or message with any issues managing his glucose levels. Up to date with ophtho. Labs ordered today Assessment & Plan (04/27/2024 4:19 PM EDT): Suboptimal control by meter download and last A1c of 7.5% in 02/2024. Had mild fasting hypoglycemia to the 50s when using 52 units of Lantus at bedtime reasonable fasting glucose levels when using 48 units. Reviewed symptoms, prevention and treatment of hypoglycemia. -Discussed titration of Lantus depending on fasting glucose. For now use no more than 48 units at bedtime. If fasting glucose over 140 repeatedly and no overnight hypoglycemia, patient may increase it by 2 units. -Will increase Jardiance, use up to 10 mg tablets by taking 2 tabs in the morning and if no side effects I will change prescription to the 25 mg tablet daily. -Discussed the importance of insulin injection site rotation to improve absorption. -Continue current metformin and glipizide. -Call if blood sugar below 70/250 repeatedly. -Reports diarrhea on a atorvastatin. Encouraged to discuss alternative lipid- lowering agent with PCP. Assessment & Plan (01/11/2024 12:38 PM EDT): Control is reasonable/good based upon the patient's SMBG readings. No frequent or severe hypoglycemia. He had a couple episodes of hypoglycemia recently due to taking too much insulin for what he ate. He corrected and then was fine. We are having to change his glargine to Lantus due to insurance coverage. Continue to work on eating healthy and being active. To call or message with any issues managing his glucose levels. Up to date with opho. Sees vascular and podiatry for his foot. Labs ordered today Assessment & Plan (10/05/2023 3:29 PM EST): Suboptimal control by meter download with fasting hypoglycemia to the 50s with symptoms almost daily. No severe hypoglycemia. He has been adjusting his Levemir between 52 to 60 units depending on bedtime blood sugars. Last A1c 7.6% in 03/2023 in our records. [facility], will request report. We reviewed symptoms, prevention and treatment of hypoglycemia. Plan to decrease the Levemir to 46 units at bedtime and keep this dose for few days then if fasting glucose is over 130-140 repeatedly and no overnight hypoglycemia he would increase his Levemir dose by 2 units. After treatment of hypoglycemia before breakfast he could take his morning dose of medications including the metformin, 5 mg of glipizide and 10 mg of Jardiance and eat within 30 minutes. Take the glipizide together with the metformin about 30 minutes before dinner as well. Call if blood sugar below 70 or over 250 repeatedly. Assessment & Plan (07/11/2023 12:31 PM EDT): Control is reasonable based upon the patient's SMBG readings. No frequent or severe hypoglycemia. He had a couple episodes of hypoglycemia recently due to taking too much insulin for what he ate. He corrected and then was fine. Will maintain his regimen. Continue to work on eating healthy and being active. To call or message with any issues managing her glucose levels. Up to date with opho. Sees vascular for his foot. Labs ordered today Assessment & Plan (04/08/2023 10:33 PM EDT): Reviewed symptoms, prevention and treatment of hypoglycemia.67 yo man w/ T2 DM since age 38. Complications include PAD and DRP. Control improved by 10/2022 w/ A1c down to 7.2%. No frequent or severe hypoglycemia. Pt is adjusting his Levemir dose at HS b/w 53-63 Units. Currently has a 3 mm abrasion on the Lt 2nd toe tip dorsal surface. He will call his geoduck diver, Dr Rasmussen. He has f/u w/ vascular surgeon Dr Araya in April. Atorvastatin is on hold b/o diarrhea. Will continue current DM Rx. Labs today. Reviewed symptoms, prevention, treatment of hypoglycemia call if blood sugar below 70 or over 250 repeatedly Encounters Date Type Department Care Team Description 07/03/2025 Refill [facility] [address] [place] [address] Brook Villarreal MD Medication Refill from Last 3 Months Family History Medical History Relation Comments Stroke Father Cancer Mother Relation Status Comments Father Mother Social History Tobacco Use Types Packs/Day Years Used Date Smoking Tobacco: Former Cigarettes 1 2007 Passive Smoke Exposure: Past Smokeless Tobacco: Never Tobacco Cessation:Counseling Given: Not Answered Alcohol Use Standard Drinks/Week Comments Never 0 [...] on file Sexual Orientation Not on file Last Filed Vital Signs Vital Sign Reading Time Taken Comments Blood Pressure 98/50 07/15/2024 9:01 AM EDT Pulse 92 07/15/2024 9:01 AM EDT Temperature 36.4 C (97.5 F) 01/11/2024 9:42 AM EDT Respiratory Rate - - Oxygen Saturation 98% 07/15/2024 9:01 AM EDT Inhaled Oxygen Concentration - - Weight 97.5 kg (215 lb) 07/15/2024 9:01 AM EDT Height 172.7 cm (5' 7.99 ) 07/15/2024 9:01 AM ED T Body Mass Index 32.7 07/15/2024 9:01 AM EDT Plan of Treatment Upcoming Encounters Date Type Department Care Team (Late st Contact Info) Description 09/14/2025 10:00 AM EST Office Visit [facility] [address] [place] [address] [place] [address] Brook Villarreal MD [address] [place] [id number] Health Maintenance Due Date Last Done Comments Adult Td,Tdap Booster 1955 DEPRESSION SCREENING 1965 HEPATITIS C SCREENING 1971 COLOGUARD 1998 COLONOSCOPY 1998 COLORECTAL CANCER SCREENING 1998 FIT TEST 1998 FOBT 1998 SIGMOIDOSCOPY 1998 VIRTUAL COLONOSCOPY 1998 ZOSTER VACCINES (1 of 2) 2003 RSV VACCINE (1 - Risk 60-74 years 1-dose series) 2013 PNEUMOCOCCAL VACCINES (50+ years) (2 of 2 - PCV) 01/04/2018 01/04/2017 ABDOMINAL AORTIC ANEURYSM (AAA) SCREENING 2018 DIABETIC EYE EXAM 04/03/2023 BLOOD PRESSURE 01/13/2025 07/15/2024 CREATININE LEVEL 02/07/2025 02/08/2024, 09/04/2023, 04/03/2023 POTASSIUM LEVEL 02/07/2025 02/08/2024, 09/04/2023, 04/03/2023 HEMOGLOBIN A1C 04/28/2025 10/29/2024, 04/03/2023 INFLUENZA VACCINE (#1) 2025 COVID-19 VACCINE (1 - 2023-2 5 season) 2025 LIPID PANEL 10/29/2025 10/29/2024 SMOKING STATUS SCREENING (On ce After 26 Yrs) Completed 01/13/2025 HEPATITIS A VACCINES Aged Out No long er eligible based on patient's age to complete this topic HIB VACCINES Aged Out No longer eligi ble based on patient's age to complete this topic MENINGOCOCCAL VACCINES (ACWY) Aged Out No longer eligible based on patient's age to complete this topic MENINGOCOCCAL VACCINES (B) Aged Out N o longer eligible based on patient's age to complete this topic Medical Devices Not on file Procedures Procedure Name Priority Date/Time Associated Diagnosis Comments BASIC METABOLIC PANEL Routine 02/08/2024 10:46 AM EDT Type 2 diabetes mellitus with diabetic peripheral angiopathy without gangrene, with long-term current use of insulin HEMOGLOBIN A1C Routine 04/03/2023 11:02 AM EDT Type 2 diabetes mellitus with diabetic peripheral angiopathy without gangrene, with long-term current use of insulin from Last 3 Months or Most Recently Relevant to Health Maintenance Results * Basic metabolic panel (02/08/2024 10:46 AM EDT) Blood us Erica Ovalle PA-C LAB BLOOD ORDERABL ES Final Result Performing Organization Address [facility]/ZIP Co de Phone Number [address] [phone] * (ABNORMAL) Hemoglobin A1c (04/03/2023 11:02 AM EDT) HEMOGLOBIN A1C 7.6(H) 4.3 - 5.8 % [facility] Blood 04/03/2023 11:0 2 AM EDT 04/03/2023 11:06 AM EDT us Brook Villarreal MD LAB BLOOD ORDERABLES Final Res ult [address] [phone] from Last 3 Months or Most Recently Relevant to Health Maintenance [place] [address] [place] [address] [address] [place] [place] [address] [place] [place] [address] MEDICARE [place]PLACEMENT MEDICARE [place] [place] [address] [place] [place] [address] [place] [place] [address] [place] [place] [address] MEDICARE REPLACEMENT MEDICARE REPLACEMENT Care Teams Supervisor [employer] Relationship Specialty Start Date End Date Abilio Chand MD [address] [place] [address] [place] [address] PCP - General Internal Medicine 04/07/24 Sanya Araya MD [address] [place] [address] Vascular Surgery 04/08/23 Additional Source Comments The information contained in this document represents components of the legal health record. It is not the complete legal health record.[facility]
--- OUTSIDE RECORDS SUMMARY | 2025-07-07 10:33 | XMS_ITS | Clinical Summary ---
Author Organization [facility] Address [address] [place] [address] Phone Care Team Providers Care Hat Blocking Machine Operator Name Role Phone Abilio Chand MD Primary Care Provider [phone] Allergies No known active allergies Encounters Date Type Department Care Team Description 05/26/2025 Lab Requisition [facility] [address] [facility] [place] [phone] Tremayne Collazo MD Type 2 diabetes mellitus without complications (CMS/HCC V24, CMS/HCC V28); Peripheral vascular disease, unspecified (CMS/HCC V24) from Last 3 Months Social History Tobacco Use Types Packs/Day Years Used Date Smoking Tobacco: Former Smokeless Tobacco: Never Alcohol Use Standard Drinks/Week Comments Yes 0 (1 standard drink = 0.6 oz pur e alcohol) Sex and Gender Information Value Date Recorded Sex Assigned at Not on file Legal Sex Male 9:01 AM EST Gender Identity Not on file Sexual Orientation Not on file Obstetrics History Last Filed Vital Signs Vital Sign Reading Time Taken Comments Blood Pressure 158/62 10/24/2024 2:27 PM EST Pulse 87 10/24/2024 2:27 PM EST Temperature 36.6 C (97.8 F) 10/24/2024 2:27 PM EST Respiratory Rate 18 10/24/2024 2:27 PM EST Oxygen Saturation 98% 10/24/2024 2:27 PM EST Inhaled Oxygen Concentration - - Weight 75 kg (165 lb 5.5 oz) 10/24/2024 2:27 PM EST Height 172 cm (5' 7.72 ) 10/24/2024 2:27 PM EST Body Mass Index 25.35 10/24/2024 2:27 PM EST Plan of Treatment Health Maintenance Due Date Last Done Comments Colorectal Cancer Screening: Colonoscopy 1953 Diabetes: Annual Foot Exam 1963 Diabetes: Annual Retina Eye Exam 1963 DTaP,Tdap,and Td Vaccines (1 - Tdap) 1972 Zoster Vaccines (1 of 2) 2003 RSV Immunization Adult Patients (1 - Risk 60-74 years 1-dose series) 2013 Pneumococcal Vaccine: 50+ Years (2 of 2 - PCV) 01/04/2018 01/04/2017 Abdominal Aortic Aneurysm (AAA) Screen 09/10/2022 Falls Risk Assessment 09/10/2022 Hepatitis C Screening 09/10/2022 Medicare Annual Wellness Visit 09/10/2022 Social Influencers of Health Screening 09/10/2022 Depression Screening 10/08/2024 Diabetes: Annual Urine Albumin-Creatinine Ratio (uACR) 02/07/2025 02/08/2024 COVID-19 Vaccine ( season) 2025 Influenza Vaccine (#1) 2025 Diabetes: Blood Sugar Control Test (HGBA1C) 11/26/2025 05/26/2025, 10/29/2024 Diabetes: Annual GFR (Glomerular Filtration Rate) 05/26/2026 05/26/2025, 10/30/2024, 10/29/2024, Additional history exists Hypertension/CHF/CAD Annual BMP Blood Test 05/26/2026 05/26/2025, 10/30/2024, 10/29/2024, Additional history exists Cholesterol Screening (Lipid Panel) 10/29/2029 10/29/2024 HIB Vaccines Aged Out No longer eligi ble based on patient's age to complete this topic HPV Vaccines Aged Out No longer eligi ble based on patient's age to complete this topic Hepatitis A Vaccines Aged Out No long er eligible based on patient's age to complete this topic Hepatitis B Vaccines Aged Out No long er eligible based on patient's age to complete this topic IPV Vaccines Aged Out No longer eligi ble based on patient's age to complete this topic MMR Vaccines Aged Out No longer eligi ble based on patient's age to complete this topic Meningococcal ACWY Vaccine Aged Out N o longer eligible based on patient's age to complete this topic Meningococcal B Vaccine Aged Out No l onger eligible based on patient's age to complete this topic RSV Immunization Patients Under 20 months Aged Out No longer eligible based on patient's age to complete this topic Varicella Vaccines Aged Out No longer eligible based on patient's age to complete this topic Procedures Procedure Name Priority Date/Time Associated Diagnosis Comments HEMOGLOBIN A1C Routine 05/26/2025 5:07 AM EDT Type 2 diabetes mellitus without complications ([facility]/HCC V24, [facility] V28) Peripheral vascular disease, unspecified ([facility] V24) BASIC METABOLIC PANEL Routine 05/26/2025 5:07 AM EDT Type 2 diabetes mellitus without complications ([facility]/HCC V24, CMS/[facility] V28) Peripheral vascular disease, unspecified ([facility] V24) COMPLETE BLOOD COUNT Routine 05/26/2025 5:07 AM EDT Type 2 diabetes mellitus without complications ([facility]/HCC V24, [facility] V28) Peripheral vascular disease, unspecified ([facility] V24) LIPID PANEL WITH REFLEX TO DIRECT LDL Routine 10/29/2024 7:09 AM EST Peripheral vascular disease, unspecified ([facility]) Type 2 diabetes mellitus with foot ulcer (CODE) ([facility]) Vitamin D deficiency, unspecified Type 2 diabetes mellitus with unspecified complications ([facility]) from Last 3 Months or Most Recently Relevant to Health Maintenance Results * (ABNORMAL) Complete blood count (05/26/2025 5:07 AM EDT) WBC 6.2 4.8 - 10.8 K/mcL LAB HEMETOLOGY METHOD 05/26/2025 8:07 AM [facility] RBC 3.50(L) 4.50 - 5.50 M/mcL LAB HEMETOLOGY METHOD 05/26/2025 8:07 AM [facility] Hemoglobin 10.0(L) 13.5 - 17.5 g/dL LAB HEMETOLOGY METHOD 05/26/2025 8:07 AM [facility] Hematocrit 33.6(L) 42.0 - 54.0 % LAB HEMETOLOGY METHOD 05/26/2025 8:07 AM EDT [facility] MCV 95.5 79.0 - 98.0 FL LAB HEMETOLOGY METHOD 05/26/2025 8:07 AM EDT [facility] MCH 28.4 27.0 - 32.0 pcg LAB HEMETOLOGY METHOD 05/26/2025 8:07 AM EDT [facility] MCHC 29.8(L) 32.0 - 37.0 g/dL LAB HEMETOLOGY METHOD 05/26/2025 8:07 AM EDT [facility] RDW 15.0 11.0 - 15.0 % LAB HEMETOLOGY METHOD 05/26/2025 8:07 AM EDT [facility] Platelets 322 130 - 400 K/mcL LAB HEMETOLOGY METHOD 05/26/2025 8:07 AM EDT [facility] MPV 9.5 7.0 - 11.0 FL LAB HEMETOLOGY METHOD 05/26/2025 8:07 AM EDT [facility] NRBC 0.0 <1.0 % LAB HEMETOLOGY METHOD 05/26/2025 8:07 AM EDT [facility] NRBC Absolute 0.00 <0.10 K/mcL LAB HEMETOLOGY METHOD 05/26/2025 8:07 AM EDT [facility] Blood Venous blood specimen / Unknown Venipuncture / Unknown 05/26/2025 5:07 AM EDT 05/26/2025 7:33 AM EDT us Tremayne Collazo MD LAB BLOOD ORDERABLES Final Resu lt [facility] [address] [place] [address], * (ABNORMAL) Hemoglobin A1c (05/26/2025 5:07 AM EDT) Pathologist [facility] Hemoglobin A1C 6.8(H) <6.5 % LAB CHEMISTRY METHOD 05/26/2025 1:31 PM EDT [facility] Mean Bld Glu Estim. 148 mg/dL LAB CHEMISTRY METHOD 05/26/2025 1:31 PM T [facility] Blood Venous blood specimen / Unknown Venipuncture / Unknown 05/26/2025 5:07 AM EDT 05/26/2025 7:33 AM EDT us Tremayne Collazo MD LAB BLOOD ORDERABLES Final Resu lt [facility] [address] [place] [address], [place] [phone] * (ABNORMAL) Basic metabolic panel (05/26/2025 5:07 AM EDT) [facility] Sodium 142 133 - 145 mmol/L LAB CHEMISTRY METHOD 05/26/2025 8:42 AM [facility] Potassium 4.2 3.5 - 5.5 mmol/L LAB CHEMISTRY METHOD 05/26/2025 8:42 AM [facility] Chloride 107 96 - 110 mmol/L LAB CHEMISTRY METHOD 05/26/2025 8:42 AM [facility] CO2 31 21 - 32 mmol/L LAB CHEMISTRY METHOD 05/26/2025 8:42 AM [facility] Anion Gap 4 3 - 11 LAB CHEMISTRY METHOD 05/26/2025 8:42 AM [facility] Glucose 56(L) 70 - 100 mg/dL LAB CHEMISTRY METHOD 05/26/2025 8:42 AM [facility] BUN 13 5 - 25 mg/dL LAB CHEMISTRY METHOD 05/26/2025 8:42 AM [facility] Comment:Results verified by repeat testing Creatinine 0.60(L) 0.70 - 1.30 mg/dL LAB CHEMISTRY METHOD 05/26/2025 8:42 AM EDT [facility] eGFR 103 >=60 mL/min/1. 73m2 LAB CHEMISTRY METHOD 05/26/2025 8:42 AM EDT [facility] Comment:Calculation based on the Chronic Kidney Disease Epidemiology Collaboration (CKD-EPI) equation refit without adjustment for race. BUN/Creatinine Ratio 21.7 LAB CHEMISTRY METHOD 05/26/2025 8:42 AM EDT [facility] Calcium 7.9(L) 8.5 - 10.5 mg/dL LAB CHEMISTRY METHOD 05/26/2025 8:42 AM EDT [facility] Blood Venous blood specimen / Unknown Venipuncture / Unknown 05/26/2025 5:07 AM EDT 05/26/2025 7:33 AM EDT us Tremayne Collazo MD LAB BLOOD ORDERABLES Final Resu lt [facility] [address] [place] [address], * (ABNORMAL) Lipid panel with reflex to direct LDL (10/29/2024 7:09 AM EST) Cholesterol 118 0 - 200 mg/dL LAB CHEMISTRY METHOD 10/29/2024 12:24 PM [facility] Triglycerides 81 0 - 150 mg/dL LAB CHEMISTRY METHOD 10/29/2024 12:24 PM EST [facility] HDL 31(L) >=40 mg/dL LAB CHEMISTRY METHOD 10/29/2024 12:24 PM EST [facility] LDL Calculated 71 0 - 100 mg/dL LAB CHEMISTRY METHOD 10/29/2024 12:24 PM [facility] VLDL Cholesterol Laron 16.2 mg/dL LAB CHEMISTRY METHOD 10/29/2024 12:24 PM EST [facility] Non HDL Chol. (LDL+VLDL) 87 <145 mg/dL LAB CHEMISTRY METHOD 10/29/2024 12:24 PM EST [facility] Chol/HDL Ratio 3.8 0.0 - 4.4 LAB CHEMISTRY METHOD 10/29/2024 12:24 PM EST [facility] Blood Venous blood specimen / Unknown Venipuncture / Unknown 10/29/2024 7:09 AM EST 10/29/2024 10:19 AM EST us Tremayne Collazo MD LAB BLOOD ORDERABLES Final Resu lt [facility]) [facility] [address] [place] [address], from Last 3 Months or Most Recently Relevant to Health Maintenance Insurance [employer] MEDICARE MEDICAID - [place] Care Teams Hat Blocking Machine Operator Relationship Specialty Start Date End Date Abilio Chand MD [address] [place] [address] PCP - General Internal Medicine 10/24/24
== END 2025-07-07 09:56 | disposition home or self-care (01) ==
LOC: HO.HMCH 09:41
DX: I10 Essential (primary) hypertension (principal); E78.5 Hyperlipidemia, unspecified; E11.9 Type 2 diabetes mellitus without complications; Z89.512 Acquired absence of left leg below knee

== ENCOUNTER 2025-09-09 10:21 | Outpatient (AMB) | payer MEDICARE, MEDICAID, SELFPAY ==
--- NOTE | 2025-09-09 10:31 | A.OFFPC_ITS ---
Vital Signs 09/09/25 10:33 Height 5 ft 7.72 in BMI Reason not done Patient refused/unable BP 100/60 Blood Pressure Location Lt brachial Position Sitting Pulse 86 Pulse Source Pulse Oximeter Temp 97.5 F Temp Source Temporal Artery Scan Pulse Oximetry (%) 98 Oxygen Delivery Method Room Air Intake Visit Reasons: 3 month f/u Intake Note: Patient is here to follow up on DM, HTN. Band Maker Required: No Oil Processing Technician: Not Required per policy Accompanied by: Self / Same As Patient Allergies levofloxacin (Levaquin) Allergy (Unknown, Verified 09/09/25 10:36) hives Medication List - Last Reconciled 09/09/25 by Alanna John PA-C atorvastatin (Lipitor) 10 mg PO BEDTIME blood sugar diagnostic Onetouch Ultra lancets use to check once a day blood sugar diagnostic (OneTouch Ultra Test strips) Test 3 times daily blood-glucose meter (OneTouch Ultra2 Meter) Test 3 times Daily chair, wheel (Wheel chair) As directed chair, wheel (Wheel chair) As directed clopidogrel 75 mg PO DAILY empagliflozin (Jardiance) 25 mg PO DAILY glipizide ER 5 mg PO DAILY insulin glargine 40 units subcut QPM ketoconazole 2% 1 appl topical BID lisinopril-hydrochlorothiazide 10-12.5 mg 1 tab PO DAILY metformin 1,000 mg (2 x 500 mg) PO BID 90 days paroxetine HCl 30 mg PO DAILY pen needle, diabetic As directed with insulin daily tamsulosin 0.4 mg PO DAILY trazodone 50 mg PO BEDTIME PRN Tobacco use date assessed: 09/09/25 Fall risk assessment: No Falls in past year Last assessed Fall Risk: 09/09/25 Dental Screening Dental Screen Date: 01/02/25 HPI 3 month f/u HPI Details 69-year-old male with past medical histo ry of hyperlipidemia, diabetes mellitus, obesity, depression, hypertension and [id number] amputation last seen 06/2025 coming in for follow up. In review of the notes, patient was seen by Urology 07/2025 plan for C IC and follow up at next visit in 6-8 weeks. Presenting for management of multiple chronic conditions. The patient requires lifelong self-catheterization, which was initiated after a urology visit 07/2025. His recent appointment last week the urologist was happy with his progress and will follow up in 4 months. Regarding diabetes, the patient has an upcoming endocrinology appointment on Sunday. Blood sugars were elevated after a recent surgery but have since normalized, and the patient is now taking less insulin than before. More recent hypoglycemic events have been milder, with a blood sugar of 77 a few days ago. Anxiety and depression are reportedly doing well. He has no acute concerns today. [facility], [facility] Medical History HTN (hypertension) Obesity Adult general medical exam Screening for prostate cancer Peripheral vascular disease Diabetes mellitus Hyperlipidemia Surgical History S/P below knee amputation History of colonoscopy History of angioplasty of vein Amputated right leg History of foot surgery Family History Father No problems noted. Mother No problems noted. Social History Housing: Apartment Alcohol intake: never Patient Tobacco Use Status: Former Tobacco user Tobacco use type: Cigarette e-Cigarette/Vaping Use: Never Used Second Hand Smoke Exposure: Yes service: No Current occupational status: retired and disabled Cognitive needs: Yes (Wheelchair) Hearing needs: No Vision needs: Yes Questionnaire Thrive Questionnaire Date Thrive assessed: 04/03/25 I am a: Patient What is your living situation today?: I have a steady place to live Within the past 12 months, did the food you bought not last and you didn't have the money to get more?: Never true Within the past 12 months, did you worry whether your food would run out before you got money to buy more?: Never true Do you have trouble paying for medicines?: No Do you have trouble getting transportation to medical appointments?: No Do you have trouble paying your heating and electricity bill?: No Do you have trouble taking care of your child, family member or friend?: No Do you have trouble with day-to-day activities such as bathing, preparing meals, shopping, managing finances, etc.?: Yes Are you currently unemployed and looking for a job?: Yes Are you interested in more education?: No Please select the resources that you would like help with: None Currently or been in a relationship where the following occur: No concerns rep orted THRIVE Score: 0 AUDIT C Alcohol Use Questionnaire (AUDIT-C) 2. How many drinks containing alcohol do you have on a typical day when you are drinking?: 1 or 2 3. How often do you have six or more drinks on one occasion?: Never Total Score: 0 IVY-7 AMB Questionnaire IVY-7 Date IVY - 7 assessed: 04/03/25 Source: Developed by Drs. William Salmeron, Anupama Mayo, Koby Mccray and colleagues, with an educational jayce from [employer]. Review of Systems Const Denies body aches, Denies chills, Denies fever(s), Denies headache(s) and Denies poor appetite Eyes Reports no additional complaints ENT Denies dizziness and Denies headache(s) Card Denies chest pain, Denies syncope, Denies edema, Denies lightheadedness and Denies dyspnea Resp Denies cough and Denies dyspnea GI Denies abdominal pain, Denies constipation, Denies diarrhea, Denies nausea and Denies vomiting Reports no additional complaints Musc Reports no additional complaints and Denies abnormal gait Skin/Breast Reports system reviewed and no additional complaints, except as documented Neuro Denies abnormal gait, Denies dizziness, Denies syncope and Denies headache(s) Psych Reports no additional complaints Physical exam (Primary Care) Vital Signs: Last Vital Signs Temp 97.5 F 09/09/25 10:33 Pulse 86 09/09/25 10:33 BP 100/60 09/09/25 10:33 Pulse Ox 98 09/09/25 10:33 Oxygen Delivery Method Room Air 09/09/25 10:33 Tobacco/Smoking Status: Tobacco use Status Tobacco use date assessed 09/09/25 09/09/25 10:36 Patient Tobacco Use Status Former Tobacco user 09/09/25 10:36 Tobacco use type Cigarette 09/09/25 10:36 e-Cigarette/Vaping Use Never Used 09/09/25 10:36 Thrive Assessment: Date of Thrive Assessment Date Thrive assessed 04/03/25 12 10:36 Currently or been in a relationship where the following occur: No concerns reported Const General: cooperative, healthy appearing, comfortable and no acute distress HENMT Head: Yes normocephalic Ears: hearing grossly normal bilaterally General nose exam: Normal external nose present Eyes General: appearance normal, both eyes and all related structures Conjunctivae: conjunctivae normal Neck Neck: Yes full ROM and Yes no lymphadenopathy Resp Effort & Inspection: normal respiratory effort Auscultation: clear to auscultation bilaterally, no crackles, no rales, no rhonchi and no wheezes Cardio Rate: regular rate Rhythm: regular rhythm Psych Affect: normal affect Attitude: cooperative Insight: Good insight present (Psych) Judgement: Good judgement present (Psych) Office Procedures Flu Questionnaire Does the patient have a severe egg allergy?: No Does the patient have severe life threatening allergies?: No Does the patient have a fever or illness today?: No Has the patient ever had Guillain-Crumpton Syndrome?: No Has the patient ever had any past reaction to a flu shot?: No Results AMB Hemoglobin A1c AMB Hemoglobin A1c 6.1 % Last Edit by PEÑA Saba on 09/09/25 10:47 Immunizations Fluarix [id number] (PF) 45 mcg (15 mcg x 3)/0.5 mL IM syringe Performing Provider: Alanna John PA-C [facility] Administered by: Marcie Vaca CMA on 09/09/25 11:04 Dose Route Admin Location Dispensed Lot Number Expiration Date NDC Rn Perioperative 0.5 mL IM Left Deltoid 0.5 mL [id number] 04/06/26 [id number] Diagnostic HybridsINE VIS Given Date VIS Provided VIS Publication Date 09/09/25 Single Vaccine 24 Eligibility Eligibility Date Funding Source Not [facility] Eligible 09/09/25 Private Results Reviewed Results Reviewed: Laboratory Last Values Hgb A1c (Clinic) 6.1 % (4.0-6.0) H 09/09/25 10:31 Coding Level of Care Code Est Pt Level 3 (18450) Diagnoses Hypertension, unspecified type I10 Hypertension type: unspecified Hyperlipidemia, unspecified hyperlipidemia type E78.5 Hyperlipidemia type: unspecified Diabetes mellitus E11.9 Status post below-knee amputation of left lower extremity Z89.512 Laterality: left Depression, unspecified depression type F32.9 Depression Type: unspecified Urinary retention R33.9 Assessment & Plan Assessment & Plan (1) Hypertension: Code(s): I10 - Essential (primary) hypertension Category: Medical Qualifiers: Hypertension type: unspecified Qualified Code(s): I10 - Essential (primary) hypertension Plan: Continue on current blood pressure medication. Avoid salt intake and encourage healthy diet and regular exercise. (2) Hyperlipidemia: Code(s): E78.5 - Hyperlipidemia, unspecified Category: Medical Qualifiers: Hyperlipidemia type: unspecified Qualified Code(s): E78.5 - Hyperlipidemia, unspecified Plan: Avoid foods that are high in cholesterol such as red meat, fried foods, eggs and baked goods. Triglyceride goal of less than 150 and LDL goal of less than 100. Patient is started on atorvastatin at last visit but did not take this medication. His last LDL 63 was within normal limits we will continue to monitor at this time. (3) Diabetes mellitus: Code(s): E11.9 - Type 2 diabetes mellitus without complications Category: Medical Plan: Decrease the amount of carbohydrates such as pasta, bread, rice, and potatoes and limit the amount of sweets. Although fruits are generally healthy they should be eaten in moderation as they are still high in sugar. Hemoglobin A1c goal of less than 7%. His A1c in at this visit 6.1% continue on current medication regimen and continue to follow with endocrinology in [place]. He has been having occasional lows and he is cutting back on his insulin Endo is aware and has appointment on Sunday. (4) S/P below knee amputation: Code(s): Z89.519 - Acquired absence of unspecified leg below knee Category: Surgical Qualifiers: Laterality: left Qualified Code(s): Z89.512 - Acquired absence of left leg below knee Plan: Recently seen by [facility] vascular surgery 06/10/2025 he was provided with a stump field application engineer and advised to follow up as needed. (5) Depression: Code(s): F32.9 - Major depressive disorder, single episode, unspecified Category: Medical Qualifiers: Depression Type: unspecified Qualified Code(s): F32.9 - Major depressive disorder, single episode, unspecified Plan: Feels good on the Trazodone at this time. (6) Urinary retention: Code(s): R33.9 - Retention of urine, unspecified Category: Medical Plan: He will continue to follow with [facility] for urinary retention. He has recently started self-cath and has been doing well with this process. He had recent follow with urology and they are happy with his progress he will see them back in 4 months. Plan I reviewed the patient's recent lab results, noting that the HbA1c of 6.1% and cholesterol levels (LDL 62) are both excellent. We discussed that given the well-controlled cholesterol and the patient's history of severe diarrhea with atorvastatin, we will continue to hold this medication. I advised the patient on the risk of hypoglycemia and noted that the screen tender helper will likely need to decrease the insulin dose at the upcoming appointment. We discussed the new self-catheterization routine, and I advised the patient to inform me or the urologist if any issues like burning, pain, or rashes develop. The patient consented to receive the flu shot today. As all health issues are stable, I recommended extending the follow-up interval to six months, to which the patient agreed. This note was constructed using voice recognition software. While every effort has been made to ensure accuracy and grain broker and market operator, still areas may have been included sometimes these areas may affect the content or meeting of the given symptoms. Total time spent caring for the patient today was Meghan minutes. This includes time spent before the visit reviewing the chart, time spent during the visit, and time spent after the visit and documentation. Patient was informed and verbally consented to the use of an ambient scribe for clinic note documentation during this visit. Orders: Orders AMB Hemoglobin A1c Today E11.9 - Type 2 diabetes mellitus without complications Lipid Panel 6 Months E78.00 - Pure hypercholesterolemia, unspecified Influenza [id number] Immunization Today Z23 - Encounter for immunization Hemoglobin A1c 6 Months E11.65 - Type 2 diabetes mellitus with hyperglycemia Comprehensive Met. Panel 6 Months Z00.00 - Encounter for general adult medical examination without abnormal findings Medications: Discontinued atorvastatin (Lipitor) Discontinued Reason: Patient no longer taking 10 mg PO BEDTIME 90 tabs 0RF
[2025-09-09 10:33] VITALS: BP 100/60; PULSE 86; TEMP 36.4; O2SAT 98
--- OUTSIDE RECORDS SUMMARY | 2025-09-09 11:52 | XMS_ITS | Encounter Summary ---
Author Organization [facility] Address [address] [place] [address] Care Team Providers Care Ribbon Weaver Name Role Phone Abilio Chand MD Primary Care Provider [phone] Encounter Details Date Type Department Care Team (Latest Contact Info) Description 05/26/2025 Lab Requisition [facility] - Main Lab [address] [facility] [place] [id number] Tremayne Collazo MD [address] [place] [id number] Type 2 diabetes mellitus without complications (CMS/HCC [...] EDT Type 2 diabetes mellitus without complications ([facility] V24, [facility] V28) Peripheral vascular disease, unspecified ([facility] V24) documented in this encounter Results * (ABNORMAL) Hemoglobin A1c (05/26/2025 5:07 AM EDT) Pathologist [facility] Hemoglobin A1C 6.8(H) <6.5 % LAB CHEMISTRY METHOD 05/26/2025 1:31 PM EDT [facility] Mean Bld Glu Estim. 148 mg/dL LAB CHEMISTRY METHOD 05/26/2025 1:31 PM EDT [facility] Blood Venous blood specimen / Unknown Venipuncture / Unknown 05/26/2025 5:07 AM EDT 05/26/2025 7:33 AM EDT us Tremayne Collazo MD LAB BLOOD ORDERABLES Final Resu lt [facility] [address] [place] [address], [place] [phone] * (ABNORMAL) Basic metabolic panel (05/26/2025 5:07 AM EDT) [facility] Sodium 142 133 - 145 mmol/L LAB CHEMISTRY METHOD 05/26/2025 8:42 AM EDT [facility] Potassium 4.2 3.5 - 5.5 mmol/L LAB CHEMISTRY METHOD 05/26/2025 8:42 AM EDT [facility] Chloride 107 96 - 110 mmol/L LAB CHEMISTRY METHOD 05/26/2025 8:42 AM EDT [facility] CO2 31 21 - 32 mmol/L LAB CHEMISTRY METHOD 05/26/2025 8:42 AM EDT [facility] Anion Gap 4 3 - 11 LAB CHEMISTRY METHOD 05/26/2025 8:42 AM EDT [facility] Glucose 56(L) 70 - 100 mg/dL LAB CHEMISTRY METHOD 05/26/2025 8:42 AM EDT [facility] BUN 13 5 - 25 mg/dL LAB CHEMISTRY METHOD 05/26/2025 8:42 AM EDT [facility] Comment:Results verified by repeat testing Creatinine 0.60(L) 0.70 - 1.30 mg/dL LAB CHEMISTRY METHOD 05/26/2025 8:42 AM EDT [facility] eGFR 103 >=60 mL/min/1. 73m2 LAB CHEMISTRY METHOD 05/26/2025 8:42 AM EDT [facility] Comment:Calculation based on the Chronic Kidney Disease Epidemiology Collaboration (CKD-EPI) equation refit without adjustment for race. BUN/Creatinine Ratio 21.7 LAB CHEMISTRY METHOD 05/26/2025 8:42 AM [facility] Calcium 7.9(L) 8.5 - 10.5 mg/dL LAB CHEMISTRY METHOD 05/26/2025 8:42 AM T [facility] Blood Venous blood specimen / Unknown Venipuncture / Unknown 05/26/2025 5:07 AM EDT 05/26/2025 7:33 AM EDT us Tremayne Collazo MD LAB BLOOD ORDERABLES Final Resu lt [facility] [address] [place] [address], * (ABNORMAL) Complete blood count (05/26/2025 5:07 AM EDT) WBC 6.2 4.8 - 10.8 K/mcL LAB HEMETOLOGY METHOD 05/26/2025 8:07 AM EDT [facility] RBC 3.50(L) 4.50 - 5.50 M/mcL LAB HEMETOLOGY METHOD 05/26/2025 8:07 AM EDT [facility] Hemoglobin 10.0(L) 13.5 - 17.5 g/dL LAB HEMETOLOGY METHOD 05/26/2025 8:07 AM EDT [facility] Hematocrit 33.6(L) 42.0 - 54.0 % LAB HEMETOLOGY METHOD 05/26/2025 8:07 AM EDT [facility] MCV 95.5 79.0 - 98.0 FL LAB HEMETOLOGY METHOD 05/26/2025 8:07 AM EDT [facility] MCH 28.4 27.0 - 32.0 pcg LAB HEMETOLOGY METHOD 05/26/2025 8:07 AM EDT [facility] MCHC 29.8(L) 32.0 - 37.0 g/dL LAB HEMETOLOGY METHOD 05/26/2025 8:07 AM EDT [facility] RDW 15.0 11.0 - 15.0 % LAB HEMETOLOGY METHOD 05/26/2025 8:07 AM EDT [facility] Platelets 322 130 - 400 K/mcL LAB HEMETOLOGY METHOD 05/26/2025 8:07 AM EDT [facility] MPV 9.5 7.0 - 11.0 FL LAB HEMETOLOGY METHOD 05/26/2025 8:07 AM EDT [facility] NRBC 0.0 <1.0 % LAB HEMETOLOGY METHOD 05/26/2025 8:07 AM EDT [facility] NRBC Absolute 0.00 <0.10 K/mcL LAB HEMETOLOGY METHOD 05/26/2025 8:07 AM EDT [facility] Blood Venous blood specimen / Unknown Venipuncture / Unknown 05/26/2025 5:07 AM EDT 05/26/2025 7:33 AM EDT us Tremayne Collazo MD LAB BLOOD ORDERABLES Final Resu lt [facility] [address] [place] [address], documented in this encounter Visit Diagnoses Diagnosis Type 2 diabetes mellitus without complications (CMS/HCC V24, CMS/HCC V28) Peripheral vascular disease, unspecified (CMS/HCC V24) Peripheral vascular disease, unspecified documented in this encounter Care Teams Ribbon Weaver Relationship Specialty Start Date End Date Abilio Chand MD [address] [place] [address] PCP - General Internal Medicine 10/24/24 documented as of this encounter
--- OUTSIDE RECORDS SUMMARY | 2025-09-09 11:52 | XMS_ITS | Encounter Summary ---
Author Organization [facility] Address [address] [place] [address] Care Team Providers Care Burner Tender Name Role Phone Abilio Chand MD Primary Care Provider Encounter Details Date Type Department Care Team (Late st Contact Info) Description 11/25/2024 Lab Requisition [facility] - Main Lab [address] [place] [phone] Tremayne Collazo MD [address] [place] [id number] Vitamin D deficiency, unspecified Social History Tobacco [...] LAB CHEMISTRY METHOD 11/26/2024 12:00 PM EST [facility] Blood Venous blood specimen / Unknown Venipuncture / Unknown 11/26/2024 6:48 AM EST 11/26/2024 12:00 PM EST us Tremayne Collazo MD LAB BLOOD ORDERABLES [facility] [address] [place] [address], documented in this encounter Visit Diagnoses Diagnosis Vitamin D deficiency, unspecified documented in this encounter Care Teams Burner Tender Relationship Specialty Start Date End Date Abilio Chand MD [address] [place] [address] PCP - General Internal Medicine 10/24/24 documented as of this encounter
--- OUTSIDE RECORDS SUMMARY | 2025-09-09 11:52 | XMS_ITS | Encounter Summary ---
Author Organization [facility] Address [address] [place] [address] Care Team Providers Care Supervisor Labor Gang Name Role Phone Abilio Chand MD Primary Care Provider [phone] Encounter Details Date Type Department Care Team (Late st Contact Info) Description 10/30/2024 Lab Requisition [facility] - Main Lab [address] [place] [phone] Tremayne Collazo MD [address] [place] [phone] Encounter for other specified aftercare Social History [...] LAB CHEMISTRY METHOD 10/30/2024 9:16 AM EST [facility] Potassium 4.1 3.5 - 5.5 mmol/L LAB CHEMISTRY METHOD 10/30/2024 9:16 AM [facility] Chloride 102 96 - 110 mmol/L LAB CHEMISTRY METHOD 10/30/2024 9:16 AM [facility] CO2 27 21 - 32 mmol/L LAB CHEMISTRY METHOD 10/30/2024 9:16 AM [facility] Anion Gap 6 3 - 11 LAB CHEMISTRY METHOD 10/30/2024 9:16 AM [facility] Glucose 79 70 - 100 mg/dL LAB CHEMISTRY METHOD 10/30/2024 9:16 AM [facility] BUN 38(H) 5 - 25 mg/dL LAB CHEMISTRY METHOD 10/30/2024 9:16 AM [facility] Creatinine 0.88 0.70 - 1.30 mg/dL LAB CHEMISTRY METHOD 10/30/2024 9:16 AM [facility] eGFR 92 >=60 mL/min/1. 73m2 LAB CHEMISTRY METHOD 10/30/2024 9:16 AM [facility] Comment:Calculation based on the Chronic Kidney Disease Epidemiology Collaboration (CKD-EPI) equation refit without adjustment for race. BUN/Creatinine Ratio 43.2 LAB CHEMISTRY METHOD 10/30/2024 9:16 AM [facility] Calcium 7.2(L) 8.5 - 10.5 mg/dL LAB CHEMISTRY METHOD 10/30/2024 9:16 AM [facility] Blood Venous blood specimen / Unknown Venipuncture / Unknown 10/30/2024 4:57 AM EST 10/30/2024 8:32 AM EST us Tremayne Collazo MD LAB BLOOD ORDERABLES Final Resu lt [facility] [address] [place] [address], [place] [phone] * (ABNORMAL) Complete blood count (10/30/2024 4:57 AM EST) [facility] WBC 5.2 4.8 - 10.8 K/mcL LAB HEMETOLOGY METHOD 10/30/2024 9:04 AM [facility] RBC 2.60(L) 4.50 - 5.50 M/mcL LAB HEMETOLOGY METHOD 10/30/2024 9:04 AM [facility] Hemoglobin 7.5(L) 13.5 - 17.5 g/dL LAB HEMETOLOGY METHOD 10/30/2024 9:04 AM [facility] Hematocrit 24.7(L) 42.0 - 54.0 % LAB HEMETOLOGY METHOD 10/30/2024 9:04 AM [facility] MCV 93.9 79.0 - 98.0 FL LAB HEMETOLOGY METHOD 10/30/2024 9:04 AM [facility] MCH 28.5 27.0 - 32.0 pcg LAB HEMETOLOGY METHOD 10/30/2024 9:04 AM [facility] MCHC 30.4(L) 32.0 - 37.0 g/dL LAB HEMETOLOGY METHOD 10/30/2024 9:04 AM [facility] RDW 14.3 11.0 - 15.0 % LAB HEMETOLOGY METHOD 10/30/2024 9:04 AM [facility] Platelets 397 130 - 400 K/mcL LAB HEMETOLOGY METHOD 10/30/2024 9:04 AM [facility] MPV 9.1 7.0 - 11.0 FL LAB HEMETOLOGY METHOD 10/30/2024 9:04 AM [facility] NRBC 0.0 <1.0 % LAB HEMETOLOGY METHOD 10/30/2024 9:04 AM [facility] NRBC Absolute 0.00 <0.10 K/mcL LAB HEMETOLOGY METHOD 10/30/2024 9:04 AM EST [facility] Blood Venous blood specimen / Unknown Venipuncture / Unknown 10/30/2024 4:57 AM EST 10/30/2024 8:32 AM EST us Tremayne Collazo MD LAB BLOOD ORDERABLES Final Resu lt [facility] [address] [place] [address], documented in this encounter Visit Diagnoses Diagnosis Encounter for other specified aftercare documented in this encounter Care Teams Supervisor Labor Gang Relationship Specialty Start Date End Date Abilio Chand MD [address] [place] [address] PCP - General Internal Medicine 10/24/24 documented as of this encounter
--- OUTSIDE RECORDS SUMMARY | 2025-09-09 11:52 | XMS_ITS | Clinical Summary ---
Author Organization [facility] Address [address] [place] [address] Phone Care Team Providers Care In Store Marketing Associate Name Role Phone Abilio Chand MD Primary Care Provider [phone] Allergies No known active allergies Social History Tobacco Use Types Packs/Day Years [...] DTaP,Tdap,and Td Vaccines (1 - Tdap) 1972 RSV Immunization Adult Patients (1 - Risk 50-74 years 1-dose series) 2003 Zoster Vaccines (1 of 2) 2003 Pneumococcal Vaccine: 50+ Years (2 of 2 - PCV) 05/26/2022 05/26/2021, 01/04/2017, 12/20/2015 Abdominal Aortic Aneurysm (AAA) Screen 09/10/2022 Falls Risk Assessment 09/10/2022 Hepatitis C Screening 09/10/2022 Medicare Annual Wellness Visit 09/10/2022 Social Influencers of Health Screening 09/10/2022 Depression Screening 10/08/2024 Diabetes: Annual Urine Albumin-Creatinine Ratio (uACR) 02/07/2025 02/08/2024 COVID-19 Vaccine ( season) 2025 06/24/2024, 08/23/2023, 04/04/2023, Additional history exists Influenza Vaccine (#1) 2025 , 08/23/2023, 09/12/2021, Additional history exists Diabetes: Blood Sugar Control Test (HGBA1C) 11/26/2025 05/26/2025, 10/29/2024 Diabetes: Annual GFR (Glomerular Filtration Rate) 07/09/2026 07/09/2025, 05/26/2025, 10/30/2024, Additional history exists Hypertension/CHF/CAD Annual BMP Blood Test 07/09/2026 07/09/2025, 05/26/2025, 10/30/2024, Additional history exists Cholesterol Screening (Lipid Panel) 07/09/2030 07/09/2025, 10/29/2024 HIB Vaccines Aged Out No longer [...] Procedure Name Priority Date/Time Associated Diagnosis Comments PROSTATE SPECIFIC ANTIGEN DIAGNOSTIC Routine 07/13/2025 9:32 AM EDT Retention of urine, unspecified CBC WITH AUTO DIFFERENTIAL Routine 07/09/2025 10:54 AM EDT Screening for malnutrition Diabetes mellitus ([facility] V24, [facility] V28) Essential hypertension, malignant Pure hypercholesterolemia Routine general medical examination at a health care facility Type II or unspecified type diabetes mellitus with renal manifestations, 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.42) ([facility] V24, [facility] V28) VITAMIN B12 Routine 07/09/2025 10:54 AM EDT Screening for malnutrition Diabetes mellitus ([facility] V24, [facility] V28) Essential hypertension, malignant Pure hypercholesterolemia Routine general medical examination at a health care facility Type II or unspecified type diabetes mellitus with renal manifestations, 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.42) ([facility] V24, [facility] V28) FOLATE Routine 07/09/2025 10:54 AM EDT Screening for malnutrition Diabetes mellitus ([facility] V24, [facility] V28) Essential hypertension, malignant Pure hypercholesterolemia Routine general medical examination at a health care facility Type II or unspecified type diabetes mellitus with renal manifestations, 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.42) ([facility] V24, [facility] V28) LIPID PANEL WITH REFLEX TO DIRECT LDL Routine 07/09/2025 10:54 AM EDT Screening for malnutrition Diabetes mellitus ([facility] V24, [facility] V28) Essential hypertension, malignant Pure hypercholesterolemia Routine general medical examination at a health care facility Type II or unspecified type diabetes mellitus with renal manifestations, 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.42) ([facility] V24, [facility] V28) COMPREHENSIVE METABOLIC PANEL Routine 07/09/2025 10:54 AM EDT Screening for malnutrition Diabetes mellitus ([facility] V24, [facility] V28) Essential hypertension, malignant Pure hypercholesterolemia Routine general medical examination at a health care facility Type II or unspecified type diabetes mellitus with renal manifestations, 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.42) ([facility] V24, [facility] V28) CBC AND DIFFERENTIAL Routine 07/09/2025 10:54 AM EDT Screening for malnutrition Diabetes mellitus ([facility] V24, [facility] V28) Essential hypertension, malignant Pure hypercholesterolemia Routine general medical examination at a [facility] Type II or unspecified type diabetes mellitus with renal manifestations, 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.42) ([facility] V24, [facility] V28) THYROID STIMULATING HORMONE WITH REFLEX TO FREE T4 AND FREE T3 Routine 07/09/2025 10:54 AM EDT Screening for malnutrition Diabetes mellitus ([facility] V24, [facility] V28) Essential hypertension, malignant Pure hypercholesterolemia Routine general medical examination at a [facility] Type II or unspecified type diabetes mellitus with renal manifestations, 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.42) ([facility] V24, [facility] V28) HEMOGLOBIN A1C Routine 05/26/2025 5:07 AM EDT Type 2 diabetes mellitus without complications ([facility] V24, [facility] V28) Peripheral vascular disease, unspecified ([facility] V24) from Last 3 Months or Most Recently Relevant to Health Maintenance Results * Prostate specific antigen diagnostic (07/13/2025 9:32 AM EDT) PSA 2.54 0.00 - 4.00 ng/mL LAB CHEMISTRY METHOD 07/13/2025 11:09 AM EDT [facility] Blood Venous blood specimen / Unknown Venipuncture / Unknown 07/13/2025 9:32 AM EDT 07/13/2025 9:32 AM EDT Narrative [facility] - 07/13/2025 11:09 AM EDT The Siemens Advia Centaur Chemiluminescent Immunoassay is used. Results obtained with different assay methods or kits cannot be used interchangeably. Results cannot be interpreted as absolute evidence of the presence or absence of malignant disease. us Angel HUA LAB BLOOD ORDERABLES Final Result Performing Organization Address City/[facility]/ZIP Co de Phone Number [facility] [address] [place] [address], [place] [phone] * Thyroid stimulating hormone with reflex to free t4 and free t3 (07/09/2025 10:54 AM EDT) Pathologist [facility] TSH 1.36 0.40 - 4.00 mcIU/mL LAB CHEMISTRY METHOD 07/09/2025 4:24 PM EDT [facility] Blood Venous blood specimen / Unknown Venipuncture / Unknown 07/09/2025 10:54 AM EDT 07/09/2025 11:00 AM EDT Alanna HUA LAB BLOOD ORDERABLES Final Re sult Performing Organization Address City/[facility]/ZIP Co de Phone Number [facility] [address] [place] [address], [place] [phone] * Lipid panel with reflex to direct LDL (07/09/2025 10:54 AM EDT) [facility] Cholesterol 121 0 - 200 mg/dL LAB CHEMISTRY METHOD 07/09/2025 3:57 PM EDT [facility] Triglycerides 83 0 - 150 mg/dL LAB CHEMISTRY METHOD 07/09/2025 3:57 PM EDT [facility] HDL 42 >=40 mg/dL LAB CHEMISTRY METHOD 07/09/2025 3:57 PM EDT [facility] LDL Calculated 62 0 - 100 mg/dL LAB CHEMISTRY METHOD 07/09/2025 3:57 PM EDT [facility] Comment:Estimated LDL Calcul ated using equation: Total cholesterol - HDL cholesterol - (Triglycerides/5) VLDL Cholesterol Laron 16.6 mg/dL LAB CHEMISTRY METHOD 07/09/2025 3:57 PM EDT [facility] Non HDL Chol. (LDL+VLDL) 79 <145 mg/dL LAB CHEMISTRY METHOD 07/09/2025 3:57 PM EDT [facility] Chol/HDL Ratio 2.9 0.0 - 4.4 LAB CHEMISTRY METHOD 07/09/2025 3:57 PM EDT [facility] Blood Venous blood specimen / Unknown Venipuncture / Unknown 07/09/2025 10:54 AM EDT 07/09/2025 11:00 AM EDT Alanna HUA LAB BLOOD ORDERABLES Final Re sult [facility] [address] [place] [address], * (ABNORMAL) CBC auto differential (07/09/2025 10:54 AM EDT) WBC 5.9 4.8 - 10.8 K/mcL LAB HEMETOLOGY METHOD 07/09/2025 2:16 PM EDT [facility] RBC 4.60 4.50 - 5.50 M/mcL LAB HEMETOLOGY METHOD 07/09/2025 2:16 PM EDT [facility] Hemoglobin 12.7(L) 13.5 - 17.5 g/dL LAB HEMETOLOGY METHOD 07/09/2025 2:16 PM EDT [facility] Hematocrit 41.2(L) 42.0 - 54.0 % LAB HEMETOLOGY METHOD 07/09/2025 2:16 PM EDT [facility] MCV 90.0 79.0 - 98.0 FL LAB HEMETOLOGY METHOD 07/09/2025 2:16 PM EDT [facility] MCH 27.7 27.0 - 32.0 pcg LAB HEMETOLOGY METHOD 07/09/2025 2:16 PM EDT [facility] MCHC 30.8(L) 32.0 - 37.0 g/dL LAB HEMETOLOGY METHOD 07/09/2025 2:16 PM EDT [facility] RDW 14.9 11.0 - 15.0 % LAB HEMETOLOGY METHOD 07/09/2025 2:16 PM EDT [facility] Platelets 314 130 - 400 K/mcL LAB HEMETOLOGY METHOD 07/09/2025 2:16 PM EDT [facility] MPV 9.2 7.0 - 11.0 FL LAB HEMETOLOGY METHOD 07/09/2025 2:16 PM EDT [facility] NRBC 0.0 <1.0 % LAB HEMETOLOGY METHOD 07/09/2025 2:16 PM EDT [facility] NRBC Absolute 0.00 <0.10 K/mcL LAB HEMETOLOGY METHOD 07/09/2025 2:16 PM [facility] Neutrophils Relative 70.0 % LAB HEMETOLOGY METHOD 07/09/2025 2:16 PM T [facility] Lymphocytes Relative 15.0 % LAB HEMETOLOGY METHOD 07/09/2025 2:16 PM T [facility] Monocytes Relative 10.3 % LAB HEMETOLOGY METHOD 07/09/2025 2:16 PM [facility] Eosinophils Relative 3.9 % LAB HEMETOLOGY METHOD 07/09/2025 2:16 PM T [facility] Basophils Relative 0.5 % LAB HEMETOLOGY METHOD 07/09/2025 2:16 PM EDT [facility] Immature Granulocytes Relative 0.3 % LAB HEMETOLOGY METHOD 07/09/2025 2:16 PM EDT [facility] Neutrophils Absolute 4.16 1.50 - 7.00 K/mcL LAB HEMETOLOGY METHOD 07/09/2025 2:16 PM EDT [facility] Lymphocytes Absolute 0.89(L) 1.00 - 5.00 K/mcL LAB HEMETOLOGY METHOD 07/09/2025 2:16 PM EDT [facility] Monocytes Absolute 0.61 0.20 - 1.00 K/mcL LAB HEMETOLOGY METHOD 07/09/2025 2:16 PM EDT [facility] Eosinophils Absolute 0.23 0.00 - 0.50 K/[facility] LAB HEMETOLOGY METHOD 07/09/2025 2:16 PM EDT [facility] Basophils Absolute 0.03 0.00 - 0.20 K/[facility] LAB HEMETOLOGY METHOD 07/09/2025 2:16 PM EDT [facility] Immature Granulocytes Absolute 0.02 0.00 - 0.03 K/[facility] LAB HEMETOLOGY METHOD 07/09/2025 2:16 PM EDT [facility] Blood Venous blood specimen / Unknown Venipuncture / Unknown 07/09/2025 10:54 AM EDT 07/09/2025 11:00 AM EDT us Alanna HUA LAB BLOOD ORDERABLES Final Re sult [facility] [address] [place] [address], [place] [phone] * Folate (07/09/2025 10:54 AM EDT) Folate 10.2 2.8 - 17.0 ng/ml LAB CHEMISTRY METHOD 07/09/2025 3:57 PM EDT [facility] Blood Venous blood specimen / Unknown Venipuncture / Unknown 07/09/2025 10:54 AM EDT 07/09/2025 11:00 AM EDT us Alanna HUA LAB BLOOD ORDERABLES Final Re sult [facility] [address] [place] [address], [place] [phone] * Vitamin B12 (07/09/2025 10:54 AM EDT) Pathologist [facility] Vitamin B-12 716 250 - 900 pcg/mL LAB CHEMISTRY METHOD 07/09/2025 3:57 PM [facility] Blood Venous blood specimen / Unknown Venipuncture / Unknown 07/09/2025 10:54 AM EDT 07/09/2025 11:00 AM EDT Alanna HUA LAB BLOOD ORDERABLES Final Re sult [facility] [address] [place] [address], [place] [phone] * (ABNORMAL) Comprehensive metabolic panel (07/09/2025 10:54 AM EDT) Pathologist [facility] Sodium 141 133 - 145 mmol/L LAB CHEMISTRY METHOD 07/09/2025 3:57 PM [facility] Potassium 4.2 3.5 - 5.5 mmol/L LAB CHEMISTRY METHOD 07/09/2025 3:57 PM [facility] Chloride 108 96 - 110 mmol/L LAB CHEMISTRY METHOD 07/09/2025 3:57 PM [facility] CO2 28 21 - 32 mmol/L LAB CHEMISTRY METHOD 07/09/2025 3:57 PM [facility] Anion Gap 5 3 - 11 LAB CHEMISTRY METHOD 07/09/2025 3:57 PM [facility] Glucose 52(L) 70 - 100 mg/dL LAB CHEMISTRY METHOD 07/09/2025 3:57 PM [facility] BUN 22 5 - 25 mg/dL LAB CHEMISTRY METHOD 07/09/2025 3:57 PM [facility] Creatinine 0.46(L) 0.70 - 1.30 mg/dL LAB CHEMISTRY METHOD 07/09/2025 3:57 PM EDT [facility] eGFR 112 >=60 mL/min/1. 73m2 LAB CHEMISTRY METHOD 07/09/2025 3:57 PM [facility] Comment:Calculation based on the Chronic Kidney Disease Epidemiology Collaboration (CKD-EPI) equation refit without adjustment for race. BUN/Creatinine Ratio 47.8 LAB CHEMISTRY METHOD 07/09/2025 3:57 PM [facility] Calcium 8.8 8.5 - 10.5 mg/dL LAB CHEMISTRY METHOD 07/09/2025 3:57 PM [facility] AST (SGOT) 13 10 - 42 unit/L LAB CHEMISTRY METHOD 07/09/2025 3:57 PM [facility] ALT (SGPT) 22 10 - 60 unit/L LAB CHEMISTRY METHOD 07/09/2025 3:57 PM [facility] Alkaline Phosphatase 71 42 - 121 unit/L LAB CHEMISTRY METHOD 07/09/2025 3:57 PM [facility] Total Protein 5.9(L) 6.0 - 8.0 g/dL LAB CHEMISTRY METHOD 07/09/2025 3:57 PM [facility] Albumin 2.9(L) 3.2 - 5.0 g/dL LAB CHEMISTRY METHOD 07/09/2025 3:57 PM [facility] Total Bilirubin 0.2 0.0 - 1.4 mg/dL LAB CHEMISTRY METHOD 07/09/2025 3:57 PM [facility] Blood Venous blood specimen / Unknown Venipuncture / Unknown 07/09/2025 10:54 AM EDT 07/09/2025 11:00 AM EDT Alanna HUA LAB BLOOD ORDERABLES Final Re sult [facility] [address] [place] [address], * (ABNORMAL) Hemoglobin A1c (05/26/2025 5:07 AM EDT) Hemoglobin A1C 6.8(H) <6.5 % LAB CHEMISTRY METHOD 05/26/2025 1:31 PM EDT [facility] Mean Bld Glu Estim. 148 mg/dL LAB CHEMISTRY METHOD 05/26/2025 1:31 PM EDT [facility] Blood Venous blood specimen / Unknown Venipuncture / Unknown 05/26/2025 5:07 AM EDT 05/26/2025 7:33 AM EDT us Tremayne Collazo MD LAB BLOOD ORDERABLES Final Resu lt [facility]) [facility] [address] [place] [address], from Last 3 Months or Most Recently Relevant to Health Maintenance Insurance [employer] MEDICARE [place]ICAID - [place] Care Teams In Store Marketing Associate Relationship Specialty Start Date End Date Abilio Chand MD [address] [place] [address] PCP - General Internal Medicine 10/24/24
--- OUTSIDE RECORDS SUMMARY | 2025-09-09 11:52 | XMS_ITS | Encounter Summary ---
Author Organization [facility] Address [address] [place] [address] Care Team Providers Care Health Education Director Name Role Phone Abilio Chand MD Primary Care Provider [phone] Encounter Details Date Type Department Care Team (Latest Contact Info) Description 10/29/2024 Lab Requisition [facility] - Main Lab [address] [facility] [phone] Tremayne Collazo MD [address] [place] [id number] Peripheral vascular disease, unspecified (CMS/HCC V24); Type [...] K/mcL LAB HEMETOLOGY METHOD 10/29/2024 10:37 AM [facility] RBC 3.30(L) 4.50 - 5.50 M/mcL LAB HEMETOLOGY METHOD 10/29/2024 10:37 AM [facility] Hemoglobin 9.5(L) 13.5 - 17.5 g/dL LAB HEMETOLOGY METHOD 10/29/2024 10:37 AM [facility] LAB Hematocrit 31.3(L) 42.0 - 54.0 % LAB HEMETOLOGY METHOD 10/29/2024 10:37 AM [facility] LAB MCV 96.3 79.0 - 98.0 FL LAB HEMETOLOGY METHOD 10/29/2024 10:37 AM [facility] LAB MCH 29.2 27.0 - 32.0 pcg LAB HEMETOLOGY METHOD 10/29/2024 10:37 AM [facility] LAB MCHC 30.4(L) 32.0 - 37.0 g/dL LAB HEMETOLOGY METHOD 10/29/2024 10:37 AM [facility] LAB RDW 14.1 11.0 - 15.0 % LAB HEMETOLOGY METHOD 10/29/2024 10:37 AM [facility] LAB Platelets 479(H) 130 - 400 K/mcL LAB HEMETOLOGY METHOD 10/29/2024 10:37 AM [facility] LAB MPV 9.1 7.0 - 11.0 FL LAB HEMETOLOGY METHOD 10/29/2024 10:37 AM [facility] LAB NRBC 0.0 <1.0 % LAB HEMETOLOGY METHOD 10/29/2024 10:37 AM [facility] LAB NRBC Absolute 0.00 <0.10 K/mcL LAB HEMETOLOGY METHOD 10/29/2024 10:37 AM [facility] LAB Neutrophils Relative 93.0 % LAB HEMETOLOGY METHOD 10/29/2024 10:37 AM [facility] Lymphocytes Relative 1.0 % LAB HEMETOLOGY METHOD 10/29/2024 10:37 AM [facility] Monocytes Relative 4.5 % LAB HEMETOLOGY METHOD 10/29/2024 10:37 AM [facility] Eosinophils Relative 0.4 % LAB HEMETOLOGY METHOD 10/29/2024 10:37 AM [facility] Basophils Relative 0.1 % LAB HEMETOLOGY METHOD 10/29/2024 10:37 AM [facility] Immature Granulocytes Relative 1.0 % LAB HEMETOLOGY METHOD 10/29/2024 10:37 AM [facility] Neutrophils Absolute 12.81(H) 1.50 - 7.00 K/mcL LAB HEMETOLOGY METHOD 10/29/2024 10:37 AM [facility] Lymphocytes Absolute 0.14(L) 1.00 - 5.00 K/mcL LAB HEMETOLOGY METHOD 10/29/2024 10:37 AM [facility] Monocytes Absolute 0.62 0.20 - 1.00 K/mcL LAB HEMETOLOGY METHOD 10/29/2024 10:37 AM [facility] Eosinophils Absolute 0.06 0.00 - 0.50 K/mcL LAB HEMETOLOGY METHOD 10/29/2024 10:37 AM [facility] Basophils Absolute 0.02 0.00 - 0.20 K/mcL LAB HEMETOLOGY METHOD 10/29/2024 10:37 AM [facility] LAB Immature Granulocytes Absolute 0.14(H) 0.00 - 0.03 K/[facility] LAB HEMETOLOGY METHOD 10/29/2024 10:37 AM [facility] Blood Venous blood specimen / Unknown Venipuncture / Unknown 10/29/2024 7:09 AM EST 10/29/2024 10:19 AM EST us Tremayne Collazo MD LAB BLOOD ORDERABLES Final Resu lt [facility] [address] [place] [address], [place] [phone] * (ABNORMAL) Lipid panel with reflex to direct LDL (10/29/2024 7:09 AM EST) Cholesterol 118 0 - 200 mg/dL LAB CHEMISTRY METHOD 10/29/2024 12:24 PM [facility] Triglycerides 81 0 - 150 mg/dL LAB CHEMISTRY METHOD 10/29/2024 12:24 PM [facility] HDL 31(L) >=40 mg/dL LAB CHEMISTRY METHOD 10/29/2024 12:24 PM [facility] LDL Calculated 71 0 - 100 mg/dL LAB CHEMISTRY METHOD 10/29/2024 12:24 PM [facility] VLDL Cholesterol Laron 16.2 mg/dL LAB CHEMISTRY METHOD 10/29/2024 12:24 PM [facility] Non HDL Chol. (LDL+VLDL) 87 <145 mg/dL LAB CHEMISTRY METHOD 10/29/2024 12:24 PM [facility] Chol/HDL Ratio 3.8 0.0 - 4.4 LAB CHEMISTRY METHOD 10/29/2024 12:24 PM [facility] Blood Venous blood specimen / Unknown Venipuncture / Unknown 10/29/2024 7:09 AM EST 10/29/2024 10:19 AM EST us Tremayne Collazo MD LAB BLOOD ORDERABLES Final Resu lt Performing Organization Address City/[facility]/ZIP Co de Phone Number [facility] [address] [place] [address], [place] [phone] * (ABNORMAL) Vitamin D 25 hydroxy (10/29/2024 7:09 AM EST) [facility] Vit D, 25-Hydroxy 16.2(L) 30.0 - 80.0 ng/mL LAB CHEMISTRY METHOD 10/29/2024 11:58 AM EST [facility] Blood Venous blood specimen / Unknown Venipuncture / Unknown 10/29/2024 7:09 AM EST 10/29/2024 10:19 AM EST us Tremayne Collazo MD LAB BLOOD ORDERABLES Final Resu lt Performing Organization Address City/[facility]/ZIP Co de Phone Number [facility] [address] [place] [address], [place] [phone] * Vitamin B12 (10/29/2024 7:09 AM EST) [facility] Vitamin B-12 860 250 - 900 pcg/mL LAB CHEMISTRY METHOD 10/29/2024 12:24 PM EST [facility] Blood Venous blood specimen / Unknown Venipuncture / Unknown 10/29/2024 7:09 AM EST 10/29/2024 10:19 AM EST us Tremayne Collazo MD LAB BLOOD ORDERABLES Final Resu lt Performing Organization Address City/[facility]/ZIP Co de Phone Number [facility] [address] [place] [address], [place] [phone] * Folate (10/29/2024 7:09 AM EST) [facility] Folate 3.2 2.8 - 17.0 ng/ml LAB CHEMISTRY METHOD 10/29/2024 12:24 PM EST [facility] Blood Venous blood specimen / Unknown Venipuncture / Unknown 10/29/2024 7:09 AM EST 10/29/2024 10:19 AM EST us Tremayne Collazo MD LAB BLOOD ORDERABLES Final Resu lt [facility] [address] [place] [address], [place] [phone] * Thyroid stimulating hormone (10/29/2024 7:09 AM EST) TSH 0.58 0.40 - 4.00 mcIU/mL LAB CHEMISTRY METHOD 10/29/2024 11:58 AM EST [facility] Blood Venous blood specimen / Unknown Venipuncture / Unknown 10/29/2024 7:09 AM EST 10/29/2024 10:19 AM EST us Tremayne Collazo MD LAB BLOOD ORDERABLES Final Resu lt [facility] [address] [place] [address], [place] [phone] * (ABNORMAL) Hemoglobin A1c (10/29/2024 7:09 AM EST) Hemoglobin A1C 6.9(H) <6.5 % LAB CHEMISTRY METHOD 10/29/2024 11:42 AM EST [facility] Mean Bld Glu Estim. 151 mg/dL LAB CHEMISTRY METHOD 10/29/2024 11:42 AM EST [facility] Blood Venous blood specimen / Unknown Venipuncture / Unknown 10/29/2024 7:09 AM EST 10/29/2024 10:19 AM EST us Tremayne Collazo MD LAB BLOOD ORDERABLES Final Resu lt [facility] [address] [place] [address], * (ABNORMAL) Comprehensive metabolic panel (10/29/2024 7:09 AM EST) Sodium 137 133 - 145 mmol/L LAB CHEMISTRY METHOD 10/29/2024 12:24 PM [facility] Potassium 5.2 3.5 - 5.5 mmol/L LAB CHEMISTRY METHOD 10/29/2024 12:24 PM [facility] Chloride 103 96 - 110 mmol/L LAB CHEMISTRY METHOD 10/29/2024 12:24 PM [facility] CO2 28 21 - 32 mmol/L LAB CHEMISTRY METHOD 10/29/2024 12:24 PM [facility] Anion Gap 6 3 - 11 LAB CHEMISTRY METHOD 10/29/2024 12:24 PM [facility] Glucose 164(H) 70 - 100 mg/dL LAB CHEMISTRY METHOD 10/29/2024 12:24 PM [facility] BUN 26(H) 5 - 25 mg/dL LAB CHEMISTRY METHOD 10/29/2024 12:24 PM [facility] Creatinine 0.77 0.70 - 1.30 mg/dL LAB CHEMISTRY METHOD 10/29/2024 12:24 PM [facility] eGFR 96 >=60 mL/min/1. 73m2 LAB CHEMISTRY METHOD 10/29/2024 12:24 PM [facility] Comment:Calculation based on the Chronic Kidney Disease Epidemiology Collaboration (CKD-EPI) equation refit without adjustment for race. BUN/Creatinine Ratio 33.8 LAB CHEMISTRY METHOD 10/29/2024 12:24 PM [facility] Calcium 8.0(L) 8.5 - 10.5 mg/dL LAB CHEMISTRY METHOD 10/29/2024 12:24 PM [facility] AST (SGOT) 15 10 - 42 unit/L LAB CHEMISTRY METHOD 10/29/2024 12:24 PM [facility] ALT (SGPT) 15 10 - 60 unit/L LAB CHEMISTRY METHOD 10/29/2024 12:24 PM [facility] Alkaline Phosphatase 56 42 - 121 unit/L LAB CHEMISTRY METHOD 10/29/2024 12:24 PM [facility] Total Protein 5.3(L) 6.0 - 8.0 g/dL LAB CHEMISTRY METHOD 10/29/2024 12:24 PM [facility] Albumin 2.0(L) 3.2 - 5.0 g/dL LAB CHEMISTRY METHOD 10/29/2024 12:24 PM [facility] Total Bilirubin 0.3 0.0 - 1.4 mg/dL LAB CHEMISTRY METHOD 10/29/2024 12:24 PM [facility] Blood Venous blood specimen / Unknown Venipuncture / Unknown 10/29/2024 7:09 AM EST 10/29/2024 10:19 AM EST us Tremayne Collazo MD LAB BLOOD ORDERABLES Final Resu lt [facility] [address] [place] [address], documented in this encounter Visit Diagnoses Diagnosis Peripheral vascular disease, unspecified (CMS/HCC V24) Peripheral vascular disease, unspecified Type 2 diabetes mellitus with foot ulcer (CODE) (CMS/HCC V24, CMS/HCC V28) Vitamin D deficiency, unspecified Type 2 diabetes mellitus with unspecified complications (CMS/HCC V24, CMS/HCC V28) documented in this encounter Care Teams Health Education Director Relationship Specialty Start Date End Date Abilio Chand MD [address] [place] [id number] PCP - General Internal Medicine 10/24/24 documented as of this encounter
--- OUTSIDE RECORDS SUMMARY | 2025-09-09 11:52 | XMS_ITS | Clinical Summary ---
Author Organization [facility] Address [address] [address] Phone Care Team Providers Care Cartography Technician Name Role Phone Sanya Araya MD Unavailable [phone] Abilio Chand MD Primary Care Provider [phone] Allergies No known active allergies Medications traZODone (DESYREL) 50 MG tablet 03/09/2023 Active tamsulosin (FLOMAX) 0.4 mg Cap 03/22/2023 Active PARoxetine (PAXIL) 30 MG tablet 04/02/2023 Active lisinopril-hydr oCHLOROthiazide (PRINZIDE,ZESTO RETIC) 10-12.5 mg per tablet Take 1 tablet by mouth daily. 04/02/2023 Active ketoconazole 2 % cream daily as needed. 02/08/2023 Active cyanocobalamin, vitamin B-12, 250 MCG tablet Take 250 mcg by mouth daily. Active clopidogrel (PLAVIX) 75 mg tablet Take 75 mg by mouth daily. 06/22/2023 Active metFORMIN (GLUCOPHAGE) 500 MG tablet Take 2 tablets (1,000 mg total) by mouth 2 (two) times a day. 360 tablet 2 04/07/2024 Active ONETOUCH DELICA PLUS LANCET 33 gauge Misc Inject 1 each into the skin 2 (two) times a day. 200 each 3 04/07/2024 Active COMFORT EZ PEN NEEDLES 33 gauge x 1/4 Ndle Inject 1 each under the skin daily. 100 each 3 04/07/2024 Active ONETOUCH ULTRA TEST Strp strips Place 1 strip onto the skin 2 (two) times a day. 200 strip 3 04/07/2024 Active empagliflozin (JARDIANCE) 25 mg tablet Take 1 tablet (25 mg total) by mouth daily. 90 tablet 1 02/17/2025 Active LANTUS SOLOSTAR U-100 INSULIN 100 unit/mL (3 mL) InPn injection penIndications: Type 2 diabetes mellitus with diabetic peripheral angiopathy without gangrene, with long-term current use of insulin Inject 46-50 Units under the skin nightly at bedtime. 15 mL 5 07/03/2025 Active glipiZIDE (GLUCOTROL XL) 5 MG 24 hr tablet Take 3 tablets (15 mg total) by mouth daily. 1 in the am 2 in the pm 270 tablet 2 07/23/2025 Active Active Problems Problem Noted Date Diagnosed Date [facility]CC current use of insulin 07/15/2024 Assessment & Plan (01/13/2025 9:17 AM EDT): Will maintain his lantus dosing Assessment & Plan (07/15/2024 9:27 AM EDT): Will maintain his lantus dosing meterman current use of oral hypoglycemic drug 07/15/2024 [...] partial amp. 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 Angioplasty 2020-Dr Araya. DRP, s/p bleed-laser. Dr [...] her glucose levels. Up to date with [facility]. Sees vascular for his foot. Labs ordered [...] tip dorsal surface. He will call his hotel receptionist, Dr Rasmussen. He has f/u w/ vascular surgeon Dr Araya in April. Atorvastatin is on hold b/o diarrhea. Will continue current DM Rx. Labs today. Reviewed symptoms, prevention, treatment of hypoglycemia call if blood sugar below 70 or over 250 repeatedly Encounters Date Type Department Care Team Description 07/23/2025 Refill [facility] [address] [place] [address] Suzanne Tariq [place] 07/03/2025 Refill [facility] [address] [place] [address] Brook Villarreal MD Medication Refill from Last [...] 10:00 AM EST Office Visit [facility] [address] [place] [address] [place] [address] Brook Villarreal MD [address] [place] [address] [place] [address] [email or web address] Maintenance Due Date Last Done Comments Adult Td,Tdap Booster 1953 DEPRESSION SCREENING 1965 HEPATITIS C SCREENING 1971 COLOGUARD 1998 COLONOSCOPY 1998 COLORECTAL CANCER SCREENING 1998 FIT TEST 1998 FOBT 1998 SIGMOIDOSCOPY 1998 VIRTUAL COLONOSCOPY 1998 RSV VACCINE (1 - Risk 50-74 years 1-dose series) 2003 ZOSTER VACCINES (1 of 2) 2003 PNEUMOCOCCAL VACCINES (50+ years) (2 of 2 - PCV) 01/04/2018 01/04/2017 ABDOMINAL AORTIC ANEURYSM (AAA) SCREENING 2018 DIABETIC EYE EXAM 04/03/2023 BLOOD PRESSURE 01/13/2025 07/15/2024 CREATININE LEVEL 02/07/2025 02/08/2024, 09/04/2023, 04/03/2023 POTASSIUM LEVEL 02/07/2025 02/08/2024, 09/04/2023, 04/03/2023 HEMOGLOBIN A1C 04/28/2025 10/29/2024, 04/03/2023 INFLUENZA VACCINE (#1) 2025 COVID-19 VACCINE ( - 2024-2 6 season) 2025 LIPID PANEL 10/29/2025 10/29/2024 SMOKING [...] Date/Time Associated Diagnosis Comments BASIC METABOLIC PANEL (BMP) Routine 02/08/2024 10:46 AM EDT Type 2 [...] Blood us Erica Ovalle PA-C LAB BLOOD BKR REE MYERS Final Result [address] [address] * (ABNORMAL) Hemoglobin A1c (04/03/2023 11:02 AM EDT) HEMOGLOBIN A1C 7.6(H) 4.3 - 5.8 % [facility] Blood 04/03/2023 11:0 2 AM EDT 04/03/2023 11:06 AM EDT us Brook Villarreal MD LAB BLOOD BKR ORDERABLES Final Result [address] [address] from Last 3 Months or Most Recently Relevant to Health Maintenance [place] [address] [place] [address] [address] [place] [place] [address] MEDICARE REPLACEMENT [address] [place] [id number] [place] [address] MEDICARE REPLACEMENT MEDICARE [place]PLAC[place] [place] [address] [address] [place] [address] [address] [place] [place] [address] MEDICARE REPLACEMENT MEDICARE REPLACEMENT MEDICARE REPLACEMENT Care Teams Cartography Technician Relationship Specialty Start Date End Date Abilio Chand MD [address] [place] [address] Dr Broderick [facility] [place] [address] PCP - General Internal Medicine 04/07/24 Sanya Araya MD [address] [address] Vascular Surgery 04/08/23 Additional Source Comments The information contained in this document represents components of the legal health record. It is not the complete legal health record.[facility]
== END 2025-09-09 11:10 | disposition home or self-care (01) ==
DX: I10 Essential (primary) hypertension (principal); E78.5 Hyperlipidemia, unspecified; E11.9 Type 2 diabetes mellitus without complications; Z89.512 Acquired absence of left leg below knee; F32.9 Major depressive disorder, single episode, unspecified; R33.9 Retention of urine, unspecified; Z23 Encounter for immunization

== ENCOUNTER → 2025-09-09 10:21 | Outpatient (BNVA) | payer MEDICARE, SELFPAY | DX: I10 Essential (primary) hypertension (principal); E78.5 Hyperlipidemia, unspecified; E11.9 Type 2 diabetes mellitus without complications; Z89.512 Acquired absence of left leg below knee; F32.9 Major depressive disorder, single episode, unspecified; R33.9 Retention of urine, unspecified; Z23 Encounter for immunization; E78.00 Pure hypercholesterolemia, unspecified | CPT/HCPCS: 83036; 90471; 90656; 99212 ==